=== PATIENT | male | born 1950 | race African-American/Black ===

== ENCOUNTER → 2016-11-22 | Outpatient (CLI) | payer BC, MEDICARE, OTHER ==
[2015-06-26 10:03] VITALS: BP 150/64
[~2016-11-22] MED LIST: AZIT500T PO; CEFP200T PO; GLYB5TAB3 PO; HYDR115S2 PO; METF10002 PO; OLME1TAB35 PO; SIMV20TA3 PO; [UNRECOGNIZED DRUG - OTHER]
--- NOTE | 2016-11-22 11:47 | RAD ---
Indication elevated PSA. Enlarged prostate.. Compromised renal function. Grayscale imaging targeted to the kidneys was performed. Examination is limited. The patient could not cooperate for the exam. Patient body habitus also limited the study. The urinary bladder appeared grossly normal. The right kidney measures 11.3 x 7 x 5.7 cm and appears normal showing no evidence of hydronephrosis or mass. The left kidney was not visualized. IMPRESSION: Limited study. No gross abnormality seen associated with the right kidney. Nonvisualization of the left kidney
--- NOTE | 2016-11-22 11:58 | RAD ---
Indication elevated PSA. Grayscale color Doppler and spectral imaging targeted to the scrotum was performed. The right testicle measures 3.8 x 3 x 2.2 cm and appears normal. No mass is seen. There is normal flow. The right epididymis is diffusely enlarged which may be a reflection of old disease. There is, additionally, a hypoechoic 5 mm mass in the right epididymis compatible with an epididymal cyst. A moderate right hydrocele is noted. The left testicle measures 4 x 3 x 2.3 cm. There is moderately large left hydrocele. There is no testicular mass and there is normal flow to the testicle. The epididymis is slightly enlarged similar to the contralateral side. Note was made during the examination of a right-sided varicocele. IMPRESSION: Normal testicles. Right epididymal cyst. Right-sided varicocele. Bilateral hydroceles left greater than right
== END | disposition home or self-care (01) ==
LOC: US 09:32
PROVIDERS: ATTEND Urology
DX: I86.1 Scrotal varices (principal); N50.3 Cyst of epididymis; N43.3 Hydrocele, unspecified; R97.20 Elevated prostate specific antigen [PSA]; N40.0 Benign prostatic hyperplasia without lower urinary tract symptoms
CPT/HCPCS: 76770; 76870

== ENCOUNTER 2016-12-06 14:16 | Emergency (ER) | payer OTHER ==
[2016-12-06] MEDS ORDERED: oxyCODONE/APAP 10/325 1 TAB TABLET PO ONE (15:00)
[2016-12-06 15:24] LABS: BASO # 0.1 x10^3/uL (0.0-0.2); BASO % 1 % (0-3); EOS # 0.2 x10^3/uL (0.0-0.7); EOS % 3 % (0-3); HEMATOCRIT 45.2 % (39.0-53.0); LYMPH # 1.9 x10^3/uL (1.0-4.8); LYMPH % 20 % (24-48); MEAN CORPUSCULAR HEMOGLOBIN 27 pg (25-35); MEAN CORPUSCULAR HGB CONC 33 g/dL (31-37); MEAN CORPUSCULAR VOLUME 81 fL (79-100); MONO # 1.1 x10^3/uL (0.0-1.1); MONO % 11 % (0-9); NEUT # 6.4 x10^3uL (1.8-7.7); NEUT % 66 % (31-73); PLATELET COUNT 150 x10^3/uL (140-400); RED BLOOD COUNT 5.58 x10^6/uL (4.30-5.70); RED CELL DISTRIBUTION WIDTH 16.9 % (11.5-14.5); WHITE BLOOD COUNT 9.8 x10^3/uL (4.0-11.0)
[2016-12-06 15:29] LABS: ALBUMIN 3.8 g/dL (3.4-5.0); ALBUMIN/GLOBULIN RATIO 0.8 (1.0-1.7); CALCIUM 9.4 mg/dL (8.5-10.1); CREATININE 1.3 mg/dL (0.7-1.3); POTASSIUM 4.1 mmol/L (3.5-5.1); TOTAL BILIRUBIN 0.4 mg/dL (0.2-1.0); TOTAL PROTEIN 8.3 g/dL (6.4-8.2)
--- NOTE | 2016-12-06 15:36 | RAD ---
Examination: CT of the abdomen pelvis without contrast History: History of right flank pain Comparison: 07/04/2014 Technique: Axial CT images of the abdomen pelvis were performed without contrast. Coronal and sagittal reformats were performed. PQRS Compliance Statement: One or more of the following individualized dose reduction techniques were utilized for this examination: 1. Automated exposure control 2. Adjustment of the mA and/or kV according to patient size 3. Use of iterative reconstruction technique collection Findings: The visualized bibasal lungs grossly appears unremarkable. No evidence of free air identified in the abdomen The evaluation of the solid is limited due to lack of IV contrast. The evaluation of the bowel is limited lack of oral contrast. There is a diffuse decreased attenuation noted throughout the liver likely hepatic steatosis. The visualized noncontrasted spleen, adrenals grossly appears unremarkable. Mild fatty atrophic changes of the pancreas. The stomach is mildly distended. Surgical clips are identified about the stomach likely prior surgical changes. Cholecystectomy clips are identified. The small bowel is nondilated. The appendix is normal. Feces and gas noted in the colon. The urinary bladder is mildly distended. Tiny punctate 1 mm intrarenal collecting system calculus identified in the right kidney. No hydronephrosis. Mild aortic atherosclerosis. Mild degenerative changes identified in the visualized thoracal lumbar spine. The caliber of the aorta grossly appears unremarkable. Moderate degenerative changes lumbar spine. Impression: 1. Tiny punctate 1 mm intrarenal system calculus identified in the right kidney. No evidence of hydronephrosis. 2. Hepatic steatosis.
--- NOTE | 2016-12-06 16:23 | ED.ADGEN ---
Past History Past Medical History: Diabetes, Hypertension Past Surgical History: Appendectomy, Cholecystectomy, Other Alcohol Use: None Drug Use: None Adult General Chief Complaint Chief Complaint Flank pain HPI HPI Patient is a 66-year-old Afro-L[place] male who presents with right flank pain. Pain began earlier today waxes and wanes and does not reproduce with position change or movement. Patient denies urinary frequency urgency, or anything pain. No fever chills, nausea vomiting or sweats. No other acute symptoms or complaints. Review of Systems Review of Systems ROS as per HPI. Current Medications Current Medications Current Medications Medications (Trade) Dose Ordered Sig/Jax Start Time Stop Time Status Last Admin Dose Admin Oxycodone/ Acetaminophen (Percocet 10/325) 1 tab 1X ONCE 12/06/16 15:00 12/06/16 15:01 DC 12/06/16 14:54 1 TAB Allergies Allergies Allergies Coded Allergies Type Severity Reaction Last Updated Verified No Known Drug Allergies 06/29/14 No Physical Exam Physical Exam Constitutional: Well developed, well nourished, no acute distress, non-toxic appearance. HENT: Normocephalic, atraumatic, bilateral external ears normal, oropharynx moist, no oral exudates, nose normal. Eyes: PERRLA, EOMI, conjunctiva normal. Neck: Normal range of motion, no tenderness, supple. Cardiovascular:Heart rate regular rhythm, no murmur. Lungs & Thorax: Bilateral breath sounds clear to auscultation. Abdomen: Bowel sounds normal, soft, no tenderness. Exam compromised by body habitus Skin: Warm, dry, no erythema. Back: Right CVA tenderness Extremities: No tenderness. Neurologic: Alert and oriented X 3, normal motor function, normal sensory function, no focal deficits noted. [] Psychologic: Affect normal, judgement normal, mood normal. [] Current Patient Data Vital Signs Vital Signs Date Time Temp Pulse Resp B/P (MAP) Pulse Ox O2 Delivery O2 Flow Rate FiO2 12/06/16 14:16 97.8 94 20 93 Room Air Lab Results Laboratory Tests Test 12/06/16 14:56 12/06/16 16:00 White Blood Count 9.8 x10^3/uL (4.0-11.0) Red Blood Count 5.58 x10^6/uL (4.30-5.70) Hemoglobin 15.0 g/dL (13.0-17.5) Hematocrit 45.2 % (39.0-53.0) Mean Corpuscular Volume 81 fL (79-100) Mean Corpuscular Hemoglobin 27 pg (25-35) Mean Corpuscular Hemoglobin Concent 33 g/dL (31-37) Red Cell Distribution Width 16.9 % (11.5-14.5) H Platelet Count 150 x10^3/uL (140-400) Neutrophils (%) (Auto) 66 % (31-73) Lymphocytes (%) (Auto) 20 % (24-48) L Monocytes (%) (Auto) 11 % (0-9) H Eosinophils (%) (Auto) 3 % (0-3) Basophils (%) (Auto) 1 % (0-3) Neutrophils # (Auto) 6.4 x10^3uL (1.8-7.7) Lymphocytes # (Auto) 1.9 x10^3/uL (1.0-4.8) Monocytes # (Auto) 1.1 x10^3/uL (0.0-1.1) Eosinophils # (Auto) 0.2 x10^3/uL (0.0-0.7) Basophils # (Auto) 0.1 x10^3/uL (0.0-0.2) Sodium Level 140 mmol/L (136-145) Potassium Level 4.1 mmol/L (3.5-5.1) Chloride Level 102 mmol/L (98-107) Carbon Dioxide Level 32 mmol/L (21-32) Anion Gap 6 (6-14) Blood Urea Nitrogen 26 mg/dL (8-26) Creatinine 1.3 mg/dL (0.7-1.3) Estimated GFR (Cockcroft-Gault) 67.0 BUN/Creatinine Ratio 20 (6-20) Glucose Level 134 mg/dL (70-99) H Calcium Level 9.4 mg/dL (8.5-10.1) Total Bilirubin 0.4 mg/dL (0.2-1.0) Aspartate Amino Transferase (AST) 17 U/L (15-37) Alanine Aminotransferase (ALT) 31 U/L (16-63) Alkaline Phosphatase 67 U/L (46-116) Total Protein 8.3 g/dL (6.4-8.2) H Albumin 3.8 g/dL (3.4-5.0) Albumin/Globulin Ratio 0.8 (1.0-1.7) L Urine Collection Type Unknown Urine Color Yellow Urine Clarity Clear Urine pH 6.0 Urine Specific [place] 1.010 Urine Protein Neg (NEG-TRACE) Urine Glucose (UA) >=1000 mg/dL (NEG) Urine Ketones (Stick) Neg mg/dL (NEG) Urine Blood Trace (NEG) Urine Nitrite Neg (NEG) Urine Bilirubin Neg (NEG) Urine Urobilinogen Dipstick 0.2 mg/dL (0.2 mg/dL) Urine Leukocyte Esterase Neg (NEG) Urine RBC 1-2 /HPF (0-2) Urine WBC 1-4 /HPF (0-4) Urine Squamous Epithelial Cells Few /LPF Urine Bacteria 0 /HPF (0-FEW) EKG EKG [] Radiology/Procedures Radiology/Procedures [CT abdomen pelvis: Intrarenal stone on right. Mild aortic disease. No other acute pathology per radiology report.] Course & Med Decision Making Course & Med Decision Making Pertinent Labs and Imaging studies reviewed. (See chart for details) [Episodic right flank pain, resolved with Percocet in the ED. No acute neurologic findings. CT abdomen pelvis shows intrarenal stone.] Final Impression Final Impression [1. Right flank pain] Problems: Dragon Disclaimer Dragon Disclaimer This electronic medical record was generated, in whole or in part, using a voice recognition dictation system. SHY BERRY DO December 06, 2016 16:23
[2016-12-06 16:29] LABS: BILIRUBIN,URINE NEG (NEG); CLARITY,URINE CLEAR; COLOR,URINE YELLOW; GLUCOSE,URINE >=1000 mg/dL (NEG); NITRITE,URINE NEG (NEG); UROBILINOGEN,URINE 0.2 mg/dL (0.2 mg/dL)
[2016-12-06 16:30] LABS: BACTERIA,URINE 0 /HPF (0-FEW); SQUAMOUS EPITHELIAL CELL,UR FEW /LPF
[2016-12-06 17:20] VITALS: BP 158/91
== END 2016-12-06 17:20 | disposition home or self-care (01) ==
LOC: ER 14:16
DX: R10.9 Unspecified abdominal pain (principal); E11.9 Type 2 diabetes mellitus without complications; I10 Essential (primary) hypertension
CPT/HCPCS: 36415; 74176; 80053; 81001; 85027; 99285-25

== ENCOUNTER → 2017-05-14 | Outpatient (CLI) | payer OTHER ==
--- NOTE | 2017-05-14 13:50 | RAD ---
Abdominal ultrasound, 05/14/2017: History: Fatty liver, screening for abdominal aortic aneurysm The gallbladder is surgically absent. The liver demonstrates increased echogenicity and diffuse pattern compatible with hepatic steatosis. It measures approximately 17 cm in craniocaudad extent at the level of the right lobe. No hepatic mass is seen. The common hepatic duct measures 5 mm. The pancreas and central retroperitoneum including the aorta and inferior vena cava were largely obscured due to the patient's size and overlying bowel. Note is made that the abdominal aorta was well visualized on the CT study of 12/06/2016 with no evidence of aneurysm. The spleen is of normal size. No renal abnormality is detected. No free fluid is evident in the abdomen. IMPRESSION: 1. Status post cholecystectomy. 2. Increased hepatic echogenicity suggesting hepatic steatosis. 3. Obscuration of the pancreas and central retroperitoneum due to overlying bowel.
== END | disposition home or self-care (01) ==
LOC: US 07:36
PROVIDERS: ATTEND Nurse Practitioner Family
DX: Z13.6 Encounter for screening for cardiovascular disorders (principal); Z87.891 Personal history of nicotine dependence; Z90.49 Acquired absence of other specified parts of digestive tract
CPT/HCPCS: 76700

== ENCOUNTER 2018-05-06 11:46 | Inpatient (IN) | payer OTHER ==
[~2018-05-06] VITALS: Ht 172.7 cm; Wt 163.0 kg
[~2018-05-06 11:46] MED LIST changes: -METF10002 PO; +METF10007 PO
[2018-05-06 12:21] LABS: BASO # 0.1 x10^3/uL (0.0-0.2); BASO % 1 % (0-3); EOS # 0.3 x10^3/uL (0.0-0.7); EOS % 4 % (0-3); HEMATOCRIT 35.9 % (39.0-53.0); HEMOGLOBIN 11.8 g/dL (13.0-17.5); LYMPH # 1.3 x10^3/uL (1.0-4.8); LYMPH % 15 % (24-48); MEAN CORPUSCULAR HEMOGLOBIN 27 pg (25-35); MEAN CORPUSCULAR HGB CONC 33 g/dL (31-37); MEAN CORPUSCULAR VOLUME 82 fL (79-100); MONO # 0.6 x10^3/uL (0.0-1.1); MONO % 7 % (0-9); NEUT # 6.5 x10^3uL (1.8-7.7); NEUT % 74 % (31-73); PLATELET COUNT 190 x10^3/uL (140-400); RED CELL DISTRIBUTION WIDTH 15.1 % (11.5-14.5); WHITE BLOOD COUNT 8.8 x10^3/uL (4.0-11.0)
--- NOTE | 2018-05-06 12:28 | RAD ---
Chest, PA and Lateral: Technique: PA and lateral views of the chest were obtained. History: Shortness of breath. Comparison: 09/24/2016. Findings: Mild cardiomegaly.. Mild prominent interstitial lung markings identified in the bilateral lungs appears similar to prior exam.. The pleural margins are clear. Impression: Mild prominent bilateral interstitial lung markings could be mild congestive changes or interstitial infiltrates.. Electronically signed by: Cornelius Rabago MD (05/06/2018 12:25 PM) [id number]
[2018-05-06] MEDS ORDERED: IPRATRPIUM/ALBUTEROL 0.5/2.5MG 3 ML NEBU. NEB ONE (12:30)
[2018-05-06 12:37] LABS: ALBUMIN 3.8 g/dL (3.4-5.0); ALBUMIN/GLOBULIN RATIO 0.9 (1.0-1.7); CALCIUM 8.7 mg/dL (8.5-10.1); CREATININE 2.1 mg/dL (0.7-1.3); GFR 38.4; MAGNESIUM 1.9 mg/dL (1.8-2.4); POTASSIUM 3.8 mmol/L (3.5-5.1); TOTAL BILIRUBIN 0.8 mg/dL (0.2-1.0); TOTAL PROTEIN 7.9 g/dL (6.4-8.2)
[2018-05-06] MEDS ORDERED: FUROSEMIDE 40 MG/4 ML VIAL IVP ONE (13:15)
--- NOTE | 2018-05-06 13:21 | PHYS DOC ---
Past History Past Medical History: Diabetes, Hypertension Past Surgical History: Appendectomy, Cholecystectomy, Other Alcohol Use: None Drug Use: None Adult General Chief Complaint Chief Complaint: SHORTNESS OF BREATH HPI HPI Patient is a 67 year old male who sent from his primary care physician office because of shortness of breath. Patient complaining of exertional shortness of breath since yesterday that is different and more than his usual without chest pain and cough. Patient complaining of generalized weakness without fever and chills, change of chronic lower extremity edema, vomiting and diarrhea. Patient taking diuretic and drinking more than eighth cups of liquid every day. Review of Systems Review of Systems Constitutional: Denies fever or chills [] Eyes: Denies change in visual acuity, redness, or eye pain [] HENT: Denies nasal congestion or sore throat [] Respiratory: Reports shortness of breath] Cardiovascular: No additional information not addressed in HPI [] GI: Denies abdominal pain, nausea, vomiting, bloody stools or diarrhea [] : Denies dysuria or hematuria [] Musculoskeletal: Denies back pain or joint pain [] Integument: Denies rash or skin lesions [] Neurologic: Denies headache, focal weakness or sensory changes [] Endocrine: Denies polyuria or polydipsia [] All other systems were reviewed and found to be within normal limits, except as documented in this note. Current Medications Current Medications Current Medications Medications (Trade) Dose Ordered Sig/Jax Start Time Stop Time Status Last Admin Dose Admin Albuterol/ Ipratropium (Duoneb) 3 ml 1X ONCE 05/06/18 12:30 05/06/18 12:31 DC 05/06/18 12:17 3 ML Furosemide (Lasix) 40 mg 1X ONCE 05/06/18 13:15 05/06/18 13:16 Allergies Allergies Allergies Coded Allergies Type Severity Reaction Last Updated Verified No Known Drug Allergies 06/29/14 No Physical Exam Physical Exam Constitutional: Well developed, well nourished, mild distress, non-toxic appearance, morbidly obese. [] HENT: Normocephalic, atraumatic, oropharynx moist, no oral exudates, nose normal. [] Eyes: PERRLA, EOMI, conjunctiva normal, no discharge. [] Neck: Normal range of motion, no tenderness, supple, no stridor. [] Cardiovascular:Heart rate regular rhythm, no murmur [] Lungs & Thorax: Bibasilar rates, decrease of air movement, no respiratory distress Abdomen: Bowel sounds normal, soft, no tenderness, no masses, no pulsatile masses. [] Skin: Warm, dry, no erythema, no rash. [] Back: No tenderness, no CVA tenderness. [] Extremities: No tenderness, no cyanosis, no clubbing, ROM intact, bilateral lower extremity elephantiasis Neurologic: Alert and oriented X 3, normal motor function, normal sensory function, no focal deficits noted. [] Psychologic: Affect normal, judgement normal, mood normal. [] Current Patient Data Vital Signs Vital Signs Date Time Temp Pulse Resp B/P (MAP) Pulse Ox O2 Delivery O2 Flow Rate FiO2 05/06/18 11:56 98.0 77 20 96 Room Air Lab Results Laboratory Tests Test 05/06/18 12:03 White Blood Count 8.8 x10^3/uL (4.0-11.0) Red Blood Count 4.40 x10^6/uL (4.30-5.70) Hemoglobin 11.8 g/dL (13.0-17.5) L Hematocrit 35.9 % (39.0-53.0) L Mean Corpuscular Volume 82 fL (79-100) Mean Corpuscular Hemoglobin 27 pg (25-35) Mean Corpuscular Hemoglobin Concent 33 g/dL (31-37) Red Cell Distribution Width 15.1 % (11.5-14.5) H Platelet Count 190 x10^3/uL (140-400) Neutrophils (%) (Auto) 74 % (31-73) H Lymphocytes (%) (Auto) 15 % (24-48) L Monocytes (%) (Auto) 7 % (0-9) Eosinophils (%) (Auto) 4 % (0-3) H Basophils (%) (Auto) 1 % (0-3) Neutrophils # (Auto) 6.5 x10^3uL (1.8-7.7) Lymphocytes # (Auto) 1.3 x10^3/uL (1.0-4.8) Monocytes # (Auto) 0.6 x10^3/uL (0.0-1.1) Eosinophils # (Auto) 0.3 x10^3/uL (0.0-0.7) Basophils # (Auto) 0.1 x10^3/uL (0.0-0.2) Sodium Level 144 mmol/L (136-145) Potassium Level 3.8 mmol/L (3.5-5.1) Chloride Level 105 mmol/L (98-107) Carbon Dioxide Level 31 mmol/L (21-32) Anion Gap 8 (6-14) Blood Urea Nitrogen 19 mg/dL (8-26) Creatinine 2.1 mg/dL (0.7-1.3) H Estimated GFR (Cockcroft-Gault) 38.4 BUN/Creatinine Ratio 9 (6-20) Glucose Level 136 mg/dL (70-99) H Lactic Acid Level 1.0 mmol/L (0.4-2.0) Calcium Level 8.7 mg/dL (8.5-10.1) Magnesium Level 1.9 mg/dL (1.8-2.4) Total Bilirubin 0.8 mg/dL (0.2-1.0) Aspartate Amino Transferase (AST) 14 U/L (15-37) L Alanine Aminotransferase (ALT) 19 U/L (16-63) Alkaline Phosphatase 81 U/L (46-116) Creatine Kinase 252 U/L (39-308) Troponin I Quantitative < 0.017 ng/mL (0-0.055) XE-Hyq-W-Type Natriuretic Peptide 685 pg/mL (0-124) H Total Protein 7.9 g/dL (6.4-8.2) Albumin 3.8 g/dL (3.4-5.0) Albumin/Globulin Ratio 0.9 (1.0-1.7) L EKG EKG EKG interpreted by me. EKG at 1250 showed normal sinus rhythm at rate of 82, prolonged ND interval at 258, left atrial abnormalities, left knott axis, poor R- wave progress in anteroseptal leads, no acute ST and T-wave abnormalities Radiology/Procedures Radiology/Procedures [address] [address] IMAGING REPORT Signed PATIENT: JULIO CESAR KRAUSE ACCOUNT: [id number] : 1950 LOCATION: ER AGE: 67 SEX: M EXAM STATUS: REG ER ORD. PHYSICIAN: KADEN VALENZUELA MD REASON: shortness of breath PROCEDURE: CHEST PA & LATERAL Chest, PA and Lateral: Technique: PA and lateral views of the chest were obtained. History: Shortness of breath. Comparison: 09/24/2016. Findings: Mild cardiomegaly.. Mild prominent interstitial lung markings identified in the bilateral lungs appears similar to prior exam.. The pleural margins are clear. Impression: Mild prominent bilateral interstitial lung markings could be mild congestive changes or interstitial infiltrates.. Electronically signed by: Cornelius Rabago MD (05/06/2018 12:25 PM) [id number] DICTATED AND SIGNED BY: CORNELIUS RABAGO MD DATE: 05/06/18 1221 CC: KADEN VALENZUELA MD; JOSE VAN DO ~ Course & Med Decision Making Course & Med Decision Making Pertinent Labs and Imaging studies reviewed. (See chart for details) Evaluation of patient in ER showed 67-year-old male patient with complaining of increasing shortness of breath since yesterday without chest pain, cough or fever and chills. Patient had bilateral lower lung rales without respiratory distress. Chest x-ray and labs showed CHF and mild elevation of d-dimer. Patient treated with Lasix. Documented except the admission at 1314. Dragon Disclaimer Dragon Disclaimer This electronic medical record was generated, in whole or in part, using a voice recognition dictation system. Departure Departure: Impression: Primary Impression: CHF exacerbation Additional Impressions: Dyspnea Morbid obesity Renal insufficiency Elephantiasis Anemia Elevated d-dimer Disposition: ADMITTED INPATIENT (at 1315) Admitting Physician: Nir Alvarado (accepted admission at 1314) Condition: IMPROVED Referrals: JOSE VAN DO (PCP) Problem Qualifiers KADEN VALENZUELA MD May 06, 2018 13:21
--- NOTE | 2018-05-06 13:37 | EKG ---
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
[2018-05-06 15:30] VITALS: BP 161/80
[2018-05-06] MEDS ORDERED: POTA10TA10 PO (16:47)
[2018-05-06] MEDS ORDERED: FURO-68 PO (16:47)
[2018-05-06] MEDS ORDERED: AMLO10TA6 PO (16:47)
[2018-05-06] MEDS ORDERED: SIMV80TA7 PO (16:47)
[2018-05-06] MEDS ORDERED: OMEP40CA5 PO (16:47)
[2018-05-06 19:35] VITALS: BP 152/83
[2018-05-06] MEDS ORDERED: ATORVASTATIN CALCIUM 20 MG TABLET PO SCH (21:00)
[2018-05-06] MEDS: POTASSIUM CHLORIDE 20 MEQ TABLET.ER. PO SCH (21:01)
[2018-05-06] MEDS: PANTOPRAZOLE 40 MG TABLET. PO SCH (21:01)
--- NOTE | 2018-05-06 21:10 | HP ---
ADMIT DATE: 05/06/2018 HISTORY OF PRESENT ILLNESS: The patient is a 67-year-old -[place] male patient who came to the Emergency Room, complaining of shortness of breath that started Saturday evening and continued until Saturday and he came this morning. He also complained of a cough with scanty white sputum. Also, marked swelling of both lower extremities that has been going on for almost 6 months now. He did gain some weight. He said that his weight in his office about 6 months ago was 375 and today, he weighed 385. He was extensively investigated in the Emergency Room and was found to have impaired kidney function with a creatinine of 2.1, slightly elevated beta-natriuretic peptide of 685. His D-dimer was high at 1.08, has also mild normochromic normocytic anemia. His chest x-ray showed mild cardiomegaly, mild prominent interstitial lung markings identified in the bilateral lung, appears similar to prior exam. The pleural margins are clear and it was attributed to mild congestive changes, interstitial infiltrate. His first set of cardiac enzymes showed troponin to be less than 0.017. The patient was admitted to do 2 more sets of cardiac enzymes, to consult Cardiology team as he probably has acute on chronic diastolic congestive heart failure. PAST MEDICAL HISTORY: Significant for type 2 diabetes, hyperlipidemia, hypertension and benign prostatic hypertrophy. PAST SURGICAL HISTORY: Significant for nasal surgery, carpal tunnel release, cholecystectomy, ventral hernia repair twice. He also underwent esophagogastroduodenoscopy and colonoscopy. ALLERGIES: He has no known drug allergies. MEDICATIONS: We are actually contacting his pharmacy to know exactly what medications he is on as he does not really know exactly what he is on now. FAMILY HISTORY: He has one brother, older and has diabetes. One sister is still alive and younger and has hypertension. His father is still alive at age 95 and has prostate cancer. Mother is alive at the age of 85 and has hypertension, hyperlipidemia. SOCIAL HISTORY: He is , has 2 sons, one of them lives with him and one lives next door. He quit smoking in 1979. He smoked for 13 years, about half a pack a day. He quit drinking alcohol when he was 53 years old. He quit marijuana also. 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. REVIEW OF SYSTEMS: The patient denied any blurring of vision, cataract, glaucoma or macular degeneration. Denied any earache, tinnitus or sensorineural deafness. Denied any nosebleeds, stuffy nose or postnasal drip. Denied any sore throat, sore tongue, toothache, hoarseness of voice or difficulty swallowing. He denied any nausea, vomiting, diarrhea or constipation. Denied any hematemesis, melena or hematochezia. Denied any dysuria, frequency or hematuria. Denied any chest pain, shortness of breath, orthopnea, paroxysmal nocturnal dyspnea. Denied any cough, phlegm or hemoptysis. Denied any chills, rigors or fever. Denied any dizziness, lightheadedness, or vertigo. He has an adjustable bed and he has orthopnea, but denied any paroxysmal nocturnal dyspnea. He has also marked exertional dyspnea. He said he can only walk a few feet with marked swelling of both lower extremities. PHYSICAL EXAMINATION: GENERAL: On examining him, he was sitting in the edge of the bed comfortably in no apparent respiratory distress. He was pale, but no jaundice, cyanosis, lymphadenopathy, no thyromegaly. No jugular venous distention with marked bilateral lower extremity edema. VITAL SIGNS: His heart rate was 88, blood pressure was 161/80, temperature was 98, respiratory rate 22 and oxygen saturation was 96%. HEENT: Showed normocephalic, atraumatic. NECK: Supple. HEART: Showed normal first and second heart sounds. No gallop, rub or murmur. CHEST: Clear to auscultation. No crepitation or rhonchi. ABDOMEN: Distended, soft, nontender. No guarding or rigidity. No organomegaly. Hernial orifice intact. Bowel sounds normal. NEUROLOGIC: He was awake, alert, responding appropriately. All cranial nerves intact. EXTREMITIES: He moves extremities without difficulty, ambulates without assistance or assistive devices. LABORATORY DATA: Showed a white cell count of 8800, hemoglobin 11.8, hematocrit 35.9, MCV 82 and platelet count of 190,000 with normal manual differential. His serum sodium was 144, potassium 3.8, chloride 105, bicarbonate 31, anion gap of 8, BUN 19, creatinine 2.1, estimated GFR was 38 mL per minute. His glucose is 136, calcium was 8.7, magnesium was 1.9. Total bilirubin, AST, ALT, alkaline phosphatase were normal. His CK was only 252. First set of cardiac enzymes show troponin to be less than 0.017 and beta-natriuretic peptide was 651. Total protein was 7.9, albumin was 3.8. His prothrombin time was 11, INR 1.1, aPTT was 27 and D-dimer was 1.08. RADIOLOGICAL DATA: His chest x-ray showed the patient has mild cardiomegaly with mild prominent bilateral interstitial lung markings. could be mild congestive changes or interstitial infiltrate. ASSESSMENT AND PLAN: The patient was treated with a dose of 40 mg of IV Lasix as well as albuterol and Atrovent. We will do 2 more sets of cardiac enzymes, check his fasting lipid profile tomorrow and consult the cardiology team. He seemed to have acute onset congestive heart failure, likely diastolic. LEONILA COLMENARES MD DR: TINY/gaurav JOB#: [id number] / [id number]
[2018-05-06 22:25] VITALS: BP 157/80
[2018-05-07 05:40] VITALS: BP 148/81
[2018-05-07 06:14] LABS: CALCIUM 8.2 mg/dL (8.5-10.1); GFR 40.7; POTASSIUM 3.6 mmol/L (3.5-5.1)
[2018-05-07] MEDS: amLODIPine BESYLATE 10 MG TABLET PO SCH (08:54)
[2018-05-07] MEDS: POTASSIUM CHLORIDE 20 MEQ TABLET.ER. PO SCH ×2 (08:54→21:36)
[2018-05-07] MEDS: PANTOPRAZOLE 40 MG TABLET. PO SCH ×2 (08:54→21:36)
--- NOTE | 2018-05-07 09:53 | PDOC2 ---
BLANE RCUZ DEPUTY SHERIFF 05/07/18 0953: CONSULT Date of Admission DATE: 05/07/18 TIME: 09:52 Reason for Consult: chf Problem List Problems Medical Problems: (1) Anemia Status: Acute (2) CHF exacerbation Status: Acute (3) Dyspnea Status: Acute (4) Elephantiasis Status: Acute (5) Elevated d-dimer Status: Acute (6) Morbid obesity Status: Acute (7) Renal insufficiency Status: Acute History of Present Illness Mr Don is a 67-year-old male with history of hypertension, hyperlipidemia , diabetes mellitus and asthma who presented to his PCP clinic yesterday with complaints of sudden onset dyspnea and dyspnea on exertion as well as non productive cough. He reports that he had been having a mild cough that progressed to dyspnea on exertion with walking 50 feet and with ADLs and light housework. He denies orthopnea or PND but does sleep for many years with elevated head of bed for comfort. He has chronic lymphedema and is unable to say if this is worse. His weight was 384 lbs which was up 6 pounds from his August appt. He was given IV lasix and breathing treatments and is unable to say which helped more but reports feeling much better today. He reports a history of asthma but doesn't use nebulizers or MDIs regularly. He had apparently been using nebulizers regular at home for the last 24 hours without relief. He denies any fever/chills/nausea/vomiting. He reports minimal sputum production with the cough and describes it as clear. He denies any other upper respiratory symptoms. He denies any chest discomfort/pain, palpitations, lightheadedness or syncope. He does however describes a feeling of chest congestion or fullness that has since resolved. Cardiovascular: HTN, hyperipidemia Pulmonary: Asthma CENTRAL NERVOUS SYSTEM: Periperal neuropathy (hand) Musculoskeletal: Swelling Renal/: Benign prostatic enlarg. Endocrine: Diabetes Past Surgical History hernia repair, cholecystectomy, septoplasty, carpal tunnel Family History prostate cancer, hyperlipidemia, hypertension and diabetes. No premature coronary disease Social History prior smoker, quit 1979, prior history of alcohol use, quit 13 yrs, and marijuana, quit 40 yrs. Current Medications Home meds reported 05/06/18 in PCP office: Simvastatin 80mg daily amlodipine 10mg daily Lasix 40mg daily DiovanHCT 320/25 daily Potassium 20meq daily Current Medications Albuterol/ Ipratropium (Duoneb) 3 ml 1X ONCE NEB Last administered on at 12:17; Start 05/06/18 at 12:30; Stop 05/06/18 at 12:31; Status DC Furosemide (Lasix) 40 mg 1X ONCE IVP Last administered on 05/06/18at 13:19; Start 05/06/18 at 13:15; Stop 05/06/18 at 13:16; Status DC Amlodipine Besylate (Norvasc) 10 mg DAILY PO Last administered on 05/07/18at 08 :54; Start 05/07/18 at 09:00 Pantoprazole Sodium (Protonix) 40 mg BID PO Last administered on 05/07/18at 08: 54; Start 05/06/18 at 21:00 Potassium Chloride (Klor-Con) 20 meq BID PO Last administered on 05/07/18at 08: 54; Start 05/06/18 at 21:00 Atorvastatin Calcium (Lipitor) 40 mg QHS PO Last administered on 05/06/18at 21: 01; Start 05/06/18 at 21:00 Active Scripts Active Reported Amlodipine Besylate 10 Mg Tablet 1 Tab PO DAILY Omeprazole 40 Mg Capsule.dr 40 Mg PO BID Lasix (Furosemide) 40 Mg Tablet 1 Tab PO DAILY Potassium Chloride 10 Meq Tablet.er 20 Meq PO BID Simvastatin 80 Mg Tablet 1 Tab PO QHS Allergies: Coded Allergies: No Known Drug Allergies (Unverified , 06/29/14) Review of System as per HPI or negative General: Alert, Oriented X3, Cooperative, No acute distress HEENT: Atraumatic, EOMI, Mucous membr. moist/pink, Other (no carotid bruits) Lungs: Clear to auscultation, Normal air movement Heart: Regular rate, Normal S1, Normal S2, Other (no gallops, clicks or rubs) Abdomen: Normal bowel sounds, Soft, No tenderness, Other (obese) Extremities: Other (bilateral lower extremity lymphedema, non pitting) Neuro: Normal speech, Strength at 5/5 X4 ext Psych/Mental Status: Mental status NL, Mood NL VITALS Vital Signs Date Time Temp Pulse Resp B/P (MAP) Pulse Ox O2 Delivery O2 Flow Rate FiO2 05/07/18 08:54 85 148/81 05/07/18 08:50 Room Air 05/07/18 05:40 98.4 20 94 Labs Laboratory Tests Test 05/06/18 12:03 05/06/18 12:52 05/06/18 16:50 05/06/18 20:20 White Blood Count 8.8 x10^3/uL (4.0-11.0) Red Blood Count 4.40 x10^6/uL (4.30-5.70) Hemoglobin 11.8 g/dL (13.0-17.5) Hematocrit 35.9 % (39.0-53.0) Mean Corpuscular Volume 82 fL (79-100) Mean Corpuscular Hemoglobin 27 pg (25-35) Mean Corpuscular Hemoglobin Concent 33 g/dL (31-37) Red Cell Distribution Width 15.1 % (11.5-14.5) Platelet Count 190 x10^3/uL (140-400) Neutrophils (%) (Auto) 74 % (31-73) Lymphocytes (%) (Auto) 15 % (24-48) Monocytes (%) (Auto) 7 % (0-9) Eosinophils (%) (Auto) 4 % (0-3) Basophils (%) (Auto) 1 % (0-3) Neutrophils # (Auto) 6.5 x10^3uL (1.8-7.7) Lymphocytes # (Auto) 1.3 x10^3/uL (1.0-4.8) Monocytes # (Auto) 0.6 x10^3/uL (0.0-1.1) Eosinophils # (Auto) 0.3 x10^3/uL (0.0-0.7) Basophils # (Auto) 0.1 x10^3/uL (0.0-0.2) Sodium Level 144 mmol/L (136-145) Potassium Level 3.8 mmol/L (3.5-5.1) Chloride Level 105 mmol/L (98-107) Carbon Dioxide Level 31 mmol/L (21-32) Anion Gap 8 (6-14) Blood Urea Nitrogen 19 mg/dL (8-26) Creatinine 2.1 mg/dL (0.7-1.3) Estimated GFR (Cockcroft-Gault) 38.4 BUN/Creatinine Ratio 9 (6-20) Glucose Level 136 mg/dL (70-99) Lactic Acid Level 1.0 mmol/L (0.4-2.0) Calcium Level 8.7 mg/dL (8.5-10.1) Magnesium Level 1.9 mg/dL (1.8-2.4) Total Bilirubin 0.8 mg/dL (0.2-1.0) Aspartate Amino Transf (AST/SGOT) 14 U/L (15-37) Alanine Aminotransferase (ALT/SGPT) 19 U/L (16-63) Alkaline Phosphatase 81 U/L (46-116) Creatine Kinase 252 U/L (39-308) Troponin I Quantitative < 0.017 ng/mL (0-0.055) < 0.017 ng/mL (0-0.055) < 0.017 ng/mL (0-0.055) JZ-Uah-G-Type Natriuretic Peptide 685 pg/mL (0-124) Total Protein 7.9 g/dL (6.4-8.2) Albumin 3.8 g/dL (3.4-5.0) Albumin/Globulin Ratio 0.9 (1.0-1.7) Prothrombin Time 11.0 SEC (9.4-11.4) Prothromb Time International Ratio 1.1 (0.9-1.1) Activated Partial Thromboplast Time 27 SEC (23-33) D-Dimer (Do) 1.08 mg/L (0.00-0.50) Test 05/06/18 20:59 05/07/18 05:45 05/07/18 07:34 Glucose (Fingerstick) 120 mg/dL (70-99) 95 mg/dL (70-99) Sodium Level 143 mmol/L (136-145) Potassium Level 3.6 mmol/L (3.5-5.1) Chloride Level 105 mmol/L (98-107) Carbon Dioxide Level 31 mmol/L (21-32) Anion Gap 7 (6-14) Blood Urea Nitrogen 18 mg/dL (8-26) Creatinine 2.0 mg/dL (0.7-1.3) Estimated GFR (Cockcroft-Gault) 40.7 Glucose Level 97 mg/dL (70-99) Calcium Level 8.2 mg/dL (8.5-10.1) Images CXR - Mild prominent bilateral interstitial lung markings could be mild congestive changes or interstitial infiltrates. Assessment/Plan 1. acute respiratory insufficiency - likely acute diastolic heart failure secondary to uncontrolled HTN. Possibly component of COPD exacerbation. Currently well compensated, diuresed ~1.5 liters. Await echo for LV function. 2. accelerated hypertension - resume home medications including Diovan, amlodipine, lasix 3. hyperlipidemia - check lipids and resume home statin. 4. CKD stage 3 - Cr currently 2.0. Cr in Aug 2.4, in Mar 2017 Cr was 1.4. Consider renal consult. ? 24 hr urine. 5. diabetes mellitus - per PCP, consider alternative to Actos 6. lymphedema - per PCP 7. elevated d dimer - venous duplex and if negative VQ Consider outpatient MPI due to multiple patient risk factors. MALVIN LUZ MD 05/07/18 1621: CONSULT Assessment/Plan Pt. seen and examined. 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 No angina. Dyspnea likely due to obesity echo with normal LV function. Supportive care with outpt MPI to be considered. BLANE CRUZ APRN May 07, 2018 09:53 MALVIN LUZ MD May 07, 2018 16:21
--- NOTE | 2018-05-07 10:05 | CARD ---
MR#: [id number] Date of Study: 05/07/2018 Ordering Physician: LEONILA COLMENARES, Referring Physician: LEONILA COLMENARES Tech: Louisa Gonsalez RDCS APPROVED REPORT EXAM: Two-dimensional and M-mode echocardiogram with Doppler and color Doppler. Other Information Quality : Fair INDICATION LV Function:Systolic Congestive Heart Failure RISK FACTORS Obesity 2D DIMENSIONS RVDd3.0 (2.9-3.5cm)Left Atrium(2D)4.8 (1.6-4.0cm) IVSd1.6 (0.7-1.1cm)Aortic Root(2D)2.9 (2.0-3.7cm) LVDd5.2 (3.9-5.9cm)LVOT Diameter2.3 (1.8-2.4cm) PWd1.6 (0.7-1.1cm)LVDs4.4 (2.5-4.0cm) FS (%) 30.0 %SV39.4 ml LVEF(%)60.0 (>50%) Aortic Valve AoV Peak Robe.136.6cm/sAoV VTI24.4cm AO Peak GR.7.5mmHgLVOT Peak Robe.94.1cm/s LVOT VTI 22.90cmAO Mean GR.4mmHg ZAID (VMAX)2.30ep2YDQ (VTI)3.75cm2 Mitral Valve MV E Afcrpwpr874.0cm/sMV DECEL [id number] MV A Xqkhjtbf120.2cm/sE/A Ratio0.9 Pulmonary Vein S1 Rmxmymqj18.9cm/sD2 Cmqrtbmq87.3cm/s LEFT VENTRICLE The left ventricle is normal size. There is mild to moderate concentric left ventricular hypertrophy. The left ventricular systolic function is normal. The Ejection Fraction is 55-60%. There is normal L V segmental wall motion. Transmitral Doppler flow pattern is Grade I-abnormal relaxation pattern. RIGHT VENTRICLE The right ventricle is normal size. The right ventricular systolic function is normal. ATRIA The left atrium is mildly dilated. The right atrium size is normal. The interatrial septum is intact with no evidence for an atrial septal defect or patent foramen ovale as noted on 2-D or Doppler imagi ng. AORTIC VALVE The aortic valve is calcified but opens well. Doppler and Color Flow revealed no significant aortic r egurgitation. There is no significant aortic valvular stenosis. MITRAL VALVE The mitral valve is normal in structure and function. There is no evidence of mitral valve prolapse. There is no mitral valve stenosis. Doppler and Color-flow revealed mild mitral regurgitation. TRICUSPID VALVE The tricuspid valve is normal in structure and function. Doppler and Color Flow revealed no tricuspid valve regurgitation noted. There is no tricuspid valve stenosis. PULMONIC VALVE The pulmonic valve is not well visualized. Doppler and Color Flow revealed no pulmonic valvular regur gitation. There is no pulmonic valvular stenosis. GREAT VESSELS The aortic root is normal in size. The ascending aorta is normal in size. The IVC was not visualized. PERICARDIAL EFFUSION There is no evidence of significant pericardial effusion. Critical Notification Critical Value: No <Conclusion> The left ventricular systolic function is normal. The Ejection Fraction is 55-60%. There is normal LV segmental wall motion. Doppler and Color-flow revealed mild mitral regurgitation. There is no evidence of significant pericardial effusion. Signed by : Del Edwards, Electronically Approved : 05/07/2018 10:05:04
[2018-05-07 10:32] VITALS: BP 159/73
[2018-05-07 14:33] VITALS: BP 122/73
[2018-05-07] MEDS: HEPARIN PF for SUB-Q USE 5,000 UNIT/0.5 ML VIAL. SQ SCH ×2 (14:34→21:44)
[2018-05-07 15:45] LABS: CALCIUM 8.8 mg/dL (8.5-10.1); GFR 40.7; POTASSIUM 3.9 mmol/L (3.5-5.1)
--- NOTE | 2018-05-07 17:09 | RAD ---
RENAL COMPLETE BILATERAL History: Impaired kidney function Comparison: None. Findings: Sonographic images of the abdomen are submitted. Exam is very limited due to patient's body habitus. Right kidney is faintly visualized estimated about 12.4 x 5 cm x 5.2 cm without hydronephrosis. Left kidney is not well-visualized. Bladder is not well visualized. Impression: 1. Right kidney is visualized without significant hydronephrosis, left kidney not seen. Electronically signed by: Tiago Arboleda MD (05/07/2018 5:06 PM) [id number]
--- NOTE | 2018-05-07 18:11 | RAD ---
Nuclear medicine ventilation/perfusion scan. History: Shortness of air. Symptoms for 2 days. Elevated d-dimer. Comparison: Chest radiograph . Technique: Ventilation portion was performed after inhalation of 18.5 mCi Xenon-133. Perfusion portion was performed after intravenous administration of 5.4 mCi Tc 99m MAA. Findings: Ventilation study is normal. Perfusion study demonstrates no large wedge-shaped perfusion defects. There is mildly heterogeneous perfusion. Examination is considered low probability. Impression: Low probability VQ scan. Electronically signed by: Jaiden Ramirez MD (05/07/2018 6:07 PM) [facility]
[2018-05-07 19:40] VITALS: BP 164/84
[2018-05-07] MEDS ORDERED: ATORVASTATIN CALCIUM 20 MG TABLET PO SCH (21:00)
[2018-05-07 22:52] VITALS: BP 133/74
[2018-05-07 23:12] LABS: HEMOGLOBIN A1C 6.8 % (4.8-5.6)
--- NOTE | 2018-05-08 03:54 | PN ---
DATE: 05/07/2018 SUBJECTIVE: The patient is resting, slightly propped up in bed, no apparent distress. He is awake, alert. On questioning him, he denied any complaint, in particular he has had no further episodes of shortness of breath. He has had 3 sets of cardiac enzymes that ruled out myocardial infarction. However, apparently, it transpired that his serum creatinine about a year ago was only 1.2 and his creatinine has risen since then. The patient denied any symptoms suggestive of enlarged prostate or urinary retention. His lab work also showed elevated D-dimer of 1.08. Clinically, the patient does not seem to be fluid overloaded and his echocardiogram done showed that his ejection fraction showed that his left ventricular systolic function is normal, ejection fraction 55-60%. He has normal left ventricular segmental wall motion, showed he has mild mitral regurgitation and no significant pericardial effusion. PLAN: To arrange for him to have a V/Q scan. He did have a Doppler ultrasound. The results of which is still pending at the time of this dictation. I will start him on heparin 5000 units subcutaneously 3 times a day for DVT prophylaxis and await the result of the imaging studies. LEONILA COLMENARES MD DR: TINY/gaurav JOB#: [id number] / [id number]
--- NOTE | 2018-05-08 04:45 | RAD ---
MR#: [id number] Date of Study: 05/07/2018 Ordering Physician: BLANE CRUZ, Referring Physician: LEONILA COLMENARES, Tech: Nathaly Miller RDMS, WICHOT, RTR APPROVED REPORT Bilateral Lower Extremity Venous Study for DVT Patient Location: IN-PATIENT Indications Lower Extremity Edema: Bilateral Grayscale images of the bilateral common femoral, saphenofemoral junctions, proximal, mid and distal superficial femoral veins and popliteal veins are limited but grossly there is no evidence of thrombu s with compressibility of these vessels noted. Spectral waveforms and color Doppler do not reveal any significant obstruction to flow. The below-knee veins are not well visualized but there is spontaneo us flow noted. Overall, technically difficult study but no gross evidence of proximal DVT Critical Notification Critical Value: No <Conclusion> 1. Technically very difficult study but within these limitations no gross evidence of proximal DVT bi laterally in the lower extremities Signed by : Charly Starkey, Electronically Approved : 05/08/2018 04:44:56
[2018-05-08 05:08] VITALS: BP 137/79
[2018-05-08] MEDS: HEPARIN PF for SUB-Q USE 5,000 UNIT/0.5 ML VIAL. SQ SCH ×2 (05:28→14:00)
[2018-05-08 06:07] LABS: CALCIUM 8.8 mg/dL (8.5-10.1); GFR 40.7; POTASSIUM 3.8 mmol/L (3.5-5.1)
[2018-05-08] MEDS: POTASSIUM CHLORIDE 20 MEQ TABLET.ER. PO SCH (08:37)
[2018-05-08] MEDS: amLODIPine BESYLATE 10 MG TABLET PO SCH (08:37)
[2018-05-08] MEDS: PANTOPRAZOLE 40 MG TABLET. PO SCH (08:37)
--- NOTE | 2018-05-08 09:46 | PDOC ---
PROGRESS NOTES Diagnosis Problem Problems Medical Problems: (1) Anemia Status: Acute (2) CHF exacerbation Status: Acute (3) Dyspnea Status: Acute (4) Elephantiasis Status: Acute (5) Elevated d-dimer Status: Acute (6) Morbid obesity Status: Acute (7) Renal insufficiency Status: Acute Assessment Problems Medical Problems: (1) Anemia Status: Acute (2) CHF exacerbation Status: Acute (3) Dyspnea Status: Acute (4) Elephantiasis Status: Acute (5) Elevated d-dimer Status: Acute (6) Morbid obesity Status: Acute (7) Renal insufficiency Status: Acute 1. acute on chronic diastolic heart failure - compensated. Normal LV function , normal wall motion, mild MR by echo. 2. hypertension - improved control. On amlodipine. add hydralazine as needed. No ACEI/ARB at this time due to renal insufficiency. 3. CKD stage 3, Cr 2.0 today. Cr was normal at 1.2 in Mar of last year. Suggest outpatient renal evaluation and needs 24 hour urine testing. 4. hyperlipidemia - well controlled. Home on lipitor, no zocor due to amlodipine. 5. DM - per PCP 6. elevated d dimer - neg venous duplex and VQ Will plan for outpatient MPI (scheduled) due to multiple risk factors and follow up (scheduled). Subjective feeling fine, no dyspnea, no chest pain, no palpitations Objective Vital Signs Date Time Temp Pulse Resp B/P (MAP) Pulse Ox O2 Delivery O2 Flow Rate FiO2 05/08/18 08:37 86 137/79 05/08/18 08:30 Room Air 05/08/18 05:08 97.5 20 94 Intake and Output 05/08/18 07:00 Intake Total 2395 ml Output Total 4100 ml Balance -1705 ml Intake Oral 2395 ml Output Urine Total 4100 ml # Voids 2 # Bowel Movements 2 Heart: Regular rate, Normal S1, Normal S2 Extremities: No cyanosis, Normal pulses, Other (chronic edema) General: Alert, Oriented X3, Cooperative, No acute distress Lungs: Clear to auscultation Neuro: Normal speech, Strength at 5/5 X4 ext Psych/Mental Status: Mental status NL, Mood NL Review of Relevant I have reviewed the following items debi (where applicable) has been applied. Labs Laboratory Tests Test 05/06/18 12:03 05/06/18 12:52 05/06/18 16:50 05/06/18 20:20 White Blood Count 8.8 x10^3/uL (4.0-11.0) Red Blood Count 4.40 x10^6/uL (4.30-5.70) Hemoglobin 11.8 g/dL (13.0-17.5) Hematocrit 35.9 % (39.0-53.0) Mean Corpuscular Volume 82 fL (79-100) Mean Corpuscular Hemoglobin 27 pg (25-35) Mean Corpuscular Hemoglobin Concent 33 g/dL (31-37) Red Cell Distribution Width 15.1 % (11.5-14.5) Platelet Count 190 x10^3/uL (140-400) Neutrophils (%) (Auto) 74 % (31-73) Lymphocytes (%) (Auto) 15 % (24-48) Monocytes (%) (Auto) 7 % (0-9) Eosinophils (%) (Auto) 4 % (0-3) Basophils (%) (Auto) 1 % (0-3) Neutrophils # (Auto) 6.5 x10^3uL (1.8-7.7) Lymphocytes # (Auto) 1.3 x10^3/uL (1.0-4.8) Monocytes # (Auto) 0.6 x10^3/uL (0.0-1.1) Eosinophils # (Auto) 0.3 x10^3/uL (0.0-0.7) Basophils # (Auto) 0.1 x10^3/uL (0.0-0.2) Sodium Level 144 mmol/L (136-145) Potassium Level 3.8 mmol/L (3.5-5.1) Chloride Level 105 mmol/L (98-107) Carbon Dioxide Level 31 mmol/L (21-32) Anion Gap 8 (6-14) Blood Urea Nitrogen 19 mg/dL (8-26) Creatinine 2.1 mg/dL (0.7-1.3) Estimated GFR (Cockcroft-Gault) 38.4 BUN/Creatinine Ratio 9 (6-20) Glucose Level 136 mg/dL (70-99) Lactic Acid Level 1.0 mmol/L (0.4-2.0) Calcium Level 8.7 mg/dL (8.5-10.1) Magnesium Level 1.9 mg/dL (1.8-2.4) Total Bilirubin 0.8 mg/dL (0.2-1.0) Aspartate Amino Transf (AST/SGOT) 14 U/L (15-37) Alanine Aminotransferase (ALT/SGPT) 19 U/L (16-63) Alkaline Phosphatase 81 U/L (46-116) Creatine Kinase 252 U/L (39-308) Troponin I Quantitative < 0.017 ng/mL (0-0.055) < 0.017 ng/mL (0-0.055) < 0.017 ng/mL (0-0.055) RK-Vty-D-Type Natriuretic Peptide 685 pg/mL (0-124) Total Protein 7.9 g/dL (6.4-8.2) Albumin 3.8 g/dL (3.4-5.0) Albumin/Globulin Ratio 0.9 (1.0-1.7) Prothrombin Time 11.0 SEC (9.4-11.4) Prothromb Time International Ratio 1.1 (0.9-1.1) Activated Partial Thromboplast Time 27 SEC (23-33) D-Dimer (Do) 1.08 mg/L (0.00-0.50) Test 05/06/18 20:59 05/07/18 05:45 05/07/18 07:34 05/07/18 11:25 Glucose (Fingerstick) 120 mg/dL (70-99) 95 mg/dL (70-99) 122 mg/dL (70-99) Sodium Level 143 mmol/L (136-145) Potassium Level 3.6 mmol/L (3.5-5.1) Chloride Level 105 mmol/L (98-107) Carbon Dioxide Level 31 mmol/L (21-32) Anion Gap 7 (6-14) Blood Urea Nitrogen 18 mg/dL (8-26) Creatinine 2.0 mg/dL (0.7-1.3) Estimated GFR (Cockcroft-Gault) 40.7 Glucose Level 97 mg/dL (70-99) Hemoglobin A1c 6.8 % (4.8-5.6) Calcium Level 8.2 mg/dL (8.5-10.1) Triglycerides Level 60 mg/dL (0-150) Cholesterol Level 122 mg/dL (0-200) LDL Cholesterol, Calculated 69 mg/dL (0-100) VLDL Cholesterol, Calculated 12 mg/dL (0-40) Non-HDL Cholesterol Calculated 81 mg/dL (0-129) HDL Cholesterol 41 mg/dL (40-60) Cholesterol/HDL Ratio 2.0 Test 05/07/18 15:24 05/07/18 17:05 05/07/18 20:27 05/08/18 05:35 Sodium Level 140 mmol/L (136-145) 142 mmol/L (136-145) Potassium Level 3.9 mmol/L (3.5-5.1) 3.8 mmol/L (3.5-5.1) Chloride Level 103 mmol/L (98-107) 104 mmol/L (98-107) Carbon Dioxide Level 31 mmol/L (21-32) 31 mmol/L (21-32) Anion Gap 6 (6-14) 7 (6-14) Blood Urea Nitrogen 19 mg/dL (8-26) 17 mg/dL (8-26) Creatinine 2.0 mg/dL (0.7-1.3) 2.0 mg/dL (0.7-1.3) Estimated GFR (Cockcroft-Gault) 40.7 40.7 Glucose Level 136 mg/dL (70-99) 110 mg/dL (70-99) Calcium Level 8.8 mg/dL (8.5-10.1) 8.8 mg/dL (8.5-10.1) Glucose (Fingerstick) 119 mg/dL (70-99) 130 mg/dL (70-99) Test 05/08/18 07:28 Glucose (Fingerstick) 108 mg/dL (70-99) Microbiology 05/06/18 Blood Culture - Preliminary, Resulted NO GROWTH AFTER 1 DAY... Medications Current Medications Albuterol/ Ipratropium (Duoneb) 3 ml 1X ONCE NEB Last administered on at 12:17; Start 05/06/18 at 12:30; Stop 05/06/18 at 12:31; Status DC Furosemide (Lasix) 40 mg 1X ONCE IVP Last administered on 05/06/18at 13:19; Start 05/06/18 at 13:15; Stop 05/06/18 at 13:16; Status DC Amlodipine Besylate (Norvasc) 10 mg DAILY PO Last administered on 05/08/18 08 :37; Start 05/07/18 at 09:00 Pantoprazole Sodium (Protonix) 40 mg BID PO Last administered on 05/08/18at 08: 37; Start 05/06/18 at 21:00 Potassium Chloride (Klor-Con) 20 meq BID PO Last administered on 05/08/18at 08: 37; Start 05/06/18 at 21:00 Atorvastatin Calcium (Lipitor) 40 mg QHS PO Last administered on 05/06/18at 21: 01; Start 05/06/18 at 21:00; Stop 05/07/18 at 12:20; Status DC Atorvastatin Calcium (Lipitor) 80 mg QHS PO Last administered on 05/07/18at 21: 36; Start 05/07/18 at 21:00 Heparin Sodium (Porcine) (Heparin Sq) 5,000 unit Q8HRS SQ Last administered on 05/08/18 05:28; Start 05/07/18 at 14:30 Active Scripts Active Reported Amlodipine Besylate 10 Mg Tablet 1 Tab PO DAILY Omeprazole 40 Mg Capsule.dr 40 Mg PO BID Lasix (Furosemide) 40 Mg Tablet 1 Tab PO DAILY Potassium Chloride 10 Meq Tablet.er 20 Meq PO BID Simvastatin 80 Mg Tablet 1 Tab PO QHS Vitals/I & O Vital Sign - Last 24 Hours 05/07/18 05/07/18 05/07/18 05/07/18 10:32 14:33 19:30 19:40 Temp 98.0 98.1 98.2 Pulse 84 89 82 Resp 20 20 20 B/P (MAP) 159/73 (101) 122/73 (89) 164/84 (110) Pulse Ox 96 94 97 O2 Delivery Room Air Room Air Room Air Room Air 05/07/18 05/08/18 05/08/18 05/08/18 22:52 05:08 08:30 08:37 Temp 98.1 97.5 Pulse 88 86 86 Resp 20 20 B/P (MAP) 133/74 (93) 137/79 (98) 137/79 Pulse Ox 95 94 O2 Delivery Room Air Room Air Room Air Intake and Output 05/07/18 05/07/18 05/08/18 15:00 23:00 07:00 Intake Total 880 ml 1215 ml 300 ml Output Total 850 ml 2000 ml 1250 ml Balance 30 ml -785 ml -950 ml BLANE CRUZ CANDLE CUTTER May 08, 2018 09:45
[2018-05-08 11:12] VITALS: BP 138/69
[2018-05-08 15:28] VITALS: BP 159/84
--- NOTE | 2018-05-09 03:31 | DS ---
DATE OF DISCHARGE: 05/08/2018 HOSPITAL COURSE: The patient is a 67-year-old -[place] male patient, who was admitted with increasing shortness of breath that started last Saturday evening and continued until Saturday and he came on Saturday morning. He complained of cough with scanty white sputum, marked swelling of both lower extremities that has been going on for almost 6 months. He did gain some weight. He said that his weight in his office about 6 months ago was 375 and today was 385. He was extensively investigated in the Emergency Room and was found to have impaired kidney function with a creatinine of 2.1, slightly elevated beta-natriuretic peptide, high D-dimer and mild normochromic normocytic anemia. His chest x-ray showed mild cardiomegaly, mild prominent interstitial lung markings identified in bilateral lungs. He was treated with IV Lasix. He had 3 sets of cardiac enzymes that ruled out myocardial infarction. He has had Doppler ultrasound of both lower extremities and the lung perfusion and ventilation scan was interpreted as normal and low probability. He has had an echocardiogram, which showed that his left ventricular systolic function is normal with ejection fraction of 55%-60% with normal left ventricular segmental wall motion. There is mild mitral regurgitation, no significant pericardial effusion. His kidney function has slightly worsened, but has been stable and the patient remained stable, had no further episodes of shortness of breath and a decision was made to discharge him home to follow up as an outpatient with the cardiology team for outpatient stress test and follow up with them as an outpatient. PHYSICAL EXAMINATION: GENERAL: When I saw him this afternoon, he was sitting comfortably in his chair, in no apparent respiratory distress. Slightly pale, but no jaundice, cyanosis, or thyromegaly. No jugular venous distension. No limb edema. VITAL SIGNS: His heart rate was 76, blood pressure was 159/84, temperature was 98.3, respiratory rate 20, and oxygen saturation was 96%. HEAD, EYES, EARS, NOSE AND THROAT: Normocephalic, atraumatic. NECK: Supple. HEART: Showed normal first and second heart sounds with no gallop, rub or murmur. CHEST: Clear to auscultation. No crepitation or rhonchi. ABDOMEN: Distended, soft, nontender. NEUROLOGIC: He is awake, alert, responding appropriately with cranial nerves intact. EXTREMITIES: He moves extremities without difficulty, ambulates without assistance or assistive devices. LABORATORY DATA: This morning showed a serum sodium of 142, potassium 3.8, chloride 104, bicarbonate 31, anion gap of 7, BUN 17, creatinine 2, estimated GFR was 40 mL per minute, his glucose was 110. Calcium was 8.8. White cell count was 8800, hemoglobin 11.8, hematocrit 36, MCV 82 and platelet count 290,000. His prothrombin time was 11, INR 1.1, aPTT was 27. DISCHARGE MEDICATIONS: He was discharged home to continue on his amlodipine 10 mg once a day, furosemide 40 mg once a day, omeprazole 40 mg p.o. b.i.d., potassium chloride 20 mEq twice a day and simvastatin 80 mg at bedtime. FINAL DISCHARGE DIAGNOSES: 1. Acute on chronic diastolic heart failure, well compensated. His left ventricular systolic function is normal with normal ejection fraction and normal wall motion. 2. Hypertension, much improved on amlodipine. 3. Chronic kidney disease, stage 3, stable. 4. Hyperlipidemia, well controlled on simvastatin. 5. Elevated D-dimer with negative venous Doppler ultrasound and V/Q scan. The patient will have a nuclear stress test done as an outpatient and should follow with the Cardiology team as an outpatient. LEONILA COLMENARES MD DR: TINY/gaurav JOB#: [id number] / [id number]
== END 2018-05-08 18:27 | disposition home or self-care (01) | DRG 291 ==
LOC: ER 11:46 → 1 SOUTH 13:15
PROVIDERS: ADMIT Internal Medicine; ATTEND Internal Medicine
DX: I13.0 Hypertensive heart and chronic kidney disease with heart failure and stage 1 through stage 4 chronic kidney disease, or unspecified chronic kidney disease (principal); I50.33 Acute on chronic diastolic (congestive) heart failure; Z68.43 Body mass index [BMI] 50.0-59.9, adult; E66.01 Morbid (severe) obesity due to excess calories; E11.42 Type 2 diabetes mellitus with diabetic polyneuropathy; E78.5 Hyperlipidemia, unspecified; E11.22 Type 2 diabetes mellitus with diabetic chronic kidney disease; R79.1 Abnormal coagulation profile; N18.3 Chronic kidney disease, stage 3 (moderate); J45.909 Unspecified asthma, uncomplicated; I89.0 Lymphedema, not elsewhere classified; N40.0 Benign prostatic hyperplasia without lower urinary tract symptoms; I34.0 Nonrheumatic mitral (valve) insufficiency; D64.9 Anemia, unspecified; Z82.49 Family history of ischemic heart disease and other diseases of the circulatory system; Z80.42 Family history of malignant neoplasm of prostate; Z83.3 Family history of diabetes mellitus; Z87.891 Personal history of nicotine dependence; Z90.49 Acquired absence of other specified parts of digestive tract; Z79.899 Other long term (current) drug therapy
CPT/HCPCS: 36415; 71046; 76770; 78582; 80048; 80053; 80061; 82550; 82947; 83036; 83605; 83735; 83880; 84484; 85025; 85379; 85610; 85730; 87040; 93005; 93306; 93970; 94640; 96374; A9540; A9558; J1940; J7620; 99285-25

== ENCOUNTER → 2018-05-14 | Outpatient (CLI) | payer OTHER ==
[2018-05-08 15:28] VITALS: BP 159/84
[~2018-05-14] MED LIST changes: +AMLO10TA6 PO; +FURO-68 PO; +OMEP40CA5 PO; +POTA10TA10 PO; +SIMV80TA7 PO
--- NOTE | 2018-05-14 12:53 | RAD ---
Scrotal ultrasound, 05/14/2018: HISTORY: Left testicular swelling The right testicle measures 4 x 2.2 x 2.5 cm while the left testicle measures 4.0 x 2.4 x 2.0 cm. No testicular mass is seen. There is a tiny nonspecific calcification in the right testicle. There is symmetric blood flow in both testicles. A 5 mm cyst is present in the right epididymis. The left epididymis is unremarkable. There are moderate size bilateral hydroceles, left greater than right. IMPRESSION: 1. No significant testicular abnormality is detected. 2. Moderate sized bilateral hydroceles, left greater than right. 3. Small right epididymal cyst. Electronically signed by: Bran Bowden MD (05/14/2018 12:50 PM) [facility]
== END | disposition home or self-care (01) ==
LOC: RAD 11:50
PROVIDERS: ATTEND Neuromusculoskeletal Medicine & OMM
DX: N43.2 Other hydrocele (principal); N50.3 Cyst of epididymis
CPT/HCPCS: 76870

== ENCOUNTER → 2018-06-03 | Outpatient (CLI) | payer OTHER ==
[2018-05-08 15:28] VITALS: BP 159/84
[2018-06-03 10:46] LABS: CALCIUM 8.8 mg/dL (8.5-10.1); CREATININE 2.8 mg/dL (0.7-1.3); GFR 27.6; POTASSIUM 4.7 mmol/L (3.5-5.1)
--- NOTE | 2018-06-03 13:10 | RAD ---
MR#: [id number] Date of Study: 06/03/2018 Ordering Physician: MALVIN LUZ, Referring Physician: MALVIN LUZ, Tech: Pamela Shepard RDMS, T APPROVED REPORT Right Lower Extremity Venous Study for REFLUX Patient Location: OUT-PATIENT Indications Lower Extremity Edema: Bilateral Technically very difficult study. The CFV, SFV and popliteal vein appear to be compressible. The below knee veins are not well visualiz ed. Risk Factors Obesity Vein Imaging (Right) CFV (R): Compressible SFJ (R): Compressible FEM (R): Compressible POP (R): Compressible Doppler Evaluation (Right) CFV (R): Spontaneous POP (R):Spontaneous Critical Notification Critical Value: No <Conclusion> Grossly, no clear evidence of DVT in the RLE Signed by : Malvin Luz, Electronically Approved : 06/03/2018 13:09:35
--- NOTE | 2018-06-03 13:14 | RAD ---
MR#: [id number] Date of Study: 06/03/2018 Ordering Physician: MALVIN LUZ, Referring Physician: MALVIN LUZ, Tech: Pamela Shepard RDMS, [place] APPROVED REPORT Patient Location : OUT-PATIENT Indications Lower Extremity Edema : Bilateral Varicose Veins Skin Changes SKIN THICKENING CHANGES FROM OBESITY -Cano scale images of the SFJ and the greater and lesser saphenous veins on the right side reveals si gnificant soft tissue edema. There is mild reflux noted of up to 1.5 seconds throughout the GSV and L SV. Risk Factors Obesity MORBID OBESITY Deep System Deep Venous Thrombosis present : No Greater Saphenous Veins (GSV) Significant venous relux noted in the RIGHT GSV at the following levels : Superficial Femoral Junctio n Accessory Veins Right Anterior Accessory Vein : Present : Yes Reflux : No Leftt Anterior Accessory Vein : Present : No Right Posterior Accessory Vein : Present : No Left Posterior Accessory Vein : Present : No Perforators Thigh Perforators Calf Perforators Right: cm up from medial heel 20cm back from the anterior border of tibia 15 diameter mm. Critical Notification Critical Value: No <Conclusion> Positive for reflux in the LSV and GSV Signed by : Malvin Luz, Electronically Approved : 06/03/2018 13:13:17
== END | disposition home or self-care (01) ==
LOC: US 09:44
PROVIDERS: ATTEND Internal Medicine Cardiovascular Disease
DX: R60.0 Localized edema (principal); I83.93 Asymptomatic varicose veins of bilateral lower extremities; E66.01 Morbid (severe) obesity due to excess calories; I89.0 Lymphedema, not elsewhere classified; E78.00 Pure hypercholesterolemia, unspecified
CPT/HCPCS: 36415; 80048; 83880; 93970; 93971

== ENCOUNTER → 2018-09-01 | Outpatient (CLI) | payer OTHER ==
[~2018-09-01] MED LIST changes: +ALBU2.5V14 NEB; -AMLO10TA6 PO; +AMLO10TA8 PO; +AMOX1TAB10 PO; +DOXY100C2 PO; +IPRA4AER INH; +PIOG30TA41 PO; +PRED50TA PO; +SIMV80TA17 PO; -SIMV80TA7 PO; +VANC2PLA IV
[2018-09-01 11:09] LABS: HEMOGLOBIN 11.7 g/dL (13.0-17.5)
[2018-09-01 11:17] LABS: ALBUMIN 3.6 g/dL (3.4-5.0); CALCIUM 8.3 mg/dL (8.5-10.1); GFR 40.7; PHOSPHORUS 3.4 mg/dL (2.6-4.7); POTASSIUM 4.3 mmol/L (3.5-5.1)
[2018-09-01 11:55] LABS: CLARITY,URINE HAZY; COLOR,URINE YELLOW
[2018-09-01 11:56] LABS: BILIRUBIN,URINE NEG (NEG); GLUCOSE,URINE NEG (NEG)
[2018-09-01 11:57] LABS: BACTERIA,URINE 0 /HPF (0-FEW); NITRITE,URINE NEG (NEG); RBC,URINE OCC /HPF (0-2); UROBILINOGEN,URINE 0.2 mg/dL (0.2 mg/dL); WBC,URINE RARE /HPF (0-4)
[2018-09-01 11:58] LABS: SQUAMOUS EPITHELIAL CELL,UR FEW /LPF
== END | disposition home or self-care (01) ==
LOC: LAB 10:02
PROVIDERS: ATTEND Internal Medicine Nephrology
DX: E11.22 Type 2 diabetes mellitus with diabetic chronic kidney disease (principal); I13.0 Hypertensive heart and chronic kidney disease with heart failure and stage 1 through stage 4 chronic kidney disease, or unspecified chronic kidney disease; N18.9 Chronic kidney disease, unspecified; I50.9 Heart failure, unspecified
CPT/HCPCS: 36415; 80069; 81001; 85014; 85018

== ENCOUNTER 2018-09-22 17:48 | Inpatient (IN) | payer OTHER ==
[~2018-09-22] VITALS: Ht 172.7 cm; Wt 181.5 kg
[~2018-09-22 17:48] MED LIST changes: -ALBU2.5V14 NEB; -AMOX1TAB10 PO; -DOXY100C2 PO; -IPRA4AER INH; -PIOG30TA41 PO; -PRED50TA PO; -VANC2PLA IV
[2018-09-22] MEDS ORDERED: ceFAZolin SODIUM 2 GM in IV DEXTROSE 5% 50 ML IV ONE (19:00)
[2018-09-22] MEDS ORDERED: ceFAZolin SODIUM 1 GM VIAL ONE (19:14)
[2018-09-22] MEDS ORDERED: ACETAMINOPHEN 500 MG TABLET PO ONE (19:15)
[2018-09-22] MEDS ORDERED: IV DEXTROSE 5% 50 ML ONE (19:15)
[2018-09-22 19:34] LABS: BASO % 0 % (0-3); EOS % 0 % (0-3); HEMATOCRIT 35.8 % (39.0-53.0); HEMOGLOBIN 11.6 g/dL (13.0-17.5); LYMPH # 0.6 x10^3/uL (1.0-4.8); LYMPH % 5 % (24-48); MEAN CORPUSCULAR HEMOGLOBIN 27 pg (25-35); MEAN CORPUSCULAR HGB CONC 33 g/dL (31-37); MEAN CORPUSCULAR VOLUME 83 fL (79-100); MONO # 0.6 x10^3/uL (0.0-1.1); MONO % 6 % (0-9); NEUT # 9.8 x10^3uL (1.8-7.7); NEUT % 89 % (31-73); PLATELET COUNT 146 x10^3/uL (140-400); RED BLOOD COUNT 4.33 x10^6/uL (4.30-5.70)
[2018-09-22 19:51] LABS: ALBUMIN 3.6 g/dL (3.4-5.0); ALBUMIN/GLOBULIN RATIO 0.8 (1.0-1.7); CALCIUM 8.8 mg/dL (8.5-10.1); CREATININE 2.1 mg/dL (0.7-1.3); GFR 38.4; TOTAL BILIRUBIN 0.8 mg/dL (0.2-1.0); TOTAL PROTEIN 7.9 g/dL (6.4-8.2)
--- NOTE | 2018-09-22 20:30 | ED.ADGEN ---
Past History Past Medical History: Diabetes, Hypertension, Renal Failure Past Surgical History: Appendectomy, Cholecystectomy, Other Alcohol Use: None Drug Use: None Adult General Chief Complaint Chief Complaint leg redness HPI HPI 67 years old male presented to the emergency department with left leg swollen tender warm to touch red noticed that for the past week and a spitting got worse redness although with his knee Review of Systems Review of Systems Constitutional: + fever or chills [] Eyes: Denies change in visual acuity, redness, or eye pain [] HENT: Denies nasal congestion or sore throat [] Respiratory: Denies cough or shortness of breath [] Cardiovascular: No additional information not addressed in HPI [] GI: Denies abdominal pain, nausea, vomiting, bloody stools or diarrhea [] : Denies dysuria or hematuria [] Musculoskeletal: Denies back pain or joint pain [] Integument: skin is red warm Neurologic: Denies headache, focal weakness or sensory changes [] Endocrine: Denies polyuria or polydipsia [] All other systems were reviewed and found to be within normal limits, except as documented in this note. Current Medications Current Medications Current Medications Medications (Trade) Dose Ordered Sig/Jax Start Time Stop Time Status Last Admin Dose Admin Acetaminophen (Tylenol) 1,000 mg 1X ONCE 09/22/18 19:15 09/22/18 19:17 DC 09/22/18 19:30 1,000 MG Cefazolin Sodium (Ancef) 1 gm STK-MED ONCE 09/22/18 19:14 09/22/18 19:15 DC Cefazolin Sodium 2 gm/Dextrose 50 ml @ 100 mls/hr 1X ONCE 09/22/18 19:00 09/22/18 19:29 DC 09/22/18 19:00 100 MLS/HR Dextrose 50 ml @ As Directed STK-MED ONCE 09/22/18 19:15 09/22/18 19:16 DC Allergies Allergies Allergies Coded Allergies Type Severity Reaction Last Updated Verified No Known Drug Allergies 06/29/14 No Physical Exam Physical Exam Constitutional: Well developed, well nourished, no acute distress, non-toxic appearance. [] HENT: Normocephalic, atraumatic, bilateral external ears normal, oropharynx moist, no oral exudates, nose normal. [] Eyes: PERRLA, EOMI, conjunctiva normal, no discharge. [] Neck: Normal range of motion, no tenderness, supple, no stridor. [] Cardiovascular:Heart rate regular rhythm, no murmur [] Lungs & Thorax: Bilateral breath sounds clear to auscultation [] Abdomen: Bowel sounds normal, soft, no tenderness, no masses, no pulsatile masses. [] Skin: Warm, dry, + erythema, Back: No tenderness, no CVA tenderness. [] Extremities: No tenderness, no cyanosis, no clubbing, ROM intact, no edema. [] Neurologic: Alert and oriented X 3, normal motor function, normal sensory function, no focal deficits noted. [] Psychologic: Affect normal, judgement normal, mood normal. [] Current Patient Data Vital Signs Vital Signs Date Time Temp Pulse Resp B/P (MAP) Pulse Ox O2 Delivery O2 Flow Rate FiO2 09/22/18 18:20 98.2 92 22 96 Room Air Lab Results Laboratory Tests Test 09/22/18 19:05 White Blood Count 11.0 x10^3/uL (4.0-11.0) Red Blood Count 4.33 x10^6/uL (4.30-5.70) Hemoglobin 11.6 g/dL (13.0-17.5) L Hematocrit 35.8 % (39.0-53.0) L Mean Corpuscular Volume 83 fL (79-100) Mean Corpuscular Hemoglobin 27 pg (25-35) Mean Corpuscular Hemoglobin Concent 33 g/dL (31-37) Red Cell Distribution Width 16.0 % (11.5-14.5) H Platelet Count 146 x10^3/uL (140-400) Neutrophils (%) (Auto) 89 % (31-73) H Lymphocytes (%) (Auto) 5 % (24-48) L Monocytes (%) (Auto) 6 % (0-9) Eosinophils (%) (Auto) 0 % (0-3) Basophils (%) (Auto) 0 % (0-3) Neutrophils # (Auto) 9.8 x10^3uL (1.8-7.7) H Lymphocytes # (Auto) 0.6 x10^3/uL (1.0-4.8) L Monocytes # (Auto) 0.6 x10^3/uL (0.0-1.1) Eosinophils # (Auto) 0.0 x10^3/uL (0.0-0.7) Basophils # (Auto) 0.0 x10^3/uL (0.0-0.2) Sodium Level 140 mmol/L (136-145) Potassium Level 4.0 mmol/L (3.5-5.1) Chloride Level 102 mmol/L (98-107) Carbon Dioxide Level 30 mmol/L (21-32) Anion Gap 8 (6-14) Blood Urea Nitrogen 30 mg/dL (8-26) H Creatinine 2.1 mg/dL (0.7-1.3) H Estimated GFR (Cockcroft-Gault) 38.4 BUN/Creatinine Ratio 14 (6-20) Glucose Level 120 mg/dL (70-99) H Calcium Level 8.8 mg/dL (8.5-10.1) Total Bilirubin 0.8 mg/dL (0.2-1.0) Aspartate Amino Transferase (AST) 19 U/L (15-37) Alanine Aminotransferase (ALT) 16 U/L (16-63) Alkaline Phosphatase 67 U/L (46-116) Total Protein 7.9 g/dL (6.4-8.2) Albumin 3.6 g/dL (3.4-5.0) Albumin/Globulin Ratio 0.8 (1.0-1.7) L EKG EKG [] Radiology/Procedures Radiology/Procedures [] Course & Med Decision Making Course & Med Decision Making Pertinent Labs and Imaging studies reviewed. (See chart for details) [] Final Impression Final Impression [] Problems: (1) Cellulitis Qualifiers: Qualified Codes: L03.116 - Cellulitis of left lower limb Dragon Disclaimer Dragon Disclaimer This electronic medical record was generated, in whole or in part, using a voice recognition dictation system. JOJO MEDINA MD Sep 22, 2018 20:30
[2018-09-22] MEDS ORDERED: ONDANSETRON PF 4 MG/2 ML VIAL. IV PRN (20:45)
[2018-09-22] MEDS ORDERED: MORPHINE SULFATE 4 MG/ML DISP.SYRIN. IV PRN (20:45)
[2018-09-22] MEDS ORDERED: VANCOMYCIN PER PHARMACY MC PRN (22:45)
[2018-09-22 22:46] VITALS: BP 154/75
[2018-09-22] MEDS ORDERED: POTA10TA10 PO (22:52)
[2018-09-22] MEDS ORDERED: PIOG30TA41 PO (22:52)
[2018-09-22] MEDS ORDERED: VANCOMYCIN 2 GM in IV NORMAL SALINE 500ML 500 ML IV ONE (23:00)
--- NOTE | 2018-09-22 23:11 | RAD ---
CHEST AP ONLY History: Fever Comparison: 05/06/2018 Findings: Single view of the chest is submitted. Pericardial cardiac silhouette is again enlarged. There is no pneumothorax or significant pleural fluid. Perihilar lung markings greater on the right are unchanged. There is no lobar consolidation. Impression: 1. No lobar consolidation is identified. There is enlargement of the pericardial cardiac silhouette. Electronically signed by: Tiago Arboleda MD (09/22/2018 11:08 PM) [facility]
[2018-09-23 04:15] LABS: BACTERIA,URINE 0 /HPF (0-FEW); BILIRUBIN,URINE NEG (NEG); CLARITY,URINE CLEAR; COLOR,URINE YELLOW; GLUCOSE,URINE NEG (NEG); NITRITE,URINE NEG (NEG); RBC,URINE OCC /HPF (0-2); SQUAMOUS EPITHELIAL CELL,UR OCC /LPF; UROBILINOGEN,URINE 0.2 mg/dL (0.2 mg/dL); WBC,URINE OCC /HPF (0-4)
[2018-09-23 05:36] VITALS: BP 162/73
[2018-09-23 06:57] LABS: CALCIUM 8.3 mg/dL (8.5-10.1); CREATININE 2.1 mg/dL (0.7-1.3); GFR 38.4; POTASSIUM 3.5 mmol/L (3.5-5.1)
[2018-09-23 07:00] LABS: BASO % 0 % (0-3); EOS # 0.1 x10^3/uL (0.0-0.7); EOS % 1 % (0-3); HEMATOCRIT 32.7 % (39.0-53.0); HEMOGLOBIN 10.7 g/dL (13.0-17.5); LYMPH # 0.6 x10^3/uL (1.0-4.8); LYMPH % 7 % (24-48); MEAN CORPUSCULAR HEMOGLOBIN 27 pg (25-35); MEAN CORPUSCULAR HGB CONC 33 g/dL (31-37); MEAN CORPUSCULAR VOLUME 83 fL (79-100); MONO # 0.7 x10^3/uL (0.0-1.1); MONO % 9 % (0-9); NEUT # 6.3 x10^3uL (1.8-7.7); NEUT % 82 % (31-73); PLATELET COUNT 119 x10^3/uL (140-400); RED BLOOD COUNT 3.95 x10^6/uL (4.30-5.70); RED CELL DISTRIBUTION WIDTH 15.9 % (11.5-14.5); WHITE BLOOD COUNT 7.7 x10^3/uL (4.0-11.0)
[2018-09-23] MEDS: PANTOPRAZOLE 40 MG TABLET. PO SCH ×2 (08:42→17:17)
[2018-09-23] MEDS: amLODIPine BESYLATE 10 MG TABLET PO SCH (08:43)
[2018-09-23] MEDS: PIOGLITAZONE 15 MG TABLET. PO SCH (08:43)
[2018-09-23] MEDS: POTASSIUM CHLORIDE 10 MEQ TABLET.ER. PO SCH ×2 (08:43→21:02)
[2018-09-23] MEDS: FUROSEMIDE 40 MG TABLET PO SCH (08:43)
[2018-09-23] MEDS: LACTOBACILLUS RHAMNOSUS GG 1 CAPSULE. PO SCH ×2 (08:46→21:02)
[2018-09-23 11:52] VITALS: BP 154/66
[2018-09-23 15:52] VITALS: BP 161/66
--- NOTE | 2018-09-23 16:45 | HP ---
ADMIT DATE: 09/22/2018 HISTORY OF PRESENT ILLNESS: The patient is a 67-year-old -[place] male patient, who presented to the Emergency Room from his primary care office with left leg swelling, tenderness and warmth to touch and it was noticed in the past week and was getting worse, was evaluated by his primary care physician who sent him to the Emergency Room for further evaluation and treatment. He was diagnosed with a left lower extremity cellulitis, was admitted for IV antibiotic. The patient did complain of pain, but denied any chills, rigors or fever. Denied any trauma or fall. PAST MEDICAL HISTORY: Significant for type 2 diabetes mellitus, hypertension, hyperlipidemia, chronic kidney disease. PAST SURGICAL HISTORY: Significant for nose surgery, cholecystectomy, appendectomy, bilateral inguinal hernia repair, and bilateral carpal tunnel release. ALLERGIES: He has no known drug allergies. MEDICATIONS: He is currently on following medications: He is on simvastatin 80 mg at bedtime, amlodipine besylate 10 mg daily. He is on furosemide 40 mg daily, potassium chloride 10 mEq twice a day, omeprazole 40 mg twice a day and pioglitazone 30 mg daily. FAMILY HISTORY: He has 1 older brother who is alive and has diabetes and one younger sister who is also healthy. His father is still alive at age of 96 and diabetes mellitus. Mother is alive at the age of 88. SOCIAL HISTORY: He is , has 2 sons, one of them lives with him. He quit smoking in 1979. Quit drinking alcohol about 14 years ago. He is retired from the [employer] in 2017. REVIEW OF SYSTEMS: The patient denied any blurring of vision, cataract, glaucoma or macular degeneration. Denied any earache, tinnitus or sensorineural deafness. Denied any nosebleeds, stuffy nose or postnasal drip. Denied any sore throat, sore tongue, toothache, hoarseness of voice or difficulty swallowing. Denied any nausea, vomiting, diarrhea or constipation. Denied any hematemesis, melena or hematochezia. Denied any dysuria, frequency or hematuria. Denied any chest pain, shortness of breath, orthopnea, or paroxysmal nocturnal dyspnea. Denied any cough, phlegm or hemoptysis. Denied any chills, rigors or fever. PHYSICAL EXAMINATION: GENERAL: On arrival to the Emergency Room, he looked well and was clearly in no apparent respiratory distress. No pallor, jaundice, cyanosis or thyromegaly. No jugular venous distention. No limb edema. VITAL SIGNS: His heart rate was 92, blood pressure 150/75, temperature was 98.2, respiratory rate was 22 and oxygen saturation was 96%. HEAD, EYES, EARS, NOSE, AND THROAT: Showed normocephalic, atraumatic. NECK: Supple. HEART: Showed normal first and second heart sounds with no gallop, rub or murmur. CHEST: Clear to auscultation. No crepitation or rhonchi. ABDOMEN: Distended, soft, nontender. No guarding or rigidity. No organomegaly. All hernial orifices intact. Bowel sounds normal. NEUROLOGIC: He was awake, alert, responding appropriately. All cranial nerves intact. EXTREMITIES: He moves extremities without difficulty. According to him, he ambulates without assistance or assistive devices. LABORATORY DATA: His lab work on admission showed a white cell count of 11,000, hemoglobin 11.6, hematocrit 35.8, MCV 83 and platelet count of 146,000. His chemistry showed a serum sodium 140, potassium 4, chloride 102, bicarbonate 30, anion gap of 6, BUN 30, creatinine 2.1, estimated GFR was 36 mL per minute. His glucose was 120, calcium was 8.8. Total bilirubin, AST, ALT, alkaline phosphatase were normal. Total protein was 7.9, albumin 3.6. Urinalysis was essentially unremarkable. He apparently has had a chest x-ray, which showed no lobar consolidation identified. There is enlargement of the pericardial cardiac silhouette. ASSESSMENT AND PLAN: In summary, this is a 67-year-old -[place] male patient, who came in with marked swelling, redness and tenderness of his left lower extremity, was diagnosed with left lower extremity cellulitis. He was started on IV vancomycin. He has multiple other medical problems including type 2 diabetes mellitus that seemed to be well controlled, hypertension, hyperlipidemia and chronic kidney disease. My plan is to continue with IV vancomycin. We need obviously to do deep venous thrombosis prophylaxis. Continue with all his medication and we will follow him closely and if he requires vancomycin as determined by the pharmacist only once a day, we might be able to discharge him home to continue treatment as an outpatient. LEONILA COLMENARES MD DR: TINY/gaurav JOB#: [id number] / [id number]
[2018-09-23 19:02] VITALS: BP 185/76
--- NOTE | 2018-09-23 20:22 | PN ---
DATE: 09/23/2018 SUBJECTIVE: The patient is resting, slightly propped up in bed, in no apparent respiratory distress. He is awake, alert. On questioning him, he denied any complaint, in particular denied any pain, chills, rigors or fever. PHYSICAL EXAMINATION: GENERAL: When I examined him this afternoon, he looked well and was clearly in no apparent respiratory distress. No pallor, jaundice, cyanosis, or thyromegaly. No jugular venous distension. No lower limb edema. VITAL SIGNS: His heart rate was 81, blood pressure 154/66, temperature was 98.6, respiratory rate was 20, and oxygen saturation was 94%. The rest of clinical examination is stable. EXTREMITIES: His left lower extremity is swollen and more hot to touch and tender compared to the right leg. His intake was 800, output was 400. LABORATORY DATA: His lab work this morning showed a white cell count is down to 7700, hemoglobin 10.7, hematocrit 33, MCV 83, and platelet count of 119,000. His chemistry showed a serum sodium 142, potassium 3.5, chloride 105, bicarbonate 30, anion gap of 7, BUN 31, creatinine 2.1, estimated GFR was 38 mL per minute, his glucose was 95, calcium was 8.3. ASSESSMENT: 1. This is a 67-year-old male patient with left lower extremity cellulitis, which he is currently on IV vancomycin. 2. Type 2 diabetes mellitus that seems to be reasonably controlled. 3. Hypertension, suboptimally controlled. 4. Hyperlipidemia for which he is on atorvastatin, morbid obesity, questionable obstructive sleep apnea. PLAN: My plan is to continue the IV antibiotic for the time being. We will arrange for him to have a midline placed and he can be discharged perhaps tomorrow or after tomorrow to come as an outpatient to finish treatment. LEONILA COLMENARES MD DR: TINY/gaurav JOB#: [id number] / [id number]
[2018-09-23] MEDS: ATORVASTATIN CALCIUM 20 MG TABLET PO SCH (21:02)
[2018-09-23 22:55] VITALS: BP 164/80
[2018-09-23] MEDS: VANCOMYCIN 2 GM in IV NORMAL SALINE 500ML 500 ML IV SCH (22:59)
[2018-09-24 05:11] VITALS: BP 158/77
[2018-09-24 06:59] LABS: HEMATOCRIT 32.9 % (39.0-53.0); HEMOGLOBIN 10.8 g/dL (13.0-17.5); RED BLOOD COUNT 4.01 x10^6/uL (4.30-5.70); RED CELL DISTRIBUTION WIDTH 15.8 % (11.5-14.5); WHITE BLOOD COUNT 7.3 x10^3/uL (4.0-11.0)
[2018-09-24 07:06] LABS: CALCIUM 8.1 mg/dL (8.5-10.1); CREATININE 2.1 mg/dL (0.7-1.3); GFR 38.4; POTASSIUM 3.3 mmol/L (3.5-5.1)
[2018-09-24] MEDS: PANTOPRAZOLE 40 MG TABLET. PO SCH ×2 (08:11→16:30)
[2018-09-24] MEDS: LACTOBACILLUS RHAMNOSUS GG 1 CAPSULE. PO SCH ×2 (08:11→20:05)
[2018-09-24] MEDS: amLODIPine BESYLATE 10 MG TABLET PO SCH (08:11)
[2018-09-24] MEDS: PIOGLITAZONE 15 MG TABLET. PO SCH (08:12)
[2018-09-24] MEDS: POTASSIUM CHLORIDE 10 MEQ TABLET.ER. PO SCH ×2 (08:12→20:06)
[2018-09-24] MEDS: FUROSEMIDE 40 MG TABLET PO SCH (08:12)
[2018-09-24 11:04] VITALS: BP 175/75
[2018-09-24 14:41] VITALS: BP 116/70
[2018-09-24 19:12] VITALS: BP 134/74
[2018-09-24] MEDS: ATORVASTATIN CALCIUM 20 MG TABLET PO SCH (20:06)
[2018-09-24 22:08] VITALS: BP 164/78
[2018-09-24 22:25] LABS: VANC TR 13.7 mcg/mL (10.0-20.0)
[2018-09-24] MEDS: VANCOMYCIN 2 GM in IV NORMAL SALINE 500ML 500 ML IV SCH (22:45)
--- NOTE | 2018-09-25 00:05 | PN ---
DATE: 09/24/2018 SUBJECTIVE: The patient is sitting comfortably in his chair, in no apparent distress. On questioning him, all the pain has mostly resolved in his left lower extremity as well as redness, although his legs continued to be swollen, has been up and about, was able to walk to the bathroom and back. Denied any fever, chills or rigors. PHYSICAL EXAMINATION: GENERAL: When I examined him, he looked well and was clearly in no apparent respiratory distress. VITAL SIGNS: His heart rate was 81, blood pressure is 116/70, temperature was 98, respiratory rate 20, and oxygen saturation was 96% on room air. HEAD, EYES, EARS, NOSE AND THROAT: Normocephalic, atraumatic. NECK: Supple. HEART: Showed normal first and second heart sounds. No gallop, rub or murmur. CHEST: Clear to auscultation. No crepitation or rhonchi. ABDOMEN: Distended, soft, nontender. No guarding or rigidity. No organomegaly. All hernial orifice intact. Bowel sounds normal. NEUROLOGIC: He is awake, alert, responding appropriately. Extraocular movements intact. He moves extremities without difficulty. He is able to ambulate without assistance or assistive devices. His intake was 3000, output was 2200. LABORATORY DATA: As of this morning, his serum sodium was 140, potassium 3.3, chloride 104, bicarbonate 29, anion gap of 7, BUN 28, creatinine 2.1, estimated GFR was 58 mL per minute. His glucose was 96, calcium was 8.1. His white cell count is 7300, hemoglobin 11, hematocrit 33, MCV 82, and platelet count of 123,000. ASSESSMENT: 1. Left lower extremity cellulitis, which he is on IV vancomycin, seems to be responding clinically. 2. Type 2 diabetes mellitus, seems to be reasonably controlled. 3. Hypertension. 4. Hyperlipidemia. 5. Morbid obesity with questionable obstructive sleep apnea. PLAN: My plan is to arrange for him to have a midline. The patient can be discharged and can be treated as an outpatient with IV vancomycin. LEONILA COLMENARES MD DR: TINY/gaurav JOB#: [id number] / [id number]
[2018-09-25 05:13] VITALS: BP 151/78
[2018-09-25] MEDS: FUROSEMIDE 40 MG TABLET PO SCH (08:30)
[2018-09-25] MEDS: amLODIPine BESYLATE 10 MG TABLET PO SCH (08:31)
[2018-09-25] MEDS: PANTOPRAZOLE 40 MG TABLET. PO SCH (08:31)
[2018-09-25] MEDS: LACTOBACILLUS RHAMNOSUS GG 1 CAPSULE. PO SCH (08:31)
[2018-09-25] MEDS: POTASSIUM CHLORIDE 10 MEQ TABLET.ER. PO SCH (08:31)
[2018-09-25] MEDS: PIOGLITAZONE 15 MG TABLET. PO SCH (08:32)
[2018-09-25 10:52] VITALS: BP 162/67
[2018-09-25] MEDS: VANCOMYCIN 2 GM in IV NORMAL SALINE 500ML 500 ML IV SCH (14:00)
--- NOTE | 2018-09-25 14:34 | DS ---
DATE OF DISCHARGE: HOSPITAL COURSE: The patient is a 67-year-old -[place] male patient who was admitted with pain, redness and swelling of his left lower extremity. He was diagnosed with a left lower extremity cellulitis, started on IV vancomycin and he did well. All the redness, pain and swelling has largely subsided and a decision was made to discharge him home to continue treatment as an outpatient. He has a PICC line placed in his right upper extremity and will be treated with vancomycin 2 grams IV daily as per pharmacy recommendation for a total of another 8 days starting tomorrow 09/26/2018. PHYSICAL EXAMINATION: GENERAL: When I examined him this afternoon, he looked well and was clearly in no apparent respiratory distress. No pallor, jaundice, cyanosis, or thyromegaly. No jugular venous distension. No lower limb edema. VITAL SIGNS: Her heart rate was 84, blood pressure 162/67, temperature was 98.1, respiratory rate 20, and oxygen saturation was 95%. HEAD, EYES, EARS, NOSE AND THROAT: Showed normocephalic, atraumatic. NECK: Supple. HEART: Showed normal first and second heart sounds. No gallop, rub or murmur. CHEST: Clear to auscultation. No crepitation or rhonchi. ABDOMEN: Distended, soft, nontender. NEUROLOGIC: He was awake, alert, responding appropriately. All cranial nerves are intact. He moves extremities without difficulty, ambulates without assistance or assistive devices. His intake over the last 24 hours was 2200, output was 1425. LABORATORY DATA: Showed a serum sodium 140, potassium 3.3, chloride 104, bicarbonate 29, anion gap of 7, BUN 28, creatinine 2.1, estimated GFR was 88 mL per minute. His glucose 96, calcium was 8.1. His trough level was 13.7. His white cell count was 7300, hemoglobin 11, hematocrit 33, MCV 82, and platelet count of 123,000. His blood cultures are so far negative. DISCHARGE MEDICATIONS: The patient will be discharged home to continue on his amlodipine 10 mg once a day, furosemide 40 mg once a day, omeprazole 40 mg twice a day, pioglitazone 30 mg daily, potassium chloride 10 mEq twice a day and simvastatin 80 mg at bedtime. He will be discharged also with vancomycin 2 g IV daily. DISCHARGE DIAGNOSES: Left lower extremity cellulitis. Other medical problems including type 2 diabetes, which seems to be well controlled, hypertension, hyperlipidemia, morbid obesity with questionable obstructive sleep apnea. LEONILA COLMENARES MD DR: TINY/gaurav JOB#: [id number] / [id number]
[2018-09-25 14:49] VITALS: BP 122/71
== END 2018-09-25 16:50 | disposition home or self-care (01) | DRG 603 ==
LOC: ER 17:48 → 1 SOUTH 21:10
PROVIDERS: ADMIT Internal Medicine; ATTEND Internal Medicine
PROC: 05HY33Z Insertion of Infusion Device into Upper Vein, Percutaneous Approach (ICD-10-PCS; principal; 2018-09-24)
DX: L03.116 Cellulitis of left lower limb (principal); R65.10 Systemic inflammatory response syndrome (SIRS) of non-infectious origin without acute organ dysfunction; Z68.44 Body mass index [BMI] 60.0-69.9, adult; E11.22 Type 2 diabetes mellitus with diabetic chronic kidney disease; E66.01 Morbid (severe) obesity due to excess calories; N18.9 Chronic kidney disease, unspecified; I12.9 Hypertensive chronic kidney disease with stage 1 through stage 4 chronic kidney disease, or unspecified chronic kidney disease; E78.5 Hyperlipidemia, unspecified; G47.33 Obstructive sleep apnea (adult) (pediatric); Z90.49 Acquired absence of other specified parts of digestive tract; Z83.3 Family history of diabetes mellitus; Z87.891 Personal history of nicotine dependence
CPT/HCPCS: 36415; 36569; 71045; 80048; 80053; 80202; 81001; 82947; 85025; 85027; 87040; 96365; J0690; J3370; J7040; 99285-25

== ENCOUNTER 2018-09-26 17:05 | Observation (INO) | payer OTHER ==
[~2018-09-26] VITALS: Ht 172.7 cm; Wt 181.6 kg
[~2018-09-26 17:05] MED LIST changes: +PIOG30TA41 PO
--- NOTE | 2018-09-26 17:50 | ED.ADGEN ---
Past History Past Medical History: Anemia, CAD, CHF, Diabetes, High Cholesterol, Heart Disease, Hypertension, Renal Failure, Other Past Surgical History: Appendectomy, Cholecystectomy, Other Alcohol Use: None Drug Use: None Adult General Chief Complaint Chief Complaint ".. I just got out of the hospital.. I getting treated for cellulitis... but my legs are more swollen and red... ".. "I am so weak I can't walk.. and my leg hurt so much I can't even stand on them..." HPI HPI Patient is a 67 year old male who presents with above hx and complaints of generalized weakness. Pt. states he is unable to walk across the room.. because of pain and weakness. Pt. reports increased pain, redness and edema in legs. Pt. recently admitted for cellulitis and is on IV Vanco. Pt. has hx recent admission for cellulitis. Has history of diabetes, hypertension, elevated lipids, coronary artery disease, morbid obesity and deconditioning. Patient normally follows with Dr. Mena. Review of Systems Review of Systems Constitutional: Subjective complaints of fever Eyes: Denies change in visual acuity, redness, or eye pain [] HENT: Denies nasal congestion or sore throat [] Respiratory: Denies cough or shortness of breath [] Cardiovascular: No additional information not addressed in HPI [] GI: Denies abdominal pain, nausea, vomiting, bloody stools or diarrhea [] : Denies dysuria or hematuria [] Musculoskeletal: Increased lower leg pain and weakness Integument: Complaints of cellulitis lower leg Neurologic: Denies headache, focal weakness or sensory changes [] Endocrine: Denies polyuria or polydipsia [] All other systems were reviewed and found to be within normal limits, except as documented in this note. Family History Family History DM, HTN Current Medications Current Medications Current Medications Medications (Trade) Dose Ordered Sig/Jax Start Time Stop Time Status Last Admin Dose Admin Albuterol/ Ipratropium (Duoneb) 3 ml RTQID 09/26/18 20:00 09/27/18 19:59 09/26/18 21:44 3 ML Furosemide (Lasix) 40 mg 1X ONCE 09/26/18 19:45 09/26/18 19:46 DC 09/26/18 19:49 40 MG Ketorolac Tromethamine (Toradol 15mg Vial) 15 mg QIDPRN PRN 09/26/18 20:00 10/01/18 19:59 Ondansetron HCl (Zofran) 4 mg PRN Q4HRS PRN 09/26/18 20:00 09/27/18 19:59 Vancomycin HCl (Vanco Per Pharmacy) 1 each PRN DAILY PRN 09/26/18 20:00 09/26/18 22:47 1 EACH Allergies Allergies Allergies Coded Allergies Type Severity Reaction Last Updated Verified No Known Drug Allergies 06/29/14 No Physical Exam Physical Exam Constitutional: Moderately acute distress, non-toxic appearance. HENT: Normocephalic, atraumatic, bilateral external ears normal, oropharynx moist, no oral exudates, nose normal. Eyes: PERRLA, EOMI, conjunctiva normal, no discharge. Neck: Normal range of motion, no tenderness, supple, no stridor. Cardiovascular:Tachycardia Heart rate regular rhythm, no murmur PMI to Lt. Lungs & Thorax: Bilateral breath sounds equal at apex, with basilar crackles on auscultation Abdomen: Bowel sounds normal, soft, no tenderness, no masses, no pulsatile masses. Morbid Obesity. Old surgery scars. Large pannus. Skin: Warm, dry, bilateral leg cellulitis and erythema. Back: No tenderness, no CVA tenderness. Extremities: Bilateral leg tenderness, no cyanosis, no clubbing, moves ext on request, marked calf edema. Neurologic: Alert and oriented X 3, moves ext. on request, , decreased plantar sensory . Psychologic: Affect anxious, judgement normal, mood normal. Current Patient Data Vital Signs Vital Signs Date Time Temp Pulse Resp B/P (MAP) Pulse Ox O2 Delivery O2 Flow Rate FiO2 09/26/18 19:42 85 152/89 (110) 97 09/26/18 17:42 20 Room Air 09/26/18 17:14 98.4 - Lab Results Laboratory Tests Test 09/26/18 17:52 09/26/18 18:00 09/26/18 18:43 White Blood Count 7.9 x10^3/uL (4.0-11.0) Red Blood Count 4.20 x10^6/uL (4.30-5.70) L Hemoglobin 11.1 g/dL (13.0-17.5) L Hematocrit 34.6 % (39.0-53.0) L Mean Corpuscular Volume 82 fL (79-100) Mean Corpuscular Hemoglobin 27 pg (25-35) Mean Corpuscular Hemoglobin Concent 32 g/dL (31-37) Red Cell Distribution Width 15.6 % (11.5-14.5) H Platelet Count 152 x10^3/uL (140-400) Neutrophils (%) (Auto) 70 % (31-73) Lymphocytes (%) (Auto) 15 % (24-48) L Monocytes (%) (Auto) 12 % (0-9) H Eosinophils (%) (Auto) 3 % (0-3) Basophils (%) (Auto) 1 % (0-3) Neutrophils # (Auto) 5.5 x10^3uL (1.8-7.7) Lymphocytes # (Auto) 1.2 x10^3/uL (1.0-4.8) Monocytes # (Auto) 0.9 x10^3/uL (0.0-1.1) Eosinophils # (Auto) 0.3 x10^3/uL (0.0-0.7) Basophils # (Auto) 0.0 x10^3/uL (0.0-0.2) Prothrombin Time 11.6 SEC (9.4-11.4) H Prothrombin Time INR 1.2 (0.9-1.1) H PTT 30 SEC (23-33) D-Dimer (Do) 1.38 mg/L (0.00-0.50) H Sodium Level 143 mmol/L (136-145) Potassium Level 3.6 mmol/L (3.5-5.1) Chloride Level 104 mmol/L (98-107) Carbon Dioxide Level 31 mmol/L (21-32) Anion Gap 8 (6-14) Blood Urea Nitrogen 25 mg/dL (8-26) Creatinine 2.0 mg/dL (0.7-1.3) H Estimated GFR (Cockcroft-Gault) 40.7 BUN/Creatinine Ratio 13 (6-20) Glucose Level 110 mg/dL (70-99) H Lactic Acid Level 0.7 mmol/L (0.4-2.0) Calcium Level 8.6 mg/dL (8.5-10.1) Total Bilirubin 0.5 mg/dL (0.2-1.0) Aspartate Amino Transferase (AST) 14 U/L (15-37) L Alanine Aminotransferase (ALT) 13 U/L (16-63) L Alkaline Phosphatase 70 U/L (46-116) Creatine Kinase 254 U/L (39-308) Troponin I Quantitative < 0.017 ng/mL (0-0.055) Total Protein 7.2 g/dL (6.4-8.2) Albumin 3.1 g/dL (3.4-5.0) L Albumin/Globulin Ratio 0.8 (1.0-1.7) L ZN-Wqc-[id number]-Type Natriuretic Peptide 660 pg/mL (0-124) H Urine Collection Type Unknown Urine Color Yellow Urine Clarity Clear Urine pH 7.0 Urine Specific [place] 1.015 Urine Protein 100 mg/dl (NEG-TRACE) Urine Glucose (UA) Neg mg/dL (NEG) Urine Ketones (Stick) Neg mg/dL (NEG) Urine Blood Mod (NEG) Urine Nitrite Neg (NEG) Urine Bilirubin Neg (NEG) Urine Urobilinogen Dipstick 0.2 mg/dL (0.2 mg/dL) Urine Leukocyte Esterase Neg (NEG) Urine RBC 3-5 /HPF (0-2) Urine WBC Occ /HPF (0-4) Urine Squamous Epithelial Cells None /LPF Urine Bacteria 0 /HPF (0-FEW) EKG EKG My interpretation EKG shows a sinus rhythm at 90 bpm. There is prolonged NH interval. But no findings acute STEMI with contralateral changes[] Radiology/Procedures Radiology/Procedures US shows no obvious DVT Lt. or Rt. legs. See formal report when available. [] Course & Med Decision Making Course & Med Decision Making Pertinent Labs and Imaging studies reviewed. (See chart for details) Pt. unable to walk due to leg pain and weakness. Will admit for possible placement in rehab.. Dr. Alvarado. Continue Vancomycin as directed. [] Final Impression Final Impression 1. Lower Leg Edema, Pain, Erythema 2. Hx. Cellulitis on IV antibiotics - Vanco[] 3. Weakness- unable to walk 4. Elevated Creat. 2.0 5. Hx. DM 6. Anemia 11.1 7. Elevated D-dimer 1.38 8. Morbid Obesity Dragon Disclaimer Dragon Disclaimer This electronic medical record was generated, in whole or in part, using a voice recognition dictation system. GOYO SALAZAR MD Sep 26, 2018 17:50
[2018-09-26 18:15] LABS: BASO % 1 % (0-3); EOS # 0.3 x10^3/uL (0.0-0.7); EOS % 3 % (0-3); HEMATOCRIT 34.6 % (39.0-53.0); HEMOGLOBIN 11.1 g/dL (13.0-17.5); LYMPH # 1.2 x10^3/uL (1.0-4.8); LYMPH % 15 % (24-48); MEAN CORPUSCULAR HEMOGLOBIN 27 pg (25-35); MEAN CORPUSCULAR HGB CONC 32 g/dL (31-37); MEAN CORPUSCULAR VOLUME 82 fL (79-100); MONO # 0.9 x10^3/uL (0.0-1.1); MONO % 12 % (0-9); NEUT # 5.5 x10^3uL (1.8-7.7); NEUT % 70 % (31-73); PLATELET COUNT 152 x10^3/uL (140-400); RED CELL DISTRIBUTION WIDTH 15.6 % (11.5-14.5); WHITE BLOOD COUNT 7.9 x10^3/uL (4.0-11.0)
[2018-09-26 18:32] LABS: ALBUMIN 3.1 g/dL (3.4-5.0); ALBUMIN/GLOBULIN RATIO 0.8 (1.0-1.7); CALCIUM 8.6 mg/dL (8.5-10.1); GFR 40.7; POTASSIUM 3.6 mmol/L (3.5-5.1); TOTAL BILIRUBIN 0.5 mg/dL (0.2-1.0); TOTAL PROTEIN 7.2 g/dL (6.4-8.2)
--- NOTE | 2018-09-26 18:38 | RAD ---
Left leg venous Doppler study: Clinical indications: Left leg swelling and pain. Findings: Duplex sonography (including dahl scale evaluation and color flow and waveform spectral analysis) of the proximal aspect of the greater saphenous vein and the proximal aspect of the profunda femoral vein and the entire length of the common femoral and superficial femoral and popliteal veins and the tibioperoneal trunk and the proximal aspect of the peroneal veins of the left leg was performed. Normal compressibility, augmentation of color Doppler flow after calf compression, and respiratory variation of Doppler flow is seen. Thus, there are no sonographic findings of deep venous thrombosis within these veins. The posterior tibial veins cannot be visualized in this patient due to large body habitus. Impression: There are no sonographic findings of deep venous thrombosis within the veins discussed above of the left lower extremity. Right leg venous Doppler study: Clinical indications: Right leg swelling and pain. Findings: Duplex sonography (including dahl scale evaluation and color flow and waveform spectral analysis) of the proximal aspect of the greater saphenous vein and proximal aspect of the profunda femoral vein and the entire length of the common femoral and superficial femoral and popliteal veins and the tibioperoneal trunk and the proximal aspect of the peroneal veins of the right leg was performed. Normal compressibility, augmentation of color Doppler flow after calf compression, and respiratory variation of Doppler flow is seen. Thus, there are no sonographic findings of deep venous thrombosis within these veins. The posterior tibial veins cannot be visualized in this patient due to large body habitus. Impression: There are no sonographic findings of deep venous thrombosis within the veins discussed above of the right lower extremity. Electronically signed by: Jesus Valdez MD (09/26/2018 6:35 PM) [facility]
--- NOTE | 2018-09-26 19:13 | EKG ---
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
[2018-09-26 19:22] LABS: BILIRUBIN,URINE NEG (NEG); CLARITY,URINE CLEAR; COLOR,URINE YELLOW; GLUCOSE,URINE NEG (NEG)
[2018-09-26 19:23] LABS: BACTERIA,URINE 0 /HPF (0-FEW); NITRITE,URINE NEG (NEG); UROBILINOGEN,URINE 0.2 mg/dL (0.2 mg/dL); WBC,URINE OCC /HPF (0-4)
[2018-09-26] MEDS ORDERED: FUROSEMIDE 40 MG/4 ML VIAL IVP ONE (19:45)
[2018-09-26] MEDS ORDERED: VANCOMYCIN PER PHARMACY MC PRN (20:00)
[2018-09-26] MEDS ORDERED: ONDANSETRON PF 4 MG/2 ML VIAL. IV PRN (20:00)
[2018-09-26] MEDS ORDERED: KETOROLAC 15 MG/ML VIAL. IV PRN (20:00)
[2018-09-26] MEDS ORDERED: VANCOMYCIN 2 GM in IV NORMAL SALINE 500ML 500 ML IV ONE (20:30)
[2018-09-26] MEDS: IPRATRPIUM/ALBUTEROL 0.5/2.5MG 3 ML NEBU. NEB SCH (21:44)
[2018-09-26 22:31] VITALS: BP 156/73
[2018-09-26] MEDS ORDERED: VANCOMYCIN 2 GM in IV NORMAL SALINE 500ML 500 ML IV SCH (22:45)
[2018-09-26] MEDS: ENOXAPARIN ** NOTE DOSE ** SYRINGE SQ SCH (22:55)
[2018-09-27 05:12] VITALS: BP 143/73
[2018-09-27] MEDS: IPRATRPIUM/ALBUTEROL 0.5/2.5MG 3 ML NEBU. NEB SCH ×3 (05:21→15:28)
[2018-09-27 06:25] LABS: BASO # 0.1 x10^3/uL (0.0-0.2); BASO % 1 % (0-3); EOS # 0.3 x10^3/uL (0.0-0.7); EOS % 3 % (0-3); HEMATOCRIT 32.3 % (39.0-53.0); HEMOGLOBIN 10.3 g/dL (13.0-17.5); LYMPH # 1.8 x10^3/uL (1.0-4.8); LYMPH % 22 % (24-48); MEAN CORPUSCULAR HEMOGLOBIN 26 pg (25-35); MEAN CORPUSCULAR HGB CONC 32 g/dL (31-37); MEAN CORPUSCULAR VOLUME 82 fL (79-100); MONO # 0.9 x10^3/uL (0.0-1.1); MONO % 11 % (0-9); NEUT # 5.1 x10^3uL (1.8-7.7); NEUT % 63 % (31-73); PLATELET COUNT 139 x10^3/uL (140-400); RED BLOOD COUNT 3.92 x10^6/uL (4.30-5.70); RED CELL DISTRIBUTION WIDTH 15.5 % (11.5-14.5); WHITE BLOOD COUNT 8.1 x10^3/uL (4.0-11.0)
[2018-09-27 06:40] LABS: CALCIUM 8.3 mg/dL (8.5-10.1); CREATININE 1.9 mg/dL (0.7-1.3); GFR 43.1; POTASSIUM 3.4 mmol/L (3.5-5.1)
[2018-09-27] MEDS: ENOXAPARIN ** NOTE DOSE ** SYRINGE SQ SCH (07:49)
[2018-09-27] MEDS: PANTOPRAZOLE 40 MG TABLET. PO SCH ×2 (07:49→17:30)
[2018-09-27] MEDS: FUROSEMIDE 40 MG TABLET PO SCH (07:49)
[2018-09-27] MEDS: PIOGLITAZONE 15 MG TABLET. PO SCH (07:49)
[2018-09-27] MEDS: ASPIRIN 81 MG TAB.CHEW PO SCH (07:49)
[2018-09-27] MEDS: LACTOBACILLUS RHAMNOSUS GG 1 CAPSULE. PO SCH ×2 (07:49→21:12)
[2018-09-27] MEDS: POTASSIUM CHLORIDE 10 MEQ TABLET.ER. PO SCH ×2 (07:50→17:29)
[2018-09-27] MEDS: amLODIPine BESYLATE 10 MG TABLET PO SCH (07:50)
[2018-09-27 11:12] VITALS: BP 114/52
--- NOTE | 2018-09-27 11:36 | HP ---
ADMIT DATE: 09/27/2018 HISTORY OF PRESENT ILLNESS: The patient is a 67-year-old -Sammar[place] male patient, who was discharged home on 09/25/2018 after he has a PICC line placed and he was supposed to come as an outpatient for treatment of his left lower extremity cellulitis. He apparently was developed severe pain in his right foot and was unable to walk. He was brought to the Emergency Room by his girlfriend. They apparently did lab work as well as Doppler ultrasound of both lower extremities; however, no x-rays done to his right foot, which is the site of pain and was admitted for further evaluation and treatment. On questioning him, his pain was mostly in the outer aspect of the right foot. He denied any fall or trauma. Unfortunately even an x-ray was done for him in the Emergency Room. PAST MEDICAL HISTORY: Significant for type 2 diabetes mellitus, hypertension, hyperlipidemia and chronic kidney disease. PAST SURGICAL HISTORY: Significant for nose surgery, cholecystectomy, appendectomy, bilateral inguinal hernia repair, and bilateral carpal tunnel release. ALLERGIES: He has no known drug. He was discharged to home on 09/26/2018 to continue on his amlodipine 10 mg once a day, furosemide 40 mg once a day, omeprazole 40 mg twice a day, pioglitazone 30 mg daily, potassium chloride 10 mEq twice a day, simvastatin 80 mg at bedtime and was discharged also on vancomycin 2 g IV daily to treat his left lower extremity cellulitis. FAMILY HISTORY: He has one older brother who is alive and has diabetes and one younger sister, who is healthy. His father is still alive at the age of 96 and has diabetes mellitus. Mother is alive at the age of 88. SOCIAL HISTORY: He is , has 2 sons, one of them lives with him. He quit smoking in 1979. Quit drinking alcohol about 14 years ago. He is retired from [employer] in 2017. REVIEW OF SYSTEMS: His main complaint was pain in his right foot with inability to walk or drive. PHYSICAL EXAMINATION: GENERAL: On arrival to the Emergency Room, he looked well and was clearly in no apparent respiratory distress. No pallor, jaundice, cyanosis, or thyromegaly. No jugular venous distension. No limb edema. VITAL SIGNS: His heart rate was 86, blood pressure 153/75, temperature was 98.4, respiratory rate was 18 and oxygen saturation was 97%. HEAD, EYES, EARS, NOSE, AND THROAT: Showed normocephalic, atraumatic. NECK: Supple. HEART: Showed normal first and second heart sounds. No gallop, rub or murmur. CHEST: Clear to auscultation. No crepitation or rhonchi. ABDOMEN: Distended, soft, nontender. No guarding or rigidity. No organomegaly. All hernial orifice intact. Bowel sounds normal. NEUROLOGIC: He was awake, alert, responding appropriately. All cranial nerves intact. EXTREMITIES: He moves extremities without difficulty. Examination of the right foot compared to the left he has marked tenderness on the outer aspect of the right foot mostly over the fifth and fourth metatarsal bone, although there is no obvious redness or deformity. LABORATORY DATA: On arrival showed a white cell count of 7000, hemoglobin 11, hematocrit 34, MCV 82 and platelet count of 153,000. His chemistry showed a serum sodium 143, potassium 3.6, chloride 104, bicarbonate 31, anion gap of 8, BUN 25, creatinine 2, estimated GFR was 40 mL per minute, his glucose 110, calcium was 8.7. Total AST, ALT, alkaline phosphatase were normal. Total protein was 7.2, albumin was 3.1. He did have Doppler ultrasound of both lower extremities, which showed no sonographic findings of deep vein thrombosis within the veins. Evaluated both left and right lower extremity. ASSESSMENT AND PLAN: The patient was admitted and was continued on all of his medication. Unfortunately without addressing the fact that he has the pain mostly in his right foot and his cellulitis was in the left foot. LEONILA COLMENARES MD DR: TINY/gaurav JOB#: [id number] / [id number]
[2018-09-27 15:01] VITALS: BP 148/78
--- NOTE | 2018-09-27 15:20 | RAD ---
EXAM: Right foot, 3 views. HISTORY: Pain. COMPARISON: None. FINDINGS: 3 views of the right foot are obtained. There is no fracture, dislocation or subluxation. There is mild mid foot osteophytosis. There is a small plantar spur. There is diffuse soft tissue swelling. There are vascular calcifications. IMPRESSION: 1. No acute osseous finding. 2. Midfoot osteoarthritis and small plantar spur. 3. Diffuse soft tissue swelling. Electronically signed by: Fay Aguirre MD (09/27/2018 3:17 PM) [facility]
--- NOTE | 2018-09-27 18:42 | PN ---
DATE: 09/27/2018 SUBJECTIVE: The patient is resting comfortably in his recliner, in no apparent distress. He continued to complain of pain mostly in his right foot. There is no obvious redness, swelling. There is marked tenderness mostly in the outer aspect of the right foot involving probably the right fifth and fourth metatarsal bones without any obvious deformity. PHYSICAL EXAMINATION: GENERAL: When I examined him, he looked well and was clearly in no apparent respiratory distress. No pallor, jaundice, cyanosis, or thyromegaly. No jugular venous distension. No lower limb edema. VITAL SIGNS: His heart rate was 81, blood pressure was 143/73, temperature was 98.9, respiratory rate 22, and oxygen saturation was 98% on room air. The rest of clinical examination is unremarkable. ASSESSMENT AND PLAN: The pain is mostly on his outer aspect of the right foot. My plan is obviously to continue with IV vancomycin. Continue with all his other medications. I will arrange for him to have an x-ray of his right foot. I will discontinue his therapeutic Lovenox as he has no evidence of deep venous thrombosis and any chest pain, shortness of breath, or hypoxia. LEONILA COLMENARES MD DR: TINY/gaurav JOB#: [id number] / [id number]
[2018-09-27 19:29] VITALS: BP 136/69
[2018-09-27] MEDS ORDERED: SIMVASTATIN 40 MG TABLET. PO SCH (21:00)
[2018-09-27] MEDS: VANCOMYCIN 2 GM in IV NORMAL SALINE 500ML 500 ML IV SCH (22:11)
[2018-09-27 23:15] VITALS: BP 137/77
[2018-09-27] MEDS ORDERED: ALBUTEROL SULFATE 2.5 MG/3 ML NEBU. NEB PRN (23:45)
[2018-09-28 05:12] VITALS: BP 136/73
[2018-09-28] MEDS: IPRATRPIUM/ALBUTEROL 0.5/2.5MG 3 ML NEBU. NEB SCH ×3 (05:26→16:14)
[2018-09-28 07:18] LABS: C REACTIVE PROTEIN 120.7 mg/L (0-3.3); CREATININE 2.2 mg/dL (0.7-1.3); GFR 36.4; POTASSIUM 3.1 mmol/L (3.5-5.1); URIC ACID 8.2 mg/dL (3.5-7.2)
[2018-09-28] MEDS ORDERED: POTASSIUM CHLORIDE 20 MEQ TABLET.ER. PO ONE (08:15)
[2018-09-28] MEDS: FUROSEMIDE 40 MG TABLET PO SCH (08:40)
[2018-09-28] MEDS: LACTOBACILLUS RHAMNOSUS GG 1 CAPSULE. PO SCH (08:40)
[2018-09-28] MEDS: PIOGLITAZONE 15 MG TABLET. PO SCH (08:40)
[2018-09-28] MEDS: PANTOPRAZOLE 40 MG TABLET. PO SCH ×2 (08:40→17:26)
[2018-09-28] MEDS: ASPIRIN 81 MG TAB.CHEW PO SCH (08:40)
[2018-09-28] MEDS: amLODIPine BESYLATE 10 MG TABLET PO SCH (08:40)
[2018-09-28] MEDS: POTASSIUM CHLORIDE 10 MEQ TABLET.ER. PO SCH ×2 (08:41→17:26)
[2018-09-28 11:09] VITALS: BP 121/58
[2018-09-28 13:46] LABS: PHOSPHORUS 3.2 mg/dL (2.6-4.7); POTASSIUM 3.9 mmol/L (3.5-5.1)
[2018-09-28] MEDS ORDERED: VANC2PLA IV (14:34)
[2018-09-28] MEDS: VANCOMYCIN 2 GM in IV NORMAL SALINE 500ML 500 ML IV SCH (14:55)
[2018-09-28 16:02] VITALS: BP 123/67
--- NOTE | 2018-09-28 16:52 | DS ---
DATE OF DISCHARGE: HOSPITAL COURSE: The patient is a 67-year-old -[place] male patient who came in complaining of pain in his right foot, made worse by walking. The pain was mostly in the outer aspect of the right foot involving his fourth and fifth metatarsal bone. There was no obvious swelling, deformity, but tender to touch. We did x-ray of the right foot, which showed no acute osseous finding, mid foot osteoarthritis and small plantar spur, diffuse soft tissue swelling. His uric acid was slightly elevated at 8.2. The upper limit of normal of 7.2. However, the patient has end-stage renal disease and his sed rate and C-reactive protein were elevated because of her left lower extremity cellulitis. When he was seen today by the physical therapist and apparently was able to walk for 40 feet without any problem and therefore, a decision was made to discharge him home to come as an outpatient to get his IV vancomycin on a daily basis. His left lower extremity cellulitis. PHYSICAL EXAMINATION: GENERAL: When I examined him this afternoon, he looked well and was clearly in no apparent respiratory distress. No pallor, jaundice, cyanosis, or thyromegaly. No jugular venous distension. No lower limb edema. VITAL SIGNS: His heart rate was 67, blood pressure 121/58, temperature was 98.5, respiratory rate 20, and oxygen saturation was 93%. The rest of clinical exam is stable, has not really changed. LABORATORY DATA: As of this morning showed a serum sodium 142, potassium 3.1, chloride 104, bicarbonate 27, anion gap of 11, BUN 28, creatinine 2.2, estimated GFR was 60 mL per minute, his glucose 114, uric acid was 8.2, calcium was 8, phosphorus 3.2. His C-reactive protein was 120 mg/dL. His white cell count was 8000, hemoglobin 10, hematocrit 32, MCV 82, and platelet count of 139,000. His sedimentation rate was 63 mmHg. DISCHARGE MEDICATIONS: He will be discharged home to continue on following medications: Vancomycin 2 g IV daily, amlodipine 10 mg once a day, furosemide 40 mg once a day, omeprazole 40 mg twice a day, pioglitazone for Actos 30 mg daily, potassium chloride 10 mEq twice a day, simvastatin 80 mg at bedtime. FINAL DISCHARGE DIAGNOSES: 1. Left lower extremity cellulitis. 2. Pain in the right foot without any obvious fracture. 3. Hypertension. 4. Hyperlipidemia. 5. Chronic kidney disease. 6. Morbid obesity, obstructive sleep apnea. LEONILA COLMENARES MD DR: TINY/gaurav JOB#: [id number] / [id number]
[2018-09-29 00:06] LABS: PTH INTACT 143 pg/mL (15-65)
[2018-09-29 04:06] LABS: MICRO CREAT RATIO 49.4 mg/g creat (0.0-30.0); MICROALB RD UR 76.2 ug/mL (Not Estab.); UR PROTEIN RD 29.6 mg/dL (Not Estab.)
[2018-09-29 13:38] LABS: UR CREATININE RD 154.1
== END 2018-09-28 19:00 | disposition home or self-care (01) ==
LOC: ER 17:05 → 1 SOUTH 20:00 → INTOOBSV 20:00
PROVIDERS: ADMIT Internal Medicine; ATTEND Internal Medicine
DX: L03.116 Cellulitis of left lower limb (principal); I13.2 Hypertensive heart and chronic kidney disease with heart failure and with stage 5 chronic kidney disease, or end stage renal disease; N18.6 End stage renal disease; G47.33 Obstructive sleep apnea (adult) (pediatric); I50.9 Heart failure, unspecified; E78.00 Pure hypercholesterolemia, unspecified; E66.01 Morbid (severe) obesity due to excess calories; E11.22 Type 2 diabetes mellitus with diabetic chronic kidney disease; E78.5 Hyperlipidemia, unspecified; I25.10 Atherosclerotic heart disease of native coronary artery without angina pectoris; D64.9 Anemia, unspecified; Z83.3 Family history of diabetes mellitus; Z82.49 Family history of ischemic heart disease and other diseases of the circulatory system; Z68.44 Body mass index [BMI] 60.0-69.9, adult; Z87.891 Personal history of nicotine dependence; Z90.49 Acquired absence of other specified parts of digestive tract
CPT/HCPCS: 36415; 73630; 80048; 80053; 81001; 82043; 82306; 82550; 82570; 82728; 82947; 83540; 83550; 83605; 83880; 83970; 84100; 84132; 84156; 84484; 84550; 85025; 85379; 85610; 85651; 85730; 86140; 87040; 93005; 93970; 94640; 96365; 96366; 96372; 96375; 97116; 97161; 99284; G0378; J1650; J1940; J3370; J7040; J7613; J7620; 96374; G0379; J1885; 99285-25

== ENCOUNTER → 2018-10-02 | Outpatient (CLI) | payer OTHER ==
[2018-10-01 15:23] VITALS: BP 133/71
[~2018-10-02] MED LIST changes: +ALBU2.5V14 NEB; +AMOX1TAB10 PO; +DOXY100C2 PO; +IPRA4AER INH; +PRED50TA PO; +VANC2PLA IV
--- NOTE | 2018-10-02 12:14 | RAD ---
EXAM: Renal sonogram. HISTORY: Renal insufficiency. TECHNIQUE: Sonographic imaging the kidneys and bladder was performed. COMPARISON: 05/07/2018. FINDINGS: The exam is extremely limited due to patient body habitus. The kidneys are not well seen. The bladder is partially nondistended. IMPRESSION: Extremely limited exam due to patient body habitus. The kidneys are not adequately seen. Electronically signed by: Fay Aguirre MD (10/02/2018 12:11 PM) [id number]
== END | disposition home or self-care (01) ==
LOC: US 09:28
PROVIDERS: ATTEND Nurse Practitioner Adult Health
DX: I13.0 Hypertensive heart and chronic kidney disease with heart failure and stage 1 through stage 4 chronic kidney disease, or unspecified chronic kidney disease (principal); E11.22 Type 2 diabetes mellitus with diabetic chronic kidney disease; I50.9 Heart failure, unspecified; N18.3 Chronic kidney disease, stage 3 (moderate)
CPT/HCPCS: 76770

== ENCOUNTER → 2018-10-08 | Outpatient (CLI) | payer OTHER ==
[2018-10-08 15:30] VITALS: BP 151/84
--- NOTE | 2018-10-08 15:30 | NUR ---
DC picc line with ease. PT tolerated well. NO bleeding noted, petroleum gauze applied to site. Tip intact with no vegitation noted. Jessica ESPINO
== END | disposition home or self-care (01) ==
LOC: OPINF 14:41
PROVIDERS: ATTEND Internal Medicine
DX: Z45.2 Encounter for adjustment and management of vascular access device (principal); I13.2 Hypertensive heart and chronic kidney disease with heart failure and with stage 5 chronic kidney disease, or end stage renal disease; N18.6 End stage renal disease; I50.33 Acute on chronic diastolic (congestive) heart failure; I25.10 Atherosclerotic heart disease of native coronary artery without angina pectoris; J44.9 Chronic obstructive pulmonary disease, unspecified; K21.9 Gastro-esophageal reflux disease without esophagitis; E78.5 Hyperlipidemia, unspecified; E66.01 Morbid (severe) obesity due to excess calories; G47.33 Obstructive sleep apnea (adult) (pediatric); E78.00 Pure hypercholesterolemia, unspecified; E11.22 Type 2 diabetes mellitus with diabetic chronic kidney disease; Z87.891 Personal history of nicotine dependence; Z90.49 Acquired absence of other specified parts of digestive tract
CPT/HCPCS: 99211

== ENCOUNTER → 2018-10-10 | Outpatient (CLI) | payer OTHER ==
[2018-10-08 15:30] VITALS: BP 151/84
[2018-10-10 12:06] LABS: HEMOGLOBIN 10.8 g/dL (13.0-17.5)
[2018-10-10 12:13] LABS: ALBUMIN 3.2 g/dL (3.4-5.0); CALCIUM 8.7 mg/dL (8.5-10.1); CREATININE 2.1 mg/dL (0.7-1.3); GFR 38.3; PHOSPHORUS 3.5 mg/dL (2.6-4.7); POTASSIUM 4.3 mmol/L (3.5-5.1)
--- NOTE | 2018-10-10 12:29 | RAD ---
PQRS Compliance statement: One or more of the following individualized dose reduction techniques were utilized for this examination: 1. Automated exposure control. 2. Adjustment of the mA and/or kV according to patient size. 3. Use of iterative reconstruction technique. Indication:HYPERTENSIVE CHRONIC KIDNEY DISEASE TECHNIQUE: CT abdomen and pelvis without IV contrast with multiplanar reformats. COMPARISON: 12/06/2016 FINDINGS: Limited evaluation of solid abdominal and pelvic organs due to lack of IV contrast. Heart is normal in size. No pericardial or pleural effusion. Clear lung bases. Noncontrast appearance of the liver, spleen, pancreas, adrenals and kidneys within normal limits. No nephrolithiasis or hydronephrosis. Moderate plaque is seen at the origin of the right renal artery. No enlarged retroperitoneal or pelvic adenopathy. No free pelvic fluid or ascites. Diffusely dilated transverse colon is seen without obstructing mass. Small bowel loops are not dilated. The prostate and seminal vesicles show no large mass. Urinary bladder demonstrates no radiopaque stones. No pneumoperitoneum. No suspicious bony lesion. IMPRESSION: Limited evaluation of solid abdominal and pelvic organs due to lack of IV contrast. 1. No nephrolithiasis or hydronephrosis. 2. Focally dilated transverse colon without evidence of obstructing mass in the ascending colon. Findings may suggest focal colonic ileus. Correlate with symptoms. Electronically signed by: Lito Ledesma DO (10/10/2018 12:26 PM) [facility]
[2018-10-10 13:21] LABS: BACTERIA,URINE 0 /HPF (0-FEW); BILIRUBIN,URINE NEG (NEG); CLARITY,URINE CLEAR; COLOR,URINE YELLOW; GLUCOSE,URINE NEG (NEG); NITRITE,URINE NEG (NEG); SQUAMOUS EPITHELIAL CELL,UR FEW /LPF; UROBILINOGEN,URINE 0.2 mg/dL (0.2 mg/dL); WBC,URINE RARE /HPF (0-4)
[2018-10-11 04:10] LABS: C3 COMPLEMENT 113 mg/dL (82-167); C4 COMPLEMENT 46 mg/dL (14-44); CALCIUM PTH 8.6 mg/dL (8.6-10.2); CREATININE PTH 2.04 mg/dL (0.76-1.27); PTH INTACT 151 pg/mL (15-65)
[2018-10-12 15:06] LABS: KAPPA FREE 61.3 mg/L (3.3-19.4); KAPPA LAMBDA RATIO 2.56 (0.26-1.65); LAMBDA FREE 23.9 mg/L (5.7-26.3)
[2018-10-13 19:12] LABS: ANA INTERP Negative (.)
[2018-10-14 15:07] LABS: C ANCA <1:20 titer (Neg:<1:20); P ANCA <1:20 titer (Neg:<1:20)
== END | disposition home or self-care (01) ==
LOC: CT 10:58
PROVIDERS: ATTEND Nurse Practitioner Adult Health
DX: I12.9 Hypertensive chronic kidney disease with stage 1 through stage 4 chronic kidney disease, or unspecified chronic kidney disease (principal); E11.22 Type 2 diabetes mellitus with diabetic chronic kidney disease; N18.3 Chronic kidney disease, stage 3 (moderate); N17.9 Acute kidney failure, unspecified; D64.9 Anemia, unspecified; K59.39 Other megacolon; Z68.44 Body mass index [BMI] 60.0-69.9, adult
CPT/HCPCS: 36415; 74176; 80069; 81001; 82728; 83520; 83540; 83550; 83970; 85014; 85018; 86021; 86038; 86160; 86162

== ENCOUNTER 2018-10-26 08:58 | Emergency (ER) | payer OTHER ==
[~2018-10-26] VITALS: Ht 172.7 cm; Wt 183.9 kg
[~2018-10-26 08:58] MED LIST changes: -ALBU2.5V14 NEB; -AMOX1TAB10 PO; -DOXY100C2 PO; -IPRA4AER INH; -PRED50TA PO
--- NOTE | 2018-10-26 09:30 | PHYS DOC ---
Past History Past Medical History: Anemia, Asthma, CAD, CHF, Diabetes, High Cholesterol, Heart Disease, Hypertension, Renal Failure, Other Past Surgical History: Appendectomy, Cholecystectomy, Other Smoking: Non-smoker Alcohol Use: Sober Drug Use: None Adult General Chief Complaint Chief Complaint: SHORTNESS OF BREATH HPI HPI Patient is a 68-year-old male who presents with shortness of breath since last evening. No significant improvement with his home albuterol. Mild cough, nonproductive. No fever. Nothing really seems to make the symptoms better or worse. They are mild to moderate in intensity. No chest pain. Patient does have a history of hypertension, diabetes, as well as asthma. No recent surgeries, no new leg swelling, patient sits/sleeps in a recliner at baseline and there has been no change in this recently.[] Review of Systems Review of Systems Constitutional: Denies fever or chills [] Eyes: Denies change in visual acuity, redness, or eye pain [] HENT: Denies nasal congestion or sore throat [] Respiratory: See history of present illness[] Cardiovascular: No chest pain, no palpitations[] GI: Denies abdominal pain, nausea, vomiting, bloody stools or diarrhea [] : Denies dysuria or hematuria [] Musculoskeletal: Denies back pain or joint pain [] Integument: Denies rash or skin lesions [] Neurologic: Denies headache, focal weakness or sensory changes [] Endocrine: Denies polyuria or polydipsia [] All other systems were reviewed and found to be within normal limits, except as documented in this note. Current Medications Current Medications Current Medications Medications (Trade) Dose Ordered Sig/Jax Start Time Stop Time Status Last Admin Dose Admin Albuterol/ Ipratropium (Duoneb) 3 ml 1X ONCE 10/26/18 09:15 10/26/18 09:16 UNV Allergies Allergies Allergies Coded Allergies Type Severity Reaction Last Updated Verified No Known Drug Allergies 06/29/14 No Physical Exam Physical Exam Constitutional: Well developed, well nourished, no acute distress, non-toxic appearance. [] HENT: Normocephalic, atraumatic, bilateral external ears normal, oropharynx moist, no oral exudates, nose normal. [] Eyes: PERRLA, EOMI, conjunctiva normal, no discharge. [] Neck: Normal range of motion, no tenderness, supple, no stridor. [] Cardiovascular:Heart rate regular rhythm, no murmur [] Lungs & Thorax: Bilateral breath sounds clear to auscultation [] Abdomen: Bowel sounds normal, soft, no tenderness, no masses, no pulsatile masses. [] Skin: Warm, dry, no erythema, no rash. [] Back: No tenderness, no CVA tenderness. [] Extremities: No tenderness, no cyanosis, no clubbing, ROM intact, 3+ pretibial edema bilaterally. [] Neurologic: Alert and oriented X 3, normal motor function, normal sensory function, no focal deficits noted. [] Psychologic: Affect normal, judgement normal, mood normal. [] EKG EKG EKG shows a sinus rhythm, 88 bpm, normal axis, QTC of 471 ms, prolonged AK interval at 266 ms, no ST elevations. Interpreted by me at 1001. This was compared with EKG of 05/06/2018 that showed no acute changes, the prolonged AK interval was noted at that time as well.[] Radiology/Procedures Radiology/Procedures Indication: short of breath with cough x 2 days hx of asthma Findings: Normal lung volume. No focal airspace disease. Normal pulmonary vasculature. No pleural effusion. No pneumothorax. Unchanged cardiomegaly. The great vessels are normal. No acute osseous abnormality. Mild multilevel degenerative changes of the visualized spine. Air-filled, dilated large bowel. Surgical clips in the left upper quadrant. Impression: 1. No focal consolidation. 2. Unchanged cardiomegaly. 3. Air-filled, dilated large bowel, although not significantly changed from prior exams.[] Course & Med Decision Making Course & Med Decision Making Pertinent Labs and Imaging studies reviewed. (See chart for details) ED course: Patient arrived, was placed in bed, and tolerated exam well. He felt much better and still had clear lung sounds after nebulizer treatment. He was [place] and [place] with any complications. After return of lab and imaging findings, these were discussed with the patient voiced understanding. All questions were answered. Patient was discharged in improved condition. Brynn decision making: Patient with what appears to be an asthma exacerbation. His BNP is noted to be elevated compared to his previous baseline and so we'll place him on a short course of diuretics. No evidence of congestive heart failure on x-ray, troponin is not elevated's do not see this as a result of new cardiac dysfunction/NSTEMI/ACS. No evidence of pneumonia or pneumothorax.[] Dragon Disclaimer Dragon Disclaimer This electronic medical record was generated, in whole or in part, using a voice recognition dictation system. Departure Departure: Impression: Primary Impression: Acute on chronic diastolic CHF (congestive heart failure) Additional Impressions: Chronic kidney disease Asthma Disposition: 01 HOME, SELF-CARE Condition: IMPROVED Referrals: MINOR SHIRLEY MD (PCP) Follow-up in 2 days Patient Instructions: Asthma Attacks, Prevention, Asthma, Adult, Heart Failure Additional Instructions: Follow-up with your regular doctor in 2 days. Take the medication as prescribed. Return to the ER if worsening difficulty breathing or any other concerns. Scripts Albuterol Sulfate (ALBUTEROL SULFATE CONC NEB SOLN) 2.5 Mg/0.5 Ml Vial.neb 1 VIAL NEB Q4HRS for asthma, shortness of breath, #60 VIAL 0 Refills Prov: NEETU SOLANO DO 10/26/18 Prednisone (PREDNISONE) 50 Mg Tablet 1 TAB PO DAILY for INFLAMMATION, #5 TAB Prov: NEETU SOLANO DO 10/26/18 Furosemide (LASIX) 40 Mg Tablet 1 TAB PO DAILY for CHF, #7 TAB 0 Refills Prov: NEETU SOLANO DO 10/26/18 Ipratropium/Albuterol Sulfate (COMBIVENT RESPIMAT INHAL) 4 Gm Aer.w.adap 1 PUFF INH Q6HRS for shortness of breath, #1 INHALER Prov: NEETU SOLANO DO 10/26/18 Problem Qualifiers Additional Impressions: Chronic kidney disease Chronic kidney disease stage: unspecified stage Qualified Codes: N18.9 - Chronic kidney disease, unspecified Asthma Asthma severity: mild Asthma persistence: intermittent Asthma complication type: with acute exacerbation Qualified Codes: J45.21 - Mild intermittent asthma with (acute) exacerbation NEETU SOLANO DO Oct 26, 2018 09:30
[2018-10-26 09:33] LABS: BASO % 1 % (0-3); EOS # 0.2 x10^3/uL (0.0-0.7); EOS % 4 % (0-3); HEMATOCRIT 34.7 % (39.0-53.0); HEMOGLOBIN 11.3 g/dL (13.0-17.5); LYMPH # 0.9 x10^3/uL (1.0-4.8); LYMPH % 16 % (24-48); MEAN CORPUSCULAR HEMOGLOBIN 27 pg (25-35); MEAN CORPUSCULAR HGB CONC 33 g/dL (31-37); MEAN CORPUSCULAR VOLUME 82 fL (79-100); MONO # 0.7 x10^3/uL (0.0-1.1); MONO % 12 % (0-9); NEUT # 3.8 x10^3uL (1.8-7.7); NEUT % 67 % (31-73); PLATELET COUNT 151 x10^3/uL (140-400); RED BLOOD COUNT 4.23 x10^6/uL (4.30-5.70); RED CELL DISTRIBUTION WIDTH 15.8 % (11.5-14.5); WHITE BLOOD COUNT 5.7 x10^3/uL (4.0-11.0)
--- NOTE | 2018-10-26 09:48 | RAD ---
PA and lateral views of the chest. Comparison: Chest radiograph dated 10/26/2018, CT abdomen and pelvis dated 10/10/2018. Indication: short of breath with cough x 2 days hx of asthma Findings: Normal lung volume. No focal airspace disease. Normal pulmonary vasculature. No pleural effusion. No pneumothorax. Unchanged cardiomegaly. The great vessels are normal. No acute osseous abnormality. Mild multilevel degenerative changes of the visualized spine. Air-filled, dilated large bowel. Surgical clips in the left upper quadrant. Impression: 1. No focal consolidation. 2. Unchanged cardiomegaly. 3. Air-filled, dilated large bowel, although not significantly changed from prior exams. Electronically signed by: Zafar Gustafson MD (10/26/2018 9:46 AM) [facility]
[2018-10-26 09:53] LABS: ALBUMIN 3.6 g/dL (3.4-5.0); ALBUMIN/GLOBULIN RATIO 0.8 (1.0-1.7); CALCIUM 8.7 mg/dL (8.5-10.1); CREATININE 2.1 mg/dL (0.7-1.3); GFR 38.3; MAGNESIUM 1.8 mg/dL (1.8-2.4); POTASSIUM 3.8 mmol/L (3.5-5.1); TOTAL BILIRUBIN 0.5 mg/dL (0.2-1.0); TOTAL PROTEIN 8.2 g/dL (6.4-8.2)
[2018-10-26] MEDS ORDERED: IPRATRPIUM/ALBUTEROL 0.5/2.5MG 3 ML NEBU. NEB ONE (10:00)
[2018-10-26 10:07] VITALS: BP 148/59
[2018-10-26] MEDS ORDERED: methylPREDNISolone SOD SUCC PF 125 MG/2 ML VIAL. IV ONE (10:15)
[2018-10-26] MEDS ORDERED: FURO-68 PO (10:16)
[2018-10-26] MEDS ORDERED: PRED50TA PO (10:16)
[2018-10-26] MEDS ORDERED: IPRA4AER INH (10:16)
[2018-10-26] MEDS ORDERED: ALBU2.5V14 NEB (10:28)
--- NOTE | 2018-10-26 18:15 | EKG ---
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
[2018-11-25] MEDS ORDERED: DOXY100C2 PO (13:16)
== END 2018-10-26 10:38 | disposition home or self-care (01) ==
LOC: ER 08:58
DX: I13.0 Hypertensive heart and chronic kidney disease with heart failure and stage 1 through stage 4 chronic kidney disease, or unspecified chronic kidney disease (principal); I50.33 Acute on chronic diastolic (congestive) heart failure; N18.9 Chronic kidney disease, unspecified; E11.22 Type 2 diabetes mellitus with diabetic chronic kidney disease; J45.21 Mild intermittent asthma with (acute) exacerbation; I25.10 Atherosclerotic heart disease of native coronary artery without angina pectoris; Z86.2 Personal history of diseases of the blood and blood-forming organs and certain disorders involving the immune mechanism
CPT/HCPCS: 36415; 71046; 80053; 83735; 83880; 84484; 85025; 85610; 93005; 94640; 96374; 99284; J2930; J7620

== ENCOUNTER → 2018-11-18 | Outpatient (CLI) | payer OTHER ==
[2018-10-26 10:07] VITALS: BP 148/59
[~2018-11-18] MED LIST changes: +ALBU2.5V14 NEB; +AMOX1TAB10 PO; +DOXY100C2 PO; +IPRA4AER INH; +PRED50TA PO
[2018-11-18 15:58] LABS: BASO % 1 % (0-3); EOS # 0.2 x10^3/uL (0.0-0.7); EOS % 4 % (0-3); HEMATOCRIT 35.9 % (39.0-53.0); HEMOGLOBIN 11.5 g/dL (13.0-17.5); LYMPH % 18 % (24-48); MEAN CORPUSCULAR HEMOGLOBIN 27 pg (25-35); MEAN CORPUSCULAR HGB CONC 32 g/dL (31-37); MEAN CORPUSCULAR VOLUME 84 fL (79-100); MONO # 0.4 x10^3/uL (0.0-1.1); MONO % 8 % (0-9); NEUT # 3.8 x10^3uL (1.8-7.7); NEUT % 70 % (31-73); PLATELET COUNT 134 x10^3/uL (140-400); RED BLOOD COUNT 4.29 x10^6/uL (4.30-5.70); RED CELL DISTRIBUTION WIDTH 16.4 % (11.5-14.5); WHITE BLOOD COUNT 5.5 x10^3/uL (4.0-11.0)
[2018-11-18 15:59] LABS: ALBUMIN 3.5 g/dL (3.4-5.0); ALBUMIN/GLOBULIN RATIO 0.8 (1.0-1.7); CALCIUM 8.6 mg/dL (8.5-10.1); CREATININE 2.1 mg/dL (0.7-1.3); GFR 38.3; POTASSIUM 4.2 mmol/L (3.5-5.1); TOTAL BILIRUBIN 0.5 mg/dL (0.2-1.0); TOTAL PROTEIN 7.7 g/dL (6.4-8.2)
[2018-11-19 05:14] LABS: HEMOGLOBIN A1C 6.7 % (4.8-5.6)
[2018-11-19 13:04] LABS: FREE T4 1.05 ng/dL (0.76-1.46); THYROID STIM HORMONE (TSH) 2.561 uIU/mL (0.358-3.740)
== END | disposition home or self-care (01) ==
LOC: LAB 14:49
PROVIDERS: ATTEND Physician Assistant Medical
DX: E11.9 Type 2 diabetes mellitus without complications (principal)
CPT/HCPCS: 36415; 80053; 83036; 84439; 84443; 85025

== ENCOUNTER → 2018-11-18 | Outpatient (CLI) | payer OTHER ==
[2018-10-26 10:07] VITALS: BP 148/59
[2018-11-18 15:59] LABS: ALBUMIN 3.5 g/dL (3.4-5.0); CALCIUM 8.6 mg/dL (8.5-10.1); CREATININE 2.1 mg/dL (0.7-1.3); GFR 38.3; PHOSPHORUS 3.4 mg/dL (2.6-4.7); POTASSIUM 4.2 mmol/L (3.5-5.1)
[2018-11-19 04:06] LABS: CALCIUM PTH 8.8 mg/dL (8.6-10.2); CREATININE PTH 1.81 mg/dL (0.76-1.27); PTH INTACT 162 pg/mL (15-65)
[2018-11-20 05:11] LABS: TOTAL SERUM CREATININE 1.78 mg/dL (0.76-1.27); TOTAL URINE CREATININE 77.4 mg/dL (Not Estab.)
== END | disposition home or self-care (01) ==
LOC: LAB 14:43
PROVIDERS: ATTEND Nurse Practitioner Adult Health
DX: I12.9 Hypertensive chronic kidney disease with stage 1 through stage 4 chronic kidney disease, or unspecified chronic kidney disease (principal); E11.22 Type 2 diabetes mellitus with diabetic chronic kidney disease; N17.9 Acute kidney failure, unspecified; N18.9 Chronic kidney disease, unspecified; E55.9 Vitamin D deficiency, unspecified; D64.9 Anemia, unspecified
CPT/HCPCS: 36415; 80069; 82575; 83970

== ENCOUNTER 2018-11-21 14:33 | Inpatient (IN) | payer OTHER ==
[~2018-11-21] VITALS: Ht 172.7 cm; Wt 191.0 kg
[2018-11-21] VITALS (8 sets, daily range): BP systolic 109–206; BP diastolic 59–99
[~2018-11-21 14:33] MED LIST changes: -AMOX1TAB10 PO; -DOXY100C2 PO
[2018-11-21] MEDS ORDERED: IV NORMAL SALINE 1,000ML 1,000 ML IV ONE ×3 (14:45→16:00)
[2018-11-21 14:59] LABS: BASO % 1 % (0-3); EOS # 0.2 x10^3/uL (0.0-0.7); EOS % 3 % (0-3); HEMATOCRIT 38.3 % (39.0-53.0); HEMOGLOBIN 12.2 g/dL (13.0-17.5); LYMPH # 1.9 x10^3/uL (1.0-4.8); LYMPH % 27 % (24-48); MEAN CORPUSCULAR HEMOGLOBIN 27 pg (25-35); MEAN CORPUSCULAR HGB CONC 32 g/dL (31-37); MEAN CORPUSCULAR VOLUME 85 fL (79-100); MONO # 0.6 x10^3/uL (0.0-1.1); MONO % 9 % (0-9); NEUT # 4.4 x10^3uL (1.8-7.7); NEUT % 61 % (31-73); PLATELET COUNT 155 x10^3/uL (140-400); RED BLOOD COUNT 4.53 x10^6/uL (4.30-5.70); RED CELL DISTRIBUTION WIDTH 16.7 % (11.5-14.5); WHITE BLOOD COUNT 7.2 x10^3/uL (4.0-11.0)
[2018-11-21] MEDS ORDERED: IPRATRPIUM/ALBUTEROL 0.5/2.5MG 3 ML NEBU. NEB ONE (15:00)
[2018-11-21] MEDS ORDERED: DEXAMETHASONE SOD PHOS 10 MG/ML VIAL IV ONE (15:00)
[2018-11-21 15:10] LABS: BGAS PH 7.21 (7.35-7.46)
[2018-11-21 15:19] LABS: ALBUMIN 3.6 g/dL (3.4-5.0); ALBUMIN/GLOBULIN RATIO 0.8 (1.0-1.7); CALCIUM 8.5 mg/dL (8.5-10.1); CREATININE 2.3 mg/dL (0.7-1.3); GFR 34.5; POTASSIUM 3.7 mmol/L (3.5-5.1); TOTAL BILIRUBIN 0.4 mg/dL (0.2-1.0); TOTAL PROTEIN 8.1 g/dL (6.4-8.2)
--- NOTE | 2018-11-21 15:34 | EKG ---
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
--- NOTE | 2018-11-21 15:37 | RAD ---
PORTABLE CHEST 1V History: Dyspnea Comparison: October 26, 2018 Findings: Single view of the chest is submitted. Exam is limited due to motion and also attenuation by soft tissues. It is difficult to exclude hazy airspace opacity of the mid to inferior hemithoraces bilaterally although findings may be artifactual. There is again enlargement of the pericardial cardiac silhouette. No obvious pneumothorax is identified. It would be difficult to exclude small left pleural effusion on this exam. Impression: 1. Exam is limited as stated. There is appearance of hazy opacity of the mid to inferior hemithoraces bilaterally findings could be artifactual although underlying infiltrate or edema are not included. There is again enlargement of the pericardial cardiac silhouette. Electronically signed by: Tiago Arboleda MD (11/21/2018 3:34 PM) [facility]
--- NOTE | 2018-11-21 15:56 | PHYS DOC ---
Past History Past Medical History: Anemia, Asthma, CAD, CHF, Diabetes, High Cholesterol, Heart Disease, Hypertension, Renal Failure, Other Past Surgical History: Appendectomy, Cholecystectomy, Other Smoking: Non-smoker Alcohol Use: Sober Drug Use: None Adult General Chief Complaint Chief Complaint: SHORTNESS OF BREATH HPI HPI Patient is a 68 year old male with a history of COPD, CHF, and CKD who presents with increased SOB over the last 24 hours. History obtained from EMS due to patient being in respiratory distress upon arrival. Pt's O2 saturation was 68% when EMS arrived initially. EMS reports patient was in tripod position and appeared pale on exam. Pt was administered O2 via non-breather mask and a DuoNeb breathing treatment en route to the ED. Upon arrival patient was put on BIPAP. Patient is not on O2 at home. No other complaints were identified at this time. HPI limited due to respiratory distress. Review of Systems Review of Systems Constitutional: Denies fever or chills [] Eyes: Denies change in visual acuity, redness, or eye pain [] HENT: Denies nasal congestion or sore throat [] Respiratory: Reports shortness of breath Cardiovascular: Denies chest pain or palpitations GI: Denies abdominal pain, nausea, or vomiting Neurologic: Denies headache, focal weakness or sensory changes [] ROS limited due to respiratory distress Current Medications Current Medications Current Medications Medications (Trade) Dose Ordered Sig/Jax Start Time Stop Time Status Last Admin Dose Admin Albuterol/ Ipratropium (Duoneb) 3 ml 1X ONCE 11/21/18 15:00 11/21/18 15:01 DC 11/21/18 14:51 3 ML Dexamethasone Sodium Phosphate (Decadron) 10 mg 1X ONCE 11/21/18 15:00 11/21/18 15:01 DC 11/21/18 14:51 10 MG Sodium Chloride 1,000 ml @ 1,000 mls/hr 1X ONCE 11/21/18 14:45 11/21/18 14:45 DC Allergies Allergies Allergies Coded Allergies Type Severity Reaction Last Updated Verified No Known Drug Allergies 06/29/14 No Physical Exam Physical Exam Constitutional: Obese 68 yo male in respiratory distress. [] HENT: Normocephalic, atraumatic, oropharynx moist, no oral exudates, nose normal. [] Eyes: EOMI, conjunctiva normal, no discharge. [] Cardiovascular: Heart rate regular rhythm Lungs & Thorax: Crackles auscultated b/l in lower lobes, moderate respiratory distress. Abdomen: Soft, no tenderness Skin: Warm, clammy. [] Extremities: LE 2+ pitting edema up to knee b/l. Neurologic: Alert and oriented X 3, normal motor function, normal sensory function, no focal deficits noted. [] Psychologic: Affect normal, judgement normal, mood normal. [] Current Patient Data Vital Signs Vital Signs Date Time Temp Pulse Resp B/P (MAP) Pulse Ox O2 Delivery O2 Flow Rate FiO2 11/21/18 15:00 95 23 169/100 (123) 100 BiPAP/CPAP 11/21/18 14:34 97.8 15.0 Lab Results Laboratory Tests Test 11/21/18 14:35 11/21/18 14:45 White Blood Count 7.2 x10^3/uL (4.0-11.0) Red Blood Count 4.53 x10^6/uL (4.30-5.70) Hemoglobin 12.2 g/dL (13.0-17.5) L Hematocrit 38.3 % (39.0-53.0) L Mean Corpuscular Volume 85 fL (79-100) Mean Corpuscular Hemoglobin 27 pg (25-35) Mean Corpuscular Hemoglobin Concent 32 g/dL (31-37) Red Cell Distribution Width 16.7 % (11.5-14.5) H Platelet Count 155 x10^3/uL (140-400) Neutrophils (%) (Auto) 61 % (31-73) Lymphocytes (%) (Auto) 27 % (24-48) Monocytes (%) (Auto) 9 % (0-9) Eosinophils (%) (Auto) 3 % (0-3) Basophils (%) (Auto) 1 % (0-3) Neutrophils # (Auto) 4.4 x10^3uL (1.8-7.7) Lymphocytes # (Auto) 1.9 x10^3/uL (1.0-4.8) Monocytes # (Auto) 0.6 x10^3/uL (0.0-1.1) Eosinophils # (Auto) 0.2 x10^3/uL (0.0-0.7) Basophils # (Auto) 0.0 x10^3/uL (0.0-0.2) Sodium Level 144 mmol/L (136-145) Potassium Level 3.7 mmol/L (3.5-5.1) Chloride Level 106 mmol/L (98-107) Carbon Dioxide Level 28 mmol/L (21-32) Anion Gap 10 (6-14) Blood Urea Nitrogen 27 mg/dL (8-26) H Creatinine 2.3 mg/dL (0.7-1.3) H Estimated GFR (Cockcroft-Gault) 34.5 BUN/Creatinine Ratio 12 (6-20) Glucose Level 188 mg/dL (70-99) H Lactic Acid Level 2.5 mmol/L (0.4-2.0) H Calcium Level 8.5 mg/dL (8.5-10.1) Total Bilirubin 0.4 mg/dL (0.2-1.0) Aspartate Amino Transferase (AST) 15 U/L (15-37) Alanine Aminotransferase (ALT) 21 U/L (16-63) Alkaline Phosphatase 79 U/L (46-116) Creatine Kinase 225 U/L (39-308) Creatine Kinase MB (Mass) 2.5 ng/mL (0.0-3.6) Creatine Kinase MB Relative Index 1.1 % (0-4) Troponin I Quantitative < 0.017 ng/mL (0-0.055) ET-[id number]-Type Natriuretic Peptide 861 pg/mL (0-124) H Total Protein 8.1 g/dL (6.4-8.2) Albumin 3.6 g/dL (3.4-5.0) Albumin/Globulin Ratio 0.8 (1.0-1.7) L Blood pH 7.21 (7.35-7.46) L Blood Gas PCO2 67 mmHg (35-46) *H Blood Gas PO2 147 mmHg (80-100) H Blood Gas HCO3 27 mmol/L (21-28) Arterial Bld O2 Saturation (Calc) 99 % (92-99) FiO2 100 % EKG EKG @14:37 on 11/21/2018 Showed Sinus Tachycardia at 108bpm. Multiple PVC's, Increased ND interval, left atrial abnormality. No ST elevations.[] Radiology/Procedures Radiology/Procedures PROCEDURE: PORTABLE CHEST 1V PORTABLE CHEST 1V History: Dyspnea Comparison: October 26, 2018 Findings: Single view of the chest is submitted. Exam is limited due to motion and also attenuation by soft tissues. It is difficult to exclude hazy airspace opacity of the mid to inferior hemithoraces bilaterally although findings may be artifactual. There is again enlargement of the pericardial cardiac silhouette. No obvious pneumothorax is identified. It would be difficult to exclude small left pleural effusion on this exam. Impression: 1. Exam is limited as stated. There is appearance of hazy opacity of the mid to inferior hemithoraces bilaterally findings could be artifactual although underlying infiltrate or edema are not included. There is again enlargement of the pericardial cardiac silhouette. Electronically signed by: Tiago Arboleda MD (11/21/2018 3:34 PM) [facility] [] Course & Med Decision Making Course & Med Decision Making Mr. Don is a 69 yo male with a PMH of COPD, CHF and CKD presented with increased SOB over 24 hours and respiratory distress. Patient was placed on BIPAP upon arrival in the ED. Due to being SIRS positive (tachycardia, tachypnea) with a Lactic Acid of 2.5, and CXR concerning for infection vs fluid overload. Concern for possible infectious process. Given positive SIRS and presumed source of infection with elevated lactic acid= Severe sepsis criteria met. Patient administered 2L of NS according to ideal body weight. Empiric antibiotic coverage given with Zosyn and Vancomycin. Discussed with Dr. Douglas (PCP) who is in agreement with admission. Discussed findings and plan with patient and family, who acknowledge understanding and agreement. Dragon Disclaimer Dragon Disclaimer This electronic medical record was generated, in whole or in part, using a voice recognition dictation system. Departure Departure: Impression: Primary Impression: Severe sepsis Additional Impressions: COPD exacerbation Hypoxia Disposition: ADMITTED INPATIENT (ICU) Admitting Physician: Dave Douglas Condition: GUARDED Referrals: MINOR SHIRLEY MD (PCP) Scripts Doxycycline Hyclate (DOXYCYCLINE HYCLATE) 100 Mg Capsule 1 CAP PO BID for cellulitis for 7 Days, #14 CAP Prov: LEONILA COLMENAERS MD 11/25/18 Date and Time of Reassessment Date: November 21, 2018 Time: 16:39 Fluid Challenge Is the fluid challenge complet: No Blood Culture TIme: 14:35 Time Antibiotics Given: 16:07 Vital Signs Vital Signs: Vital Signs Date Time Temp Pulse Resp B/P (MAP) Pulse Ox O2 Delivery O2 Flow Rate FiO2 11/21/18 15:30 88 20 159/93 (115) 98 BiPAP/CPAP 11/21/18 14:34 97.8 15.0 Temperature Source: Temporal Artery Scan Respirations Respiratory Effort: Shortness of breath Respiratory Pattern: Gasping Cardiovascular Pulse Rhythm: Regular Heart: Nml S1, S2, no murmurs Lung Sounds Breath Sounds: Crackles Capillary Refil Capillary Refill: Lt Hand > 3 seconds Peripheral Pulse Pulse Location: Radial Pulse Strength: Bounding (3+) Pulse Assessment Method: Monitor Integumentary Skin: Warm Skin Moisture: Clammy Skin Turgor: Normal Skin Color: warm, edema Fingernail Color: WNL Critical Care Time Critical care time was 30 minutes which includes time at bedside, spent in discussion of patient's care with specialists and/or family members, with interpretation of laboratory and/or radiological studies and is exclusive of procedures. Problem Qualifiers JOSE F FAULKNER DO November 21, 2018 15:56
[2018-11-21] MEDS ORDERED: VANCOMYCIN IV ONE (16:00)
[2018-11-21] MEDS ORDERED: PIPERACILLIN/TAZOBACTAM 4.5 GM in IV NORMAL SALINE 50ML 50 ML IV ONE (16:00)
[2018-11-21] MEDS ORDERED: NORMAL SALINE IV ONE (16:00)
[2018-11-21] MEDS ORDERED: PIPERACILLIN/TAZOBACTAM 4.5 GM VIAL IV ONE (16:04)
[2018-11-21] MEDS ORDERED: IV NORMAL SALINE 50ML 50 ML ONE (16:04)
[2018-11-21 16:13] LABS: INFLUENZA A PATIENT NEGATIVE (NEGATIVE); INFLUENZA B PATIENT NEGATIVE (NEGATIVE)
[2018-11-21] MEDS ORDERED: VANCOMYCIN 2 GM in IV NORMAL SALINE 500ML 500 ML IV ONE (16:15)
[2018-11-21] MEDS ORDERED: VANCOMYCIN 1 GM VIAL. ONE (16:19)
[2018-11-21] MEDS ORDERED: IV NORMAL SALINE 500ML 0 ML ONE (16:19)
[2018-11-21] MEDS ORDERED: DEXTROSE 50% 25 GM / 50ML DISP.SYRIN. IV PRN (16:30)
[2018-11-21] MEDS ORDERED: ONDANSETRON PF 4 MG/2 ML VIAL. IV PRN (16:30)
[2018-11-21] MEDS: INSULIN LISPRO 300 UNITS/3 ML INSULN.PEN. SQ SCH (17:00)
[2018-11-21] MEDS ORDERED: ASPIRIN 325 MG TABLET PO ONE (17:15)
[2018-11-21] MEDS ORDERED: FUROSEMIDE 40 MG/4 ML VIAL IVP ONE (17:30)
--- NOTE | 2018-11-21 17:30 | NUR ---
The patient, JULIO CESAR KRAUSE, 68 y/o, M admitted by CECILIA PEARCE MD, was given written information regarding hospital policies, unit procedures and contact persons. Valuables were checked and left in room. Patient arrived on BIPAP 60% to ICU 4. Appears in respiratory distress, audible wheezing. Lung sounds crackles x 4. Patient tachypnic and coughing. Dr. Pearce notified of concern of possible fluid overload, orders of Lasix IVP stat. Bladder scan ordered. After medication given and BIPAP placement, BP decreased and appears to be breathing better. Dr. Pearce aware of arrival to unit at this time. See vitals flow sheet.
--- NOTE | 2018-11-21 17:59 | NUR ---
Bladder scan completed, 110ml noted. Nurse unable to complete Cham[place] Cath insertion due to prostate area being edematous. Girlfriend stated that when she assessed site this morning, she was able to see area but not now. Dr. Douglas here at this time.
--- NOTE | 2018-11-21 18:00 | NUR ---
Allergies and reactions y INR BUN Cr Platelets y Blood culture done blood culture results y Order Verified y Consent signed y Previous PICC placement y Past Medical/Surgical history and current diagnosis reviewed Patient Medical /Surgical History Related to PICC line placement None Special considerations for PICC line placement None PICC placement indication Caustic medication class drug usage, terminal system operator antibiotic usage, Multiple/ Frequent blood draws Name of PICC Nurse Alexus dahl RN BSN CMSRN [facility]
[2018-11-21] MEDS ORDERED: PIP/TAZO PER PHARMACY MC PRN ×2 (18:15)
[2018-11-21] MEDS ORDERED: FUROSEMIDE INJ 100 MG in IV NORMAL SALINE 100ML 90 ML IV PRN (19:00)
[2018-11-21] MEDS ORDERED: ALBUTEROL SULFATE 2.5 MG/3 ML NEBU. NEB PRN (19:15)
[2018-11-21] MEDS ORDERED: IPRATRPIUM/ALBUTEROL 0.5/2.5MG 3 ML NEBU. NEB SCH (20:00)
[2018-11-21] MEDS ORDERED: NON FORMULARY ITEM (Albuterol Sulfate (Albuterol Sulfate Conc Neb Soln) 1 VIAL) NEB SCH (20:00)
--- NOTE | 2018-11-21 20:05 | NUR ---
Procedure: Following complete explanation of the PICC procedure including the indications, risks, and potential complications, informed consent was obtained. The possibility for infection was discussed along with signs, symptoms, and prevention. All the questions were answered. IV Device Protocol was used. Written and verbal patient education was provided. Hand hygiene performed. Standardized central line checklist was utilized. The patient was placed in the supine position, the arm was prepped with chlorhexidine and patient draped with maximum sterile barrier. 3 mL 1% lidocaine was infiltrated into the skin to provide local anesthesia. A thorough assessment of Left upper extremity completed. Using real-time ultrasound guidance and standardized micro puncture set,the bacilic vein was punctured and a peel away sheath was placed using the modified Seldinger technique. A tip location device was used to ensure adequate catheter placement. The catheter was secured using a securement device and an antimicrobial patch was applied directly on the insertion site followed by a transparent dressing. All ports withdraw blood and flush without resistance. Patient tolerated the procedure without apparent complication(s). Double Lumen Power PICC placement successful and uncomplicated. Placement verified by EKG tip confirmation system. Complications:NONE Alexus dahl MANAGER RECRUITING CMSRN [facility] 51cm long and 1 cm out.
[2018-11-21] MEDS: IPRATRPIUM/ALBUTEROL 0.5/2.5MG 3 ML NEBU. NEB SCH (20:22)
[2018-11-21] MEDS: VANCOMYCIN PER PHARMACY MC PRN (20:27)
--- NOTE | 2018-11-21 20:28 | NUR ---
Pharmacy Vancomycin Dosing Note S:Consulted to monitor and dose vancomycin started . O:JIMIJULIO CESAR is a 68 year old M with Sepsis, . Height: 5 feet, 8 inches Weight: 193.370115 kg [place] Body Weight: Adjusted Body Weight: Dosing Weight: Actual Other Antibiotics: ZOSYN 4.5GRAM Q6HRS LABS: Last BUN: 27 Last Creatinine: 2.3 Creatinine Clearance: Last WBC: 7.2 Last Procalcitonin: Tmax (past 24 hours): Microbiology: I/O: Drug Levels: Last level: on at Last dose given 11/21/18 at 1846 Vancomycin Dosing: Loading Dose: 2000 mg x1 Dosing Weight: Actual Target Trough: 15-20 A: Based on: P: 1. Begin Vancomycin 2000 mg IV q24h 2. Follow up Trough level on 11/23/18 at 1830 3. Pharmacy will continue to monitor, follow and adjust therapy as needed. OTIS DELATORRE RPH, 11/21/182027
[2018-11-21] MEDS: POTASSIUM CHLORIDE 10 MEQ TABLET.ER. PO SCH (20:46)
[2018-11-21] MEDS: SIMVASTATIN 20 MG TABLET PO SCH (20:47)
[2018-11-21 20:57] LABS: BGAS PH 7.26 (7.35-7.46)
[2018-11-22] VITALS (23 sets, daily range): BP systolic 109–158; BP diastolic 49–81
[2018-11-22] MEDS ORDERED: NON FORMULARY ITEM (Ipratropium/Albuterol Sulfate (Combivent Respimat Inhal) 1 PUFF) INH SCH
--- NOTE | 2018-11-22 00:04 | HP ---
ADMIT DATE: 11/21/2018 HISTORY OF PRESENT ILLNESS: The patient is a 68-year-old -[place] gentleman, who came in through the Emergency Room. Apparently in the last day prior to admission, he had increased shortness of breath and was in respiratory distress when he came in through the Emergency Room with oxygen saturation of only 68%. EMS brought him in. The patient appeared basically pale with marked respiratory distress. He was placed on a BiPAP to maintain sufficient oxygen saturation. The patient basically is hard to talk since he has his BiPAP on, but denies any chest pain and denies any other problems at the present time except for the trouble he is having, severe breathing problems. The patient was admitted for further evaluation of his acute respiratory distress, failure, possible acute on top of chronic diastolic heart failure. PAST MEDICAL SURGERY: Nose surgery, congestive heart failure, hypercholesterolemia, hypertension, asthma, abdominal hernia repair x 2, appendectomy, cholecystectomy, obesity, GERD, renal disease, orthopedic surgery to the carpal tunnel, anemia. VACCINATION: Apparently, he is up to date on pneumococcal. FAMILY HISTORY: Positive for prostate cancer in father and family members with diabetes. ALLERGIES: No known drug allergies. MEDICATIONS: Include DuoNeb treatments, albuterol p.r.n., simvastatin 80, Norvasc 10 mg daily, potassium chloride 10 mEq b.i.d., furosemide 40 mg daily, Prilosec 40 mg daily, prednisone 50 mg daily, Actos 30 mg daily. ALLERGIES: No known allergies. The patient is a full code. SOCIAL HISTORY: The patient is , has 2 sons, one of them lives with him. He quit smoking in 1979. Quit drinking alcohol about 14 years ago. He is retired from [employer]. REVIEW OF SYSTEMS: The patient basically aside from his breathing problem, denies chest pain. Denies abdominal pain. Denies any melena, hematochezia, or hematemesis. Neurologically, he denies any other problems. He does have some significant venous stasis with severe thickening of the lower extremities with possible infection to the inside of the left lower leg. PHYSICAL EXAMINATION: GENERAL: This is a very pleasant gentleman, morbidly obese. VITAL SIGNS: Blood pressure 169/100, respiratory rate 23, pulse 95 to 112, temperature afebrile. He is on 15 liters and 60% on BiPAP, CPAP to 92%, respiratory rate 26. The patient; otherwise, has CPAP machine on. HEENT: Otherwise, the head appears basically unremarkable. Atraumatic, normocephalic. EYES: PERRLA. LUNGS: Show coarse breath sounds, rales and rhonchi noted from the upper to lower lobes bilaterally. CARDIOVASCULAR: Tachycardic. ABDOMEN: Soft, markedly protuberant, fairly firm. There are some faint bowel sounds. EXTREMITIES: As noted has significant thickening from venous stasis to his legs with crustiness and nodular type of skin deformities as well as possible drainage to the back side of the left lower leg. LABORATORY DATA: The patient's labs demonstrate sodium and potassium 144 and 3.7, BUN and creatinine 27 and 2.3, glucose 188. Lactic acid 2.5. Troponin negative. BNP was only 861, although it seems worse now. White count 7.2, hemoglobin and hematocrit 12 and 38. IMAGING: The patient's chest x-ray shows limited because of the patient's habitus, opacity, mid to inferior hemothoraces, bilateral findings artifactual, underlying infiltrate or edema not excluded. There is enlargement of the pericardial silhouette. Apparently, the patient had previous echocardiograms in the past last year and they noted at that time that he had a 55-60% ejection fraction, although he did have grade 1 abnormal relaxation pattern. IMPRESSION: Therefore of sepsis, acute respiratory failure with hypoxia, cellulitis to the legs, severe venous stasis, chronic kidney disease stage 3, type 2 diabetes, extreme morbid obesity with a BMI greater than 40, acute on top of chronic congestive heart failure. The patient continued to be monitored carefully, make further evaluation on him. Continue on IV antibiotic therapy and Zosyn and vancomycin as well as some IV Lasix as he does appear to be fluid overloaded at the present time. The patient continued to be monitored carefully, make further evaluation on him as indicated here in the ICU. CECILIA PEARCE MD DR: TURNER/gaurav JOB#: [id number] / [id number]
[2018-11-22] MEDS: PIPERACILLIN/TAZOBACTAM 4.5 GM in IV NORMAL SALINE 50ML 50 ML IV SCH ×4 (01:14→18:06)
[2018-11-22] MEDS: IPRATRPIUM/ALBUTEROL 0.5/2.5MG 3 ML NEBU. NEB SCH ×4 (04:50→20:51)
[2018-11-22 05:59] LABS: BASO % 0 % (0-3); EOS % 0 % (0-3); HEMATOCRIT 33.7 % (39.0-53.0); HEMOGLOBIN 10.7 g/dL (13.0-17.5); LYMPH # 0.6 x10^3/uL (1.0-4.8); LYMPH % 7 % (24-48); MEAN CORPUSCULAR HEMOGLOBIN 27 pg (25-35); MEAN CORPUSCULAR HGB CONC 32 g/dL (31-37); MEAN CORPUSCULAR VOLUME 84 fL (79-100); MONO # 0.4 x10^3/uL (0.0-1.1); MONO % 5 % (0-9); NEUT # 7.4 x10^3uL (1.8-7.7); NEUT % 88 % (31-73); PLATELET COUNT 145 x10^3/uL (140-400); RED BLOOD COUNT 4.03 x10^6/uL (4.30-5.70); RED CELL DISTRIBUTION WIDTH 16.4 % (11.5-14.5); WHITE BLOOD COUNT 8.3 x10^3/uL (4.0-11.0)
[2018-11-22 06:03] LABS: C REACTIVE PROTEIN 19.8 mg/L (0-3.3); CALCIUM 8.2 mg/dL (8.5-10.1); CREATININE 2.2 mg/dL (0.7-1.3); GFR 36.3; POTASSIUM 4.6 mmol/L (3.5-5.1)
--- NOTE | 2018-11-22 08:13 | RAD ---
EXAM: Left lower extremity arterial Doppler sonogram. HISTORY: Arterial insufficiency. TECHNIQUE: Cano scale and color Doppler sonographic imaging of the lower extremity arteries with spectral waveform analysis was performed. COMPARISON: None. FINDINGS: The exam is limited due to body habitus. The left lower extremity arteries are only seen with color Doppler. There is an elevated peak systolic velocity within the proximal left superficial femoral artery, measuring 135 cm/s. The proximal posterior tibial artery and peroneal artery and anterior tibial artery are not seen. There is normal color flow and there are normal spectral waveforms within the remainder of the left lower extremity arteries. IMPRESSION: 1. Significantly limited exam due to patient body habitus. The proximal posterior tibial artery, peroneal artery and anterior tibial artery not seen. This may be due to study limitations, low flow or occlusion. 2. Elevated peak systolic velocity within the proximal left superficial femoral artery, suggesting hemodynamically significant stenosis. The remainder of the visualized lower extremity arteries demonstrate normal color flow and peak systolic velocities. Electronically signed by: Fay Aguirre MD (11/22/2018 8:11 AM) [facility]
[2018-11-22] MEDS: PANTOPRAZOLE 40 MG TABLET. PO SCH (08:19)
[2018-11-22] MEDS: predniSONE 20 MG TABLET PO SCH (08:19)
[2018-11-22] MEDS: INSULIN LISPRO 300 UNITS/3 ML INSULN.PEN. SQ SCH ×3 (08:20→17:03)
[2018-11-22] MEDS: PIOGLITAZONE 15 MG TABLET. PO SCH (08:58)
[2018-11-22] MEDS: POTASSIUM CHLORIDE 10 MEQ TABLET.ER. PO SCH ×2 (08:59→21:11)
[2018-11-22] MEDS: amLODIPine BESYLATE 10 MG TABLET PO SCH (08:59)
--- NOTE | 2018-11-22 13:39 | RAD ---
EXAM: Bilateral lower extremity venous Doppler sonogram. HISTORY: Elevated d-dimer. Pain and swelling. TECHNIQUE: Cano scale and color Doppler sonographic evaluation of the bilateral lower extremity veins with spectral waveform analysis was performed. FINDINGS: The exam is limited due to patient body habitus. The bilateral common femoral veins are patent and compressible. The bilateral proximal superficial femoral veins are not adequately seen for compression. However, there is normal color flow within these vessels. The bilateral mid and distal superficial femoral veins and peroneal veins are not seen. The popliteal veins and posterior tibial veins are only seen with color Doppler. IMPRESSION: Significantly limited exam due to patient body habitus. The mid and distal superficial femoral veins and peroneal veins are not adequately assessed. There is normal color flow within the remainder of the lower extremity veins. Electronically signed by: Fay Aguirre MD (11/22/2018 1:36 PM) [id number]
[2018-11-22 13:54] LABS: BILIRUBIN,URINE NEG (NEG); CLARITY,URINE CLOUDY; COLOR,URINE YELLOW; GLUCOSE,URINE NEG (NEG); NITRITE,URINE NEG (NEG); UROBILINOGEN,URINE 0.2 mg/dL (0.2 mg/dL); WBC,URINE OCC /HPF (0-4)
[2018-11-22 13:55] LABS: BACTERIA,URINE 0 /HPF (0-FEW); HYALINE CASTS, URINE OCC /HPF; SQUAMOUS EPITHELIAL CELL,UR OCC /LPF
[2018-11-22] MEDS: HEPARIN for SUB-Q USE 5,000 UNIT/ML VIAL. SQ SCH ×2 (13:58→21:13)
--- NOTE | 2018-11-22 16:11 | PDOC2 ---
CONSULT Date of Admission DATE: 11/22/18 TIME: 16:02 Reason for Consult: Heart failure Referring Physician: Dr. Douglas Chief Complaint Shortness of breath Source: Chart review, Patient Problem List Problems Medical Problems: (1) COPD exacerbation Status: Acute (2) Hypoxia Status: Acute (3) Severe sepsis Status: Acute History of Present Illness The patient is a 68-year-old male who was admitted through the emergency room room yesterday for one to 2 days of increasing shortness of breath. Chest x-ray showed haziness in the bases. EKG showed a sinus tachycardia with no acute ischemic changes. Patient has an extensive past medical history as noted below. He initially was treated with diuresis and BiPAP and is feeling much better today. On examination today he reports feeling well. Vital signs are normal. He is in a sinus rhythm. Other workups included lower extremity venous ultrasound that showed no evidence of DVT but is admittedly difficult study. Also lower extremity arterial angiogram was technically difficult study that showed up possible proximal significant lesion in the left SFA. Patient's creatinine is 2.2. Troponin has peaked at 0.068. He denies any chest pain. Cardiovascular: CAD, CHF, HTN, hyperipidemia Pulmonary: COPD Renal/: Chronic renal insuff Endocrine: Diabetes Past Surgical History: Appendectomy, Cholecystectomy Family History: Diabetes Smoke: Quit ALCOHOL: other (stopped greater than 10 years ago) Current Medications Current Medications Albuterol/ Ipratropium (Duoneb) 3 ml 1X ONCE NEB Last administered on 11/21/18at 14:51; Start 11/21/18 at 15:00; Stop 11/21/18 at 15:01; Status DC Dexamethasone Sodium Phosphate (Decadron) 10 mg 1X ONCE IV Last administered on 11/21/18at 14:51; Start 11/21/18 at 15:00; Stop 11/21/18 at 15:01; Status DC Sodium Chloride 1,000 ml @ 1,000 mls/hr 1X ONCE IV ; Start 11/21/18 at 14:45; Stop 11/21/18 at 14:45; Status DC Piperacillin Sod/ Tazobactam Sod 4.5 gm/Sodium Chloride 50 ml @ 100 mls/hr 1X ONCE IV Last administered on 11/21/18at 16:07; Start 11/21/18 at 16:00; Stop 11/21/18 at 16:29; Status DC Sodium Chloride 1,000 ml @ 1,000 mls/hr 1X ONCE IV Last administered on 11/21/18at 16:07; Start 11/21/18 at 16:00; Stop 11/21/18 at 16:59; Status DC Sodium Chloride 1,000 ml @ 1,000 mls/hr 1X ONCE IV Last administered on 11/21/18at 16:22; Start 11/21/18 at 16:00; Stop 11/21/18 at 16:59; Status DC Vancomycin HCl 2.75 gm/Sodium Chloride 500 ml @ 250 mls/hr 1X ONCE IV ; Start 11/21/18 at 16:00; Stop 11/21/18 at 16:05; Status DC Sodium Chloride 50 ml @ As Directed STK-MED ONCE .ROUTE ; Start 11/21/18 at 16:04; Stop 11/21/18 at 16:05; Status DC Piperacillin Sod/ Tazobactam Sod (Zosyn) 4.5 gm STK-MED ONCE IV ; Start 11/21/18 at 16:04; Stop 11/21/18 at 16:05; Status DC Vancomycin HCl 2 gm/Sodium Chloride 500 ml @ 250 mls/hr 1X ONCE IV Last administered on 11/21/18at 18:46; Start 11/21/18 at 16:15; Stop 11/21/18 at 18:14; Status DC Sodium Chloride 0 ml @ As Directed STK-MED ONCE .ROUTE ; Start 11/21/18 at 16:19; Stop 11/21/18 at 16:20; Status DC Vancomycin HCl (Vancomycin) 1 gm STK-MED ONCE .ROUTE ; Start 11/21/18 at 16:19; Stop 11/21/18 at 16:20; Status DC Ondansetron HCl (Zofran) 4 mg PRN Q4HRS PRN IV NAUSEA/VOMITING; Start 11/21/18 at 16:30; Stop 11/22/18 at 16:29 Albuterol/ Ipratropium (Duoneb) 3 ml RTQID NEB ; Start 11/21/18 at 20:00; Stop 11/21/18 at 20:00; Status DC Insulin Human Lispro (HumaLOG) 0-5 UNITS TIDWMEALS SQ Last administered on 11/22/18at 12:10; Start 11/21/18 at 17:00 Dextrose (Dextrose 50%-Water Syringe) 12.5 gm PRN Q15MIN PRN IV SEE COMMENTS; Start 11/21/18 at 16:30 Aspirin (Heather Aspirin) 325 mg 1X ONCE PO Last administered on 11/21/18at 16:51; Start 11/21/18 at 17:15; Stop 11/21/18 at 17:16; Status DC Furosemide (Lasix) 40 mg 1X ONCE IVP Last administered on 11/21/18at 17:25; Start 11/21/18 at 17:30; Stop 11/21/18 at 17:31; Status DC Albuterol/ Ipratropium (Duoneb) 3 ml RTQID NEB Last administered on 11/22/18 09:49; Start 11/21/18 at 20:00 Furosemide 100 mg/ Sodium Chloride 100 ml @ 5 mls/hr CONT PRN IV SEE I/O RECORD Last administered on 11/22/18at 15:05; Start 11/21/18 at 19:00 Non-Formulary Medication (Albuterol Sulfate (Albuterol Sulfate Conc Neb Soln)) 1 vial Q4HRS NEB ; Start 11/21/18 at 20:00; Stop 11/21/18 at 20:00; Status DC Amlodipine Besylate (Norvasc) 10 mg DAILY PO Last administered on 11/22/18 08:59; Start 11/22/18 at 09:00 Non-Formulary Medication (Ipratropium/ Albuterol Sulfate (Combivent Respimat Inhal)) 1 puff Q6HRS INH ; Start 11/22/18 at 00:00; Stop 11/22/18 at 00:00; Status DC Pantoprazole Sodium (Protonix) 40 mg DAILYAC PO Last administered on 11/22/18 08:19; Start 11/22/18 at 07:30 Pioglitazone HCl (Actos) 30 mg DAILY PO Last administered on 11/22/18 08:58; Start 11/22/18 at 09:00 Potassium Chloride (Klor-Con) 10 meq BID PO Last administered on 11/22/18 08:59; Start 11/21/18 at 21:00 Prednisone (Prednisone) 50 mg DAILYWBKFT PO Last administered on 5/4/19at 08:19; Start 11/22/18 at 08:00 Simvastatin (Zocor) 80 mg HS PO Last administered on 11/21/18at 20:47; Start 11/21/18 at 21:00 Vancomycin HCl (Vanco Per Pharmacy) 1 each PRN DAILY PRN MC SEE COMMENTS Last administered on 11/21/18at 20:27; Start 11/21/18 at 18:15 Piperacillin Sod/ Tazobactam Sod (Zosyn Per Pharmacy) 1 each PRN DAILY PRN MC SEE COMMENTS; Start 11/21/18 at 18:15 Piperacillin Sod/ Tazobactam Sod (Zosyn Per Pharmacy) 1 each PRN DAILY PRN MC SEE COMMENTS; Start 11/21/18 at 18:15; Stop 11/21/18 at 18:40; Status DC Piperacillin Sod/ Tazobactam Sod 4.5 gm/Sodium Chloride 50 ml @ 100 mls/hr Q6HRS IV Last administered on 11/22/18at 12:09; Start 11/22/18 at 00:00 Albuterol Sulfate (Ventolin) 2.5 mg PRN Q4HRS PRN NEB SHORTNESS OF BREATH; Start 11/21/18 at 19:15 Vancomycin HCl 2 gm/Sodium Chloride 500 ml @ 250 mls/hr Q24H IV ; Start 11/22/18 at 19:00 Vancomycin HCl (Vancomycin Trough Level) 1 each 1X ONCE MC ; Start 11/23/18 at 18:30; Stop 11/23/18 at 18:31 Heparin Sodium (Porcine) (Heparin Sodium) 5,000 unit Q8HRS SQ Last administered on 11/22/18at 13:58; Start 11/22/18 at 14:00 Lactobacillus Rhamnosus (Culturelle) 1 cap BID PO ; Start 11/22/18 at 21:00 Active Scripts Active Albuterol Sulfate Conc Neb Soln (Albuterol Sulfate) 2.5 Mg/0.5 Ml Vial.neb 1 Vial NEB Q4HRS Prednisone 50 Mg Tablet 1 Tab PO DAILY Combivent Respimat Inhal (Ipratropium/Albuterol Sulfate) 4 Gm Aer.w.adap 1 Puff INH Q6HRS Reported Actos (Pioglitazone Hcl) 30 Mg Tablet 30 Mg PO DAILY LAST DOSE GIVEN: DATE: TIME: NEXT DOSE DUE: DATE: TIME: Potassium Chloride 10 Meq Tablet.er 10 Meq PO BID LAST DOSE GIVEN: DATE: TIME: NEXT DOSE DUE: DATE: TIME: Amlodipine Besylate 10 Mg Tablet 10 Mg PO DAILY LAST DOSE GIVEN: DATE: TIME: NEXT DOSE DUE: DATE: TIME: Omeprazole 40 Mg Capsule.dr 40 Mg PO BID LAST DOSE GIVEN: DATE: TIME: NEXT DOSE DUE: DATE: TIME: Lasix (Furosemide) 40 Mg Tablet 40 Mg PO DAILY LAST DOSE GIVEN: DATE: TIME: NEXT DOSE DUE: DATE: TIME: Simvastatin 80 Mg Tablet 80 Mg PO QHS LAST DOSE GIVEN: DATE: TIME: NEXT DOSE DUE: DATE: TIME: Allergies: Coded Allergies: No Known Drug Allergies (Unverified , 06/29/14) Respiratory: YES: Shortness of breath, SOB with excertion General: Other (the patient is in minimal distress.) HEENT: Atraumatic Lungs: Other (mildly decreased breath sounds) Heart: Regular rate Abdomen: Normal bowel sounds Extremities: Other (severe bilateral lower extremity edema.) VITALS Vital Signs Date Time Temp Pulse Resp B/P (MAP) Pulse Ox O2 Delivery O2 Flow Rate FiO2 11/22/18 14:30 88 19 140/58 (85) 97 BiPAP/CPAP 11/22/18 13:36 99.3 11/22/18 09:51 3.0 Labs Laboratory Tests Test 11/21/18 14:35 11/21/18 14:45 11/21/18 15:26 11/21/18 19:50 White Blood Count 7.2 x10^3/uL (4.0-11.0) Red Blood Count 4.53 x10^6/uL (4.30-5.70) Hemoglobin 12.2 g/dL (13.0-17.5) Hematocrit 38.3 % (39.0-53.0) Mean Corpuscular Volume 85 fL (79-100) Mean Corpuscular Hemoglobin 27 pg (25-35) Mean Corpuscular Hemoglobin Concent 32 g/dL (31-37) Red Cell Distribution Width 16.7 % (11.5-14.5) Platelet Count 155 x10^3/uL (140-400) Neutrophils (%) (Auto) 61 % (31-73) Lymphocytes (%) (Auto) 27 % (24-48) Monocytes (%) (Auto) 9 % (0-9) Eosinophils (%) (Auto) 3 % (0-3) Basophils (%) (Auto) 1 % (0-3) Neutrophils # (Auto) 4.4 x10^3uL (1.8-7.7) Lymphocytes # (Auto) 1.9 x10^3/uL (1.0-4.8) Monocytes # (Auto) 0.6 x10^3/uL (0.0-1.1) Eosinophils # (Auto) 0.2 x10^3/uL (0.0-0.7) Basophils # (Auto) 0.0 x10^3/uL (0.0-0.2) Sodium Level 144 mmol/L (136-145) Potassium Level 3.7 mmol/L (3.5-5.1) Chloride Level 106 mmol/L (98-107) Carbon Dioxide Level 28 mmol/L (21-32) Anion Gap 10 (6-14) Blood Urea Nitrogen 27 mg/dL (8-26) Creatinine 2.3 mg/dL (0.7-1.3) Estimated GFR (Cockcroft-Gault) 34.5 BUN/Creatinine Ratio 12 (6-20) Glucose Level 188 mg/dL (70-99) Lactic Acid Level 2.5 mmol/L (0.4-2.0) 0.8 mmol/L (0.4-2.0) Calcium Level 8.5 mg/dL (8.5-10.1) Total Bilirubin 0.4 mg/dL (0.2-1.0) Aspartate Amino Transf (AST/SGOT) 15 U/L (15-37) Alanine Aminotransferase (ALT/SGPT) 21 U/L (16-63) Alkaline Phosphatase 79 U/L (46-116) Creatine Kinase 225 U/L (39-308) Creatine Kinase MB (Mass) 2.5 ng/mL (0.0-3.6) Creatine Kinase MB Relative Index 1.1 % (0-4) Troponin I Quantitative < 0.017 ng/mL (0-0.055) DW-Uvn-B-Type Natriuretic Peptide 861 pg/mL (0-124) Total Protein 8.1 g/dL (6.4-8.2) Albumin 3.6 g/dL (3.4-5.0) Albumin/Globulin Ratio 0.8 (1.0-1.7) Blood Gas pH 7.21 (7.35-7.46) Blood Gas PCO2 67 mmHg (35-46) Blood Gas PO2 147 mmHg (80-100) Blood Gas HCO3 27 mmol/L (21-28) Arterial Bld O2 Saturation (Calc) 99 % (92-99) FiO2 100 % Influenza Type A (Rapid) Negative (NEGATIVE) Influenza Type B (Rapid) Negative (NEGATIVE) Test 11/21/18 20:30 11/21/18 23:59 11/22/18 05:25 11/22/18 07:30 Blood Gas pH 7.26 (7.35-7.46) Blood Gas PCO2 58 mmHg (35-46) Blood Gas PO2 117 mmHg (80-100) Blood Gas HCO3 26 mmol/L (21-28) Arterial Bld O2 Saturation (Calc) 98 % (92-99) FiO2 60 % Troponin I Quantitative 0.079 ng/mL (0-0.055) 0.068 ng/mL (0-0.055) Procalcitonin 0.15 ng/mL (0.00-0.10) White Blood Count 8.3 x10^3/uL (4.0-11.0) Red Blood Count 4.03 x10^6/uL (4.30-5.70) Hemoglobin 10.7 g/dL (13.0-17.5) Hematocrit 33.7 % (39.0-53.0) Mean Corpuscular Volume 84 fL (79-100) Mean Corpuscular Hemoglobin 27 pg (25-35) Mean Corpuscular Hemoglobin Concent 32 g/dL (31-37) Red Cell Distribution Width 16.4 % (11.5-14.5) Platelet Count 145 x10^3/uL (140-400) Neutrophils (%) (Auto) 88 % (31-73) Lymphocytes (%) (Auto) 7 % (24-48) Monocytes (%) (Auto) 5 % (0-9) Eosinophils (%) (Auto) 0 % (0-3) Basophils (%) (Auto) 0 % (0-3) Neutrophils # (Auto) 7.4 x10^3uL (1.8-7.7) Lymphocytes # (Auto) 0.6 x10^3/uL (1.0-4.8) Monocytes # (Auto) 0.4 x10^3/uL (0.0-1.1) Eosinophils # (Auto) 0.0 x10^3/uL (0.0-0.7) Basophils # (Auto) 0.0 x10^3/uL (0.0-0.2) D-Dimer (Do) 1.45 mg/L (0.00-0.50) Sodium Level 142 mmol/L (136-145) Potassium Level 4.6 mmol/L (3.5-5.1) Chloride Level 106 mmol/L (98-107) Carbon Dioxide Level 28 mmol/L (21-32) Anion Gap 8 (6-14) Blood Urea Nitrogen 29 mg/dL (8-26) Creatinine 2.2 mg/dL (0.7-1.3) Estimated GFR (Cockcroft-Gault) 36.3 Glucose Level 168 mg/dL (70-99) Calcium Level 8.2 mg/dL (8.5-10.1) C-Reactive Protein 19.8 mg/L (0-3.3) Glucose (Fingerstick) 182 mg/dL (70-99) Test 11/22/18 11:32 11/22/18 12:25 Glucose (Fingerstick) 180 mg/dL (70-99) Urine Collection Type Unknown Urine Color Yellow Urine Clarity Cloudy Urine pH 5.0 Urine Specific [place] 1.015 Urine Protein Neg (NEG-TRACE) Urine Glucose (UA) Neg mg/dL (NEG) Urine Ketones (Stick) Neg mg/dL (NEG) Urine Blood Trace (NEG) Urine Nitrite Neg (NEG) Urine Bilirubin Neg (NEG) Urine Urobilinogen Dipstick 0.2 mg/dL (0.2 mg/dL) Urine Leukocyte Esterase Neg (NEG) Urine RBC 1-2 /HPF (0-2) Urine WBC Occ /HPF (0-4) Urine Squamous Epithelial Cells Occ /LPF Urine Bacteria 0 /HPF (0-FEW) Urine Hyaline Casts Occ /HPF Urine Mucus Slight /LPF Images Chest x-ray with bilateral haziness. Lower extremity venous ultrasound with no definitive DVT. Lower extremity arterial ultrasound with a proximal proximal lesion in the left SFA. Assessment/Plan 1. Acute respiratory insufficiency. Contributing factors of COPD, diastolic heart failure and superimposed morbid obesity. Patient is feeling much better today. Previous workups included an echocardiogram on 05/07/18 with an ejection fraction of 55% with mild mitral regurgitation. Will continue on present medical treatment. Monitoring renal function. 2. Acute on chronic diastolic heart failure. Mild diuresis with monitoring of lab as above. Minimally elevated troponin at 0.068 which is consistent with demand ischemia. No acute ischemic EKG changes. Cardiac MPI testing on 05/12/18 showed no reversible ischemia, a fixed inferior defect and ejection fraction is 50%. 3. Chronic kidney disease. Creatinine elevated at 2.2. Continuing to follow lab. 4. Hypertension. Patient's blood pressures under reasonable control. Continue present treatments. 5. Hyperlipidemia. Continue present medication. 6. Severe lower extremity chronic edema. This is been a long-term chronic problem for the patient. At this time will continue present treatments. 7. Diabetes mellitus. As per the primary service. 8. Extreme morbid obesity. Thank you for allowing us to participate in the care of your patient. MAULIK DASH MD November 22, 2018 16:11
[2018-11-22] MEDS: VANCOMYCIN 2 GM in IV NORMAL SALINE 500ML 500 ML IV SCH (19:20)
[2018-11-22] MEDS: SIMVASTATIN 20 MG TABLET PO SCH (21:10)
[2018-11-22] MEDS: LACTOBACILLUS RHAMNOSUS GG 1 CAPSULE. PO SCH (21:11)
[2018-11-22 21:18] LABS: BGAS PH 7.36 (7.35-7.46)
[2018-11-22] MEDS ORDERED: MAG HYDROX/AL HYDROX/SIMETH 30 ML ORAL.SUSP PO PRN (22:15)
[2018-11-23] VITALS (16 sets, daily range): BP systolic 120–168; BP diastolic 57–89
[2018-11-23] MEDS: PIPERACILLIN/TAZOBACTAM 4.5 GM in IV NORMAL SALINE 50ML 50 ML IV SCH ×5 (00:22→23:27)
--- NOTE | 2018-11-23 01:32 | PN ---
DATE: SUBJECTIVE: A 68-year-old male came in with acute respiratory failure. The patient was seen by Cardiology. The patient appears to be in congestive heart failure, but doing much better on a Lasix drip. The patient also apparently had sepsis, cellulitis of his leg, severe venous stasis and chronic kidney disease. The patient otherwise today is feeling much better. He is markedly improved. Blood pressure 140/60, respiratory rate 20, pulse 88. He has low grade temperature of 99.3 today. The patient's white count remained basically stable, is still showing chronic kidney disease stage 3. Blood sugars are under good control. Troponins have been slightly elevated. Cardiology has been consulted. Procalcitonin is elevated. In any case, the patient's D-dimer was elevated, but we were not able to do a V/Q scan and will make further evaluation once Cardiology has seen him. He is on subcutaneous heparin and making further evaluation along with his heparin drip. PHYSICAL EXAMINATION: VITAL SIGNS: Blood pressure 130/60, respiratory rate 20, pulse 87, afebrile. GENERAL: The patient is alert and oriented, in good spirits. LUNGS: Diminished throughout, but basically clear than there have been some crackles in the bases. CARDIOVASCULAR: Regular sinus rhythm. ABDOMEN: Markedly protuberant, soft, nontender. EXTREMITIES: No clubbing, cyanosis. The patient still has marked venous stasis to his legs with marked thickening to his legs. PLAN: We will continue to monitor the patient accordingly. Continue on IV vancomycin and Zosyn and make further evaluation on him as indicated per those results. IMPRESSION: Acute on top of chronic diastolic heart failure, inferior defect ____ ejection fraction 50%, chronic kidney disease stage 3, hypertension, hyperlipidemia, morbid obesity, severe venous insufficiency to his legs with chronic stasis dermatitis, type 2 diabetes, extreme morbid obesity, possible respiratory tract infection, positive calcitonin, continue on vancomycin and Zosyn. CECILIA PEARCE MD DR: TURNER/gaurav JOB#: [id number] / [id number]
[2018-11-23] MEDS: IPRATRPIUM/ALBUTEROL 0.5/2.5MG 3 ML NEBU. NEB SCH ×3 (05:18→20:40)
[2018-11-23] MEDS: HEPARIN for SUB-Q USE 5,000 UNIT/ML VIAL. SQ SCH ×3 (05:32→21:06)
[2018-11-23] MEDS: PANTOPRAZOLE 40 MG TABLET. PO SCH (07:58)
[2018-11-23] MEDS: predniSONE 20 MG TABLET PO SCH (07:58)
[2018-11-23] MEDS: INSULIN LISPRO 300 UNITS/3 ML INSULN.PEN. SQ SCH ×3 (07:58→17:18)
[2018-11-23] MEDS: amLODIPine BESYLATE 10 MG TABLET PO SCH (09:04)
[2018-11-23] MEDS: LACTOBACILLUS RHAMNOSUS GG 1 CAPSULE. PO SCH ×2 (09:04→21:04)
[2018-11-23] MEDS: PIOGLITAZONE 15 MG TABLET. PO SCH (09:04)
[2018-11-23] MEDS: POTASSIUM CHLORIDE 10 MEQ TABLET.ER. PO SCH ×2 (09:04→21:05)
[2018-11-23] MEDS: CLOBETASOL EMOLLIENT 0.05% TOPICAL CREAM 15GM TUBE. TP SCH ×2 (09:13→21:05)
[2018-11-23] MEDS ORDERED: BISACODYL TAB 5 MG TABLET.DR. PO ONE (19:30)
[2018-11-23] MEDS: VANCOMYCIN 2 GM in IV NORMAL SALINE 500ML 500 ML IV SCH (21:04)
[2018-11-23] MEDS: SIMVASTATIN 20 MG TABLET PO SCH (21:05)
[2018-11-24] VITALS (9 sets, daily range): BP systolic 119–160; BP diastolic 66–84
--- NOTE | 2018-11-24 03:27 | PN ---
DATE: 11/21/2018 SUBJECTIVE: A 68-year-old male in with acute respiratory failure. The patient has congestive heart failure, has been on a Lasix drip. He also had sepsis and cellulitis of his leg, severe venous stasis. The patient has been making good progress. He feels much better today. He has diuresed approximately 2000 mL more than he has put in, probably still needs to be continued to be monitored on low-sodium diet and fluid restriction. Otherwise, the patient as stated is feeling much better. OBJECTIVE: VITAL SIGNS: Blood pressure is still elevated at 164/75, respiratory rate 22, pulse 92, afebrile. The patient is on 3 liters at 98%. GENERAL: The patient is a gregarious pleasant gentleman in no apparent distress at the present time. LUNGS: Diminished throughout, poor movement of air, but markedly improved from where it was. CARDIOVASCULAR: Regular sinus rhythm, S1, S2. ABDOMEN: Soft, protuberant. Given a laxative today. EXTREMITIES: Show some wrinkling to his legs with marked hypertrophy and thickening of the skin and making good progress there. LABORATORY DATA: Blood sugars are in the 100s to lower 200s. Troponins have been elevated. Cardiology has been notified of those. Procalcitonin slightly elevated, respiratory problem there. C-reactive protein elevated at almost 20. PLAN: We will continue to monitor the patient accordingly. Continue on Lasix drip until Cardiology evaluates him and make further evaluation on him as indicated per those results. IMPRESSION: Sepsis; acute respiratory failure with hypoxia; cellulitis of the leg; severe venous stasis; chronic kidney disease, stage 3; type 2 diabetes; extreme morbid obesity, BMI greater than 40; acute on top of chronic diastolic congestive heart failure. Continue on antibiotics, Lasix drip, and continue to monitor his electrolytes. CECILIA PEARCE MD DR: TURNER/gaurav JOB#: [id number] / [id number]
[2018-11-24] MEDS: IPRATRPIUM/ALBUTEROL 0.5/2.5MG 3 ML NEBU. NEB SCH ×5 (05:01→20:40)
[2018-11-24] MEDS: PIPERACILLIN/TAZOBACTAM 4.5 GM in IV NORMAL SALINE 50ML 50 ML IV SCH ×3 (06:26→17:11)
[2018-11-24] MEDS: HEPARIN for SUB-Q USE 5,000 UNIT/ML VIAL. SQ SCH ×3 (06:28→20:23)
[2018-11-24 06:38] LABS: BASO % 0 % (0-3); EOS % 0 % (0-3); HEMATOCRIT 32.6 % (39.0-53.0); HEMOGLOBIN 10.7 g/dL (13.0-17.5); LYMPH # 1.3 x10^3/uL (1.0-4.8); LYMPH % 15 % (24-48); MEAN CORPUSCULAR HEMOGLOBIN 27 pg (25-35); MEAN CORPUSCULAR HGB CONC 33 g/dL (31-37); MEAN CORPUSCULAR VOLUME 83 fL (79-100); MONO # 0.9 x10^3/uL (0.0-1.1); MONO % 11 % (0-9); NEUT # 6.3 x10^3uL (1.8-7.7); NEUT % 73 % (31-73); PLATELET COUNT 153 x10^3/uL (140-400); RED BLOOD COUNT 3.94 x10^6/uL (4.30-5.70); RED CELL DISTRIBUTION WIDTH 16.4 % (11.5-14.5); WHITE BLOOD COUNT 8.7 x10^3/uL (4.0-11.0)
--- NOTE | 2018-11-24 06:41 | EKG ---
[address] [address] Test Date: 2018-11-22 Test Time: 09:14:02 Pat Name: JULIO CESAR KRAUSE Department: Room: [facility]04 1 Gender: M Quantitative Analyst Developer: : [id number] Requested By: CECILIA PEARCE Order Number: [id number] Reading MD: Charly Starkey MD Measurements Intervals [place] Rate: 83 P: 31 VT: 270 QRS: 38 QRSD: 106 T: 41 QT: 394 QTc: 469 Interpretive Statements SINUS RHYTHM PROLONGED VT INTERVAL Electronically Signed On 11-25-2018 14:08:57 CDT by Charly Starkey MD
[2018-11-24 06:44] LABS: CALCIUM 8.5 mg/dL (8.5-10.1); CREATININE 2.6 mg/dL (0.7-1.3); GFR 29.9; POTASSIUM 3.7 mmol/L (3.5-5.1)
[2018-11-24] MEDS: VANCOMYCIN PER PHARMACY MC PRN (07:37)
--- NOTE | 2018-11-24 07:37 | NUR ---
Pharmacy Vancomycin Dosing Note S:Consulted to monitor and dose vancomycin started 11/21/18. O:JULIO CESAR KRAUSE is a 68 year old M with Sepsis Height: 5 feet, 8 inches Weight: 188.169591 kg [place] Body Weight: 68.40 Adjusted Body Weight: 116.64 Dosing Weight: Actual Other Antibiotics: ZOSYN 4.5GRAM Q6HRS LABS: Last BUN: 40 Last Creatinine: 2.6 Creatinine Clearance: 45.5 Last WBC: 8.7 Drug Levels: Last Trough level: 15.0 on 11/23/18 at 1830 Last dose given 11/21/18 at 1846 Vancomycin Dosing: Loading Dose: 2000 mg x1 Dosing Weight: Actual Target Trough: 15-20 A: Based on the trough, continue same dose and frequency. P: 1. Continue Vancomycin 2000 mg IV q24h 2. Follow up Trough level on 11/26/18 at 1830 3. Pharmacy will continue to monitor, follow and adjust therapy as needed. LESTER ROWE [facility] 11/24/18 0737
[2018-11-24] MEDS: INSULIN LISPRO 300 UNITS/3 ML INSULN.PEN. SQ SCH ×3 (07:45→17:12)
[2018-11-24] MEDS: LACTOBACILLUS RHAMNOSUS GG 1 CAPSULE. PO SCH ×2 (08:04→20:36)
[2018-11-24] MEDS: predniSONE 20 MG TABLET PO SCH (08:04)
[2018-11-24] MEDS: PIOGLITAZONE 15 MG TABLET. PO SCH (08:04)
[2018-11-24] MEDS: PANTOPRAZOLE 40 MG TABLET. PO SCH (08:04)
[2018-11-24] MEDS: amLODIPine BESYLATE 10 MG TABLET PO SCH (08:05)
[2018-11-24] MEDS: POTASSIUM CHLORIDE 10 MEQ TABLET.ER. PO SCH ×2 (08:05→20:37)
[2018-11-24] MEDS: CLOBETASOL EMOLLIENT 0.05% TOPICAL CREAM 15GM TUBE. TP SCH ×2 (08:05→20:45)
--- NOTE | 2018-11-24 08:56 | PDOC ---
BLANE CRUZ MATERIALS SPECIALIST 11/24/18 0856: PROGRESS NOTES Diagnosis Problem Problems Medical Problems: (1) COPD exacerbation Status: Acute (2) Hypoxia Status: Acute (3) Severe sepsis Status: Acute Assessment Problems Medical Problems: (1) COPD exacerbation Status: Acute (2) Hypoxia Status: Acute (3) Severe sepsis Status: Acute 1. Acute respiratory insufficiency. Contributing factors of COPD, diastolic heart failure and superimposed morbid obesity. Improved. repeat CXR and BNP prior to discontinuing lasix drip. 2. Acute on chronic diastolic heart failure. diuresed well. clinically improved. 3. minimally elevated troponin at 0.068 which is consistent with demand ischemia. No acute ischemic EKG changes. Cardiac MPI testing on 05/12/18 showed no reversible ischemia, a fixed inferior defect and ejection fraction is 50%. Continue RF reduction 4. Chronic kidney disease. Creatinine increased to 2.6. plan to decrease /discontinue lasix pending CXR 5. Hypertension. controlled. continue current medications. 6. Hyperlipidemia. continue current medications. 7. bilateral lymphedema - on outpatient treatments by patient report 8. Diabetes mellitus. As per the primary service. 9. Extreme morbid obesity. 9. suspect BRANDON, would recommend outpatient sleep study though patient is resistant. Subjective feeling much better, no dyspnea, no chest pain, edema unchanged but reportedly at baseline Objective Vital Signs Date Time Temp Pulse Resp B/P (MAP) Pulse Ox O2 Delivery O2 Flow Rate FiO2 11/24/18 08:05 77 146/66 11/24/18 07:57 15 95 Nasal Cannula 1.0 11/23/18 19:45 97.7 Intake and Output 11/24/18 07:00 Intake Total 2400 ml Output Total 4200 ml Balance -1800 ml Intake Oral 2400 ml Output Urine Total 4200 ml # Bowel Movements 1 Abdomen: Normal bowel sounds, Soft Heart: Normal S1, Normal S2, Other (no gallops, clicks or rubs) Extremities: Other (chronic non pitting edema bilateraly lower extremities) General: Alert, Oriented X3, Cooperative, No acute distress HEENT: Atraumatic, Mucous membr. moist/pink Lungs: Clear to auscultation Neuro: Normal speech Psych/Mental Status: Mental status NL, Mood NL Review of Relevant I have reviewed the following items debi (where applicable) has been applied. Labs Laboratory Tests Test 11/22/18 11:32 11/22/18 12:25 11/22/18 16:53 11/22/18 21:04 Glucose (Fingerstick) 180 mg/dL (70-99) 208 mg/dL (70-99) Urine Collection Type Unknown Urine Color Yellow Urine Clarity Cloudy Urine pH 5.0 Urine Specific [place] 1.015 Urine Protein Neg (NEG-TRACE) Urine Glucose (UA) Neg mg/dL (NEG) Urine Ketones (Stick) Neg mg/dL (NEG) Urine Blood Trace (NEG) Urine Nitrite Neg (NEG) Urine Bilirubin Neg (NEG) Urine Urobilinogen Dipstick 0.2 mg/dL (0.2 mg/dL) Urine Leukocyte Esterase Neg (NEG) Urine RBC 1-2 /HPF (0-2) Urine WBC Occ /HPF (0-4) Urine Squamous Epithelial Cells Occ /LPF Urine Bacteria 0 /HPF (0-FEW) Urine Hyaline Casts Occ /HPF Urine Mucus Slight /LPF Blood Gas pH 7.36 (7.35-7.46) Blood Gas PCO2 46 mmHg (35-46) Blood Gas PO2 74 mmHg (80-100) Blood Gas HCO3 26 mmol/L (21-28) Arterial Bld O2 Saturation (Calc) 94 % (92-99) FiO2 32 % Test 11/22/18 21:23 11/23/18 07:39 11/23/18 11:44 11/23/18 17:05 Glucose (Fingerstick) 212 mg/dL (70-99) 143 mg/dL (70-99) 194 mg/dL (70-99) 243 mg/dL (70-99) Test 11/23/18 18:30 11/24/18 06:00 Vancomycin Level Trough 15.0 mcg/mL (10.0-20.0) Vancomycin Last Dose Date 11/22/2018 Vancomycin Last Dose Time 1900 White Blood Count 8.7 x10^3/uL (4.0-11.0) Red Blood Count 3.94 x10^6/uL (4.30-5.70) Hemoglobin 10.7 g/dL (13.0-17.5) Hematocrit 32.6 % (39.0-53.0) Mean Corpuscular Volume 83 fL (79-100) Mean Corpuscular Hemoglobin 27 pg (25-35) Mean Corpuscular Hemoglobin Concent 33 g/dL (31-37) Red Cell Distribution Width 16.4 % (11.5-14.5) Platelet Count 153 x10^3/uL (140-400) Neutrophils (%) (Auto) 73 % (31-73) Lymphocytes (%) (Auto) 15 % (24-48) Monocytes (%) (Auto) 11 % (0-9) Eosinophils (%) (Auto) 0 % (0-3) Basophils (%) (Auto) 0 % (0-3) Neutrophils # (Auto) 6.3 x10^3uL (1.8-7.7) Lymphocytes # (Auto) 1.3 x10^3/uL (1.0-4.8) Monocytes # (Auto) 0.9 x10^3/uL (0.0-1.1) Eosinophils # (Auto) 0.0 x10^3/uL (0.0-0.7) Basophils # (Auto) 0.0 x10^3/uL (0.0-0.2) Sodium Level 144 mmol/L (136-145) Potassium Level 3.7 mmol/L (3.5-5.1) Chloride Level 105 mmol/L (98-107) Carbon Dioxide Level 30 mmol/L (21-32) Anion Gap 9 (6-14) Blood Urea Nitrogen 40 mg/dL (8-26) Creatinine 2.6 mg/dL (0.7-1.3) Estimated GFR (Cockcroft-Gault) 29.9 Glucose Level 149 mg/dL (70-99) Calcium Level 8.5 mg/dL (8.5-10.1) Microbiology 11/21/18 Blood Culture - Preliminary, Resulted NO GROWTH AFTER 2 DAYS... Medications Current Medications Albuterol/ Ipratropium (Duoneb) 3 ml 1X ONCE NEB Last administered on 11/21/18at 14:51; Start 11/21/18 at 15:00; Stop 11/21/18 at 15:01; Status DC Dexamethasone Sodium Phosphate (Decadron) 10 mg 1X ONCE IV Last administered on 11/21/18at 14:51; Start 11/21/18 at 15:00; Stop 11/21/18 at 15:01; Status DC Sodium Chloride 1,000 ml @ 1,000 mls/hr 1X ONCE IV ; Start 11/21/18 at 14:45; Stop 11/21/18 at 14:45; Status DC Piperacillin Sod/ Tazobactam Sod 4.5 gm/Sodium Chloride 50 ml @ 100 mls/hr 1X ONCE IV Last administered on 11/21/18at 16:07; Start 11/21/18 at 16:00; Stop 11/21/18 at 16:29; Status DC Sodium Chloride 1,000 ml @ 1,000 mls/hr 1X ONCE IV Last administered on 11/21at 16:07; Start 11/21/18 at 16:00; Stop 11/21/18 at 16:59; Status DC Sodium Chloride 1,000 ml @ 1,000 mls/hr 1X ONCE IV Last administered on 11/21/18at 16:22; Start 11/21/18 at 16:00; Stop 11/21/18 at 16:59; Status DC Vancomycin HCl 2.75 gm/Sodium Chloride 500 ml @ 250 mls/hr 1X ONCE IV ; Start 11/21/18 at 16:00; Stop 11/21/18 at 16:05; Status DC Sodium Chloride 50 ml @ As Directed STK-MED ONCE .ROUTE ; Start 11/21/18 at 16:04; Stop 11/21/18 at 16:05; Status DC Piperacillin Sod/ Tazobactam Sod (Zosyn) 4.5 gm STK-MED ONCE IV ; Start 11/21/18 at 16:04; Stop 11/21/18 at 16:05; Status DC Vancomycin HCl 2 gm/Sodium Chloride 500 ml @ 250 mls/hr 1X ONCE IV Last administered on 11/21/18at 18:46; Start 11/21/18 at 16:15; Stop 11/21/18 at 18:14; Status DC Sodium Chloride 0 ml @ As Directed STK-MED ONCE .ROUTE ; Start 11/21/18 at 16:19; Stop 11/21/18 at 16:20; Status DC Vancomycin HCl (Vancomycin) 1 gm STK-MED ONCE .ROUTE ; Start 11/21/18 at 16:19; Stop 11/21/18 at 16:20; Status DC Ondansetron HCl (Zofran) 4 mg PRN Q4HRS PRN IV NAUSEA/VOMITING; Start 11/21/18 at 16:30; Stop 11/22/18 at 16:29; Status DC Albuterol/ Ipratropium (Duoneb) 3 ml RTQID NEB ; Start 11/21/18 at 20:00; Stop 11/21/18 at 20:00; Status DC Insulin Human Lispro (HumaLOG) 0-5 UNITS TIDWMEALS SQ Last administered on 11/23/18at 17:18; Start 11/21/18 at 17:00 Dextrose (Dextrose 50%-Water Syringe) 12.5 gm PRN Q15MIN PRN IV SEE COMMENTS; Start 11/21/18 at 16:30 Aspirin (Heather Aspirin) 325 mg 1X ONCE PO Last administered on 11/21/18at 16:51; Start 11/21/18 at 17:15; Stop 11/21/18 at 17:16; Status DC Furosemide (Lasix) 40 mg 1X ONCE IVP Last administered on 11/21/18at 17:25; Start 11/21/18 at 17:30; Stop 11/21/18 at 17:31; Status DC Albuterol/ Ipratropium (Duoneb) 3 ml RTQID NEB Last administered on 11/24/18at 05:01; Start 11/21/18 at 20:00 Furosemide 100 mg/ Sodium Chloride 100 ml @ 5 mls/hr CONT PRN IV SEE I/O RECORD Last administered on 11/22/18at 15:05; Start 11/21/18 at 19:00 Non-Formulary Medication (Albuterol Sulfate (Albuterol Sulfate Conc Neb Soln)) 1 vial Q4HRS NEB ; Start 11/21/18 at 20:00; Stop 11/21/18 at 20:00; Status DC Amlodipine Besylate (Norvasc) 10 mg DAILY PO Last administered on 11/24/18at 08:05; Start 11/22/18 at 09:00 Non-Formulary Medication (Ipratropium/ Albuterol Sulfate (Combivent Respimat Inhal)) 1 puff Q6HRS INH ; Start 11/22/18 at 00:00; Stop 11/22/18 at 00:00; Status DC Pantoprazole Sodium (Protonix) 40 mg DAILYAC PO Last administered on 11/24/18at 08:04; Start 11/22/18 at 07:30 Pioglitazone HCl (Actos) 30 mg DAILY PO Last administered on 11/24/18 08:04; Start 11/22/18 at 09:00 Potassium Chloride (Klor-Con) 10 meq BID PO Last administered on 11/24/18 08:05; Start 11/21/18 at 21:00 Prednisone (Prednisone) 50 mg DAILYWBKFT PO Last administered on 11/24/18 08:04; Start 11/22/18 at 08:00 Simvastatin (Zocor) 80 mg HS PO Last administered on 11/23/18 21:05; Start 11/21/18 at 21:00 Vancomycin HCl (Vanco Per Pharmacy) 1 each PRN DAILY PRN MC SEE COMMENTS Last administered on 11/24/18 07:37; Start 11/21/18 at 18:15 Piperacillin Sod/ Tazobactam Sod (Zosyn Per Pharmacy) 1 each PRN DAILY PRN MC SEE COMMENTS; Start 11/21/18 at 18:15 Piperacillin Sod/ Tazobactam Sod (Zosyn Per Pharmacy) 1 each PRN DAILY PRN MC SEE COMMENTS; Start 11/21/18 at 18:15; Stop 11/21/18 at 18:40; Status DC Piperacillin Sod/ Tazobactam Sod 4.5 gm/Sodium Chloride 50 ml @ 100 mls/hr Q6HRS IV Last administered on 11/24/18 06:26; Start 11/22/18 at 00:00 Albuterol Sulfate (Ventolin) 2.5 mg PRN Q4HRS PRN NEB SHORTNESS OF BREATH; Start 11/21/18 at 19:15 Vancomycin HCl 2 gm/Sodium Chloride 500 ml @ 250 mls/hr Q24H IV Last administered on 11/23/18 21:04; Start 11/22/18 at 19:00 Vancomycin HCl (Vancomycin Trough Level) 1 each 1X ONCE MC Last administered on 11/23/18 18:30; Start 11/23/18 at 18:30; Stop 11/23/18 at 18:32; Status DC Heparin Sodium (Porcine) (Heparin Sodium) 5,000 unit Q8HRS SQ Last administered on 11/24/18 06:28; Start 11/22/18 at 14:00 Lactobacillus Rhamnosus (Culturelle) 1 cap BID PO Last administered on 5/6/19at 08:04; Start 11/22/18 at 21:00 Al Hydroxide/Mg Hydroxide (Mylanta Plus Xs) 30 ml PRN Q2HR PRN PO DYSPEPSIA Last administered on 11/22/18at 22:54; Start 11/22/18 at 22:15 Clobetasol Propionate 1 jonathan BID TP Last administered on 11/24/18at 08:05; Start 11/23/18 at 09:00 Bisacodyl (Dulcolax Tab) 10 mg 1X ONCE PO ; Start 11/23/18 at 19:30; Stop 11/23/18 at 19:32; Status DC Vancomycin HCl (Vancomycin Trough Level) 1 each 1X ONCE MC ; Start 11/26/18 at 18:30; Stop 11/26/18 at 18:31 Active Scripts Active Albuterol Sulfate Conc Neb Soln (Albuterol Sulfate) 2.5 Mg/0.5 Ml Vial.neb 1 Vial NEB Q4HRS Prednisone 50 Mg Tablet 1 Tab PO DAILY Combivent Respimat Inhal (Ipratropium/Albuterol Sulfate) 4 Gm Aer.w.adap 1 Puff INH Q6HRS Reported Actos (Pioglitazone Hcl) 30 Mg Tablet 30 Mg PO DAILY LAST DOSE GIVEN: DATE: TIME: NEXT DOSE DUE: DATE: TIME: Potassium Chloride 10 Meq Tablet.er 10 Meq PO BID LAST DOSE GIVEN: DATE: TIME: NEXT DOSE DUE: DATE: TIME: Amlodipine Besylate 10 Mg Tablet 10 Mg PO DAILY LAST DOSE GIVEN: DATE: TIME: NEXT DOSE DUE: DATE: TIME: Omeprazole 40 Mg Capsule.dr 40 Mg PO BID LAST DOSE GIVEN: DATE: TIME: NEXT DOSE DUE: DATE: TIME: Lasix (Furosemide) 40 Mg Tablet 40 Mg PO DAILY LAST DOSE GIVEN: DATE: TIME: NEXT DOSE DUE: DATE: TIME: Simvastatin 80 Mg Tablet 80 Mg PO QHS LAST DOSE GIVEN: DATE: TIME: NEXT DOSE DUE: DATE: TIME: Vitals/I & O Vital Sign - Last 24 Hours 11/23/18 11/23/18 11/23/18 11/23/18 09:04 09:29 10:38 11:17 Pulse 86 75 76 90 Resp 18 18 18 B/P (MAP) 140/67 120/64 (82) 129/59 (82) 168/89 (115) Pulse Ox 96 96 95 O2 Delivery Nasal Cannula Nasal Cannula Nasal Cannula O2 Flow Rate 2.0 2.0 2.0 11/23/18 11/23/18 11/23/18 11/23/18 12:00 12:12 15:08 19:45 Temp 97.5 98.3 97.7 Pulse 92 90 Resp 22 20 B/P (MAP) 164/75 (104) 151/84 (106) Pulse Ox 98 93 98 O2 Delivery Nasal Cannula Room Air Nasal Cannula O2 Flow Rate 3.0 2.0 11/23/18 11/23/18 11/23/18 11/23/18 20:00 20:43 20:45 22:45 Pulse 92 94 Resp 24 24 B/P (MAP) 153/69 (97) 160/69 (99) Pulse Ox 98 97 95 O2 Delivery Nasal Cannula Nasal Cannula Nasal Cannula Nasal Cannula O2 Flow Rate 2.0 2.0 2.0 2.0 11/24/18 11/24/18 11/24/18 11/24/18 00:00 01:00 02:45 03:45 Pulse 88 90 82 82 Resp 20 20 18 20 B/P (MAP) 145/79 (101) 155/84 (107) 142/76 (98) 151/75 (100) Pulse Ox 96 95 96 94 O2 Delivery Nasal Cannula Nasal Cannula Nasal Cannula Nasal Cannula O2 Flow Rate 2.0 2.0 2.0 2.0 11/24/18 11/24/18 11/24/18 11/24/18 04:50 05:02 07:57 08:05 Pulse 82 77 77 Resp 16 15 B/P (MAP) 119/84 (96) 146/66 (92) 146/66 Pulse Ox 98 92 95 O2 Delivery Nasal Cannula Nasal Cannula Nasal Cannula O2 Flow Rate 2.0 1.0 1.0 Intake and Output 11/23/18 11/23/18 11/24/18 15:00 23:00 07:00 Intake Total 1380 ml 1020 ml Output Total 1400 ml 1650 ml 1150 ml Balance -20 ml -630 ml -1150 ml MALVIN LUZ MD 11/24/182: PROGRESS NOTES Review of Relevant Pt. seen and examined. Agree with above Film Producer note. Hold diuresis. Aggressive lymphedema care. He needs to lose weight otherwise he risks early cardiac mortality. I spent several minutes today talking to him about dietary changes etc Consider stopping his high dose prednisone. BLANE CRUZ APRN November 24, 2018 08:56 MALVIN LUZ MD November 24, 2018 22:12
--- NOTE | 2018-11-24 09:32 | PN ---
DATE: 11/23/2018 ADDENDUM The patient did also have a positive D-dimer; however, because of his weight, size, we were not able to obtain a V/Q scan on him and determination needs to be made as to finding a facility that can handle his weight. Otherwise, he is on subcutaneous heparin and as noted oxygenation seems to be improving, still requires further evaluation. He also has type 2 diabetes and monitoring that as well, as far as his control of his blood sugars as well. CECILIA PEARCE MD DR: TURNER/gaurav JOB#: [id number] / [id number]
[2018-11-24] MEDS: hydrALAZINE 25 MG TABLET PO SCH ×2 (09:44→20:38)
--- NOTE | 2018-11-24 10:31 | RAD ---
CHEST AP ONLY Clinical indications: CHF. COMPARISON: November 21, 2018. Findings: There has been resolution of the bilateral perihilar lung infiltrates or pulmonary edema seen previously. No pleural effusion or pneumothorax is seen. Heart size is enlarged but stable. The mediastinum and pulmonary vasculature are unchanged. A left upper extremity PICC line is in place and the tip is seen within the lower SVC at the junction with the right atrium. Gaseous distention of the bowel is seen. IMPRESSION: Resolution of bilateral perihilar lung infiltrates or pulmonary edema. Distention of bowel. Electronically signed by: Jesus Valdez MD (11/24/2018 10:27 AM) [facility]
--- NOTE | 2018-11-24 16:48 | CARD ---
MR#: [id number] Date of Study: 11/24/2018 Ordering Physician: MALVIN LUZ, Referring Physician: LEONILA COLMENARES, Tech: Rosy Barahona [facility] APPROVED REPORT EXAM: LIMITED Two-dimensional and M-mode echocardiogram with Doppler and color Doppler. Other Information Quality : AverageHR: 103bpm Rhythm : Tachycardia INDICATION Congestive Heart Failure 2D DIMENSIONS RVDd4.0 (2.9-3.5cm)Left Atrium(2D)5.5 (1.6-4.0cm) IVSd1.3 (0.7-1.1cm)Aortic Root(2D)3.3 (2.0-3.7cm) LVDd5.2 (3.9-5.9cm)PWd1.2 (0.7-1.1cm) LVDs3.3 (2.5-4.0cm)FS (%) 35.9 % SV84.3 mlLVEF(%)65.1 (>50%) Tricuspid Valve TR P. [id number] TR Peak [id number] LEFT VENTRICLE The left ventricle is normal size. There is mild concentric left ventricular hypertrophy. The left ve ntricular systolic function is normal and the ejection fraction is within normal range. The Ejection Fraction is 60-65%. There is normal LV segmental wall motion. RIGHT VENTRICLE The right ventricle is normal size. There is normal right ventricular wall thickness. The right ventr icular systolic function is normal. ATRIA The left atrium is moderately dilated. The right atrium is not well visualized. MITRAL VALVE The mitral valve is normal in structure and function. There is no evidence of mitral valve prolapse. There is no mitral valve stenosis. Doppler and Color-flow revealed mild mitral regurgitation. TRICUSPID VALVE The tricuspid valve is normal in structure and function. Doppler and Color Flow revealed trace tricus pid regurgitation. The PA pressure was estimated at 31 mmHg. There is no tricuspid valve prolapse or vegetation. There is no tricuspid valve stenosis. GREAT VESSELS The aortic root is normal in size. The IVC was not visualized. PERICARDIAL EFFUSION There is no evidence of significant pericardial effusion. Critical Notification Critical Value: No <Conclusion> There is mild concentric left ventricular hypertrophy. The left ventricular systolic function is normal and the ejection fraction is within normal range. Th e Ejection Fraction is 60-65%. There is normal LV segmental wall motion. Limited echo. Signed by : Malvin Luz, Electronically Approved : 11/24/2018 16:47:48
[2018-11-24] MEDS: VANCOMYCIN 2 GM in IV NORMAL SALINE 500ML 500 ML IV SCH (18:17)
[2018-11-24] MEDS: SIMVASTATIN 20 MG TABLET PO SCH (20:37)
[2018-11-25 00:06] LABS: HEMOGLOBIN A1C 6.7 % (4.8-5.6)
[2018-11-25] MEDS: PIPERACILLIN/TAZOBACTAM 4.5 GM in IV NORMAL SALINE 50ML 50 ML IV SCH ×3 (00:15→12:00)
[2018-11-25 00:28] VITALS: BP 156/68
--- NOTE | 2018-11-25 03:05 | NUR ---
PATIENT O2 SATS DROPPING TO 80s WHILE ASLEEP ON RA. RN PLACED 3L OF O2 PER NC ON PATIENT WHILE SLEEPING. CONTINUOUS O2 MONITORING CURRENTLY IN PLACE. PATIENT O2 SAT = 99% ON 3L OF O2 AT THIS TIME WHILE SLEEPING. RN WILL CONTINUE TO MONITOR.
[2018-11-25] MEDS: IPRATRPIUM/ALBUTEROL 0.5/2.5MG 3 ML NEBU. NEB SCH ×2 (05:12→09:25)
[2018-11-25] MEDS: HEPARIN for SUB-Q USE 5,000 UNIT/ML VIAL. SQ SCH ×2 (05:45→14:00)
[2018-11-25 05:51] VITALS: BP 138/68
--- NOTE | 2018-11-25 06:12 | PN ---
DATE: 11/24/2018 SUBJECTIVE: The patient is sitting comfortably in his recliner, in no apparent distress. On questioning him, he stated that he is feeling much better and has had no more shortness of breath. He is maintaining his oxygen saturation at 91% on room air. He is afebrile and his white cell count is normal at 8.7. PHYSICAL EXAMINATION: GENERAL: When I examined him, he looked well and was clearly in no apparent respiratory distress. No pallor, jaundice, cyanosis, or thyromegaly. No jugular venous distention, but marked bilateral lymphedema. VITAL SIGNS: His heart rate was 88, blood pressure 145/79, temperature was 97.7, respiratory rate was 15 and oxygen saturation was 95% on 1 liter of oxygen. He is 91% on room air. HEAD, EYES, EARS, NOSE AND THROAT: Showed normocephalic, atraumatic. NECK: Supple. HEART: Showed normal first and second heart sounds. No gallop, rub or murmur. CHEST: Shows central trachea, equal bilateral expansion, air entry, vesicular sounds. No crepitation or rhonchi. ABDOMEN: Markedly distended, soft, nontender. NEUROLOGIC: He is awake, alert, responding appropriately. All cranial nerves are intact. He moves extremities without difficulty. He has marked bilateral lower extremity lymphedema with wounds in the left leg covered with dressing. His intake over the last 24 hours was 1200, output was 2900. LABORATORY DATA: As of this morning, his white cell count was 8700, hemoglobin 11, hematocrit 33, MCV 83 and platelet count of 153,000. His chemistry showed serum sodium was 144, potassium 3.7, chloride 105, bicarbonate 30, anion gap of 9, BUN 40, creatinine 2.6. Estimated GFR was 30 mL per minute. His glucose was 149, calcium was 8.5. His serum iron, TIBC and iron saturation were all low. His D-dimer was high at 1.45. Urinalysis was unremarkable and toxic screen showed his vancomycin trough level is 15, which is within therapeutic range. His nasal screen MRSA PCR was negative and his influenza A and B were negative. ASSESSMENT: 1. 1. Acute respiratory insufficiency, multifactorial including chronic obstructive pulmonary disease exacerbation, diastolic congestive heart failure, together with morbid obesity and probably obstructive sleep apnea. 2. 2. Acute on chronic diastolic heart failure. 3. 3. Elevated troponin with no acute ischemic EKG changes, likely due to demand ischemia. 4. 4. The patient has chronic kidney disease with acute component. His creatinine has risen up to 2.6. 5. 5. Hypertension, well controlled. 6. 6. Hyperlipidemia. 7. 7. Bilateral lymphedema. 8. 8. Type 2 diabetes mellitus, seems to be reasonably controlled. 9. 9. Extreme morbid obesity with suspected obstructive sleep apnea. PLAN: Obviously his Lasix drip was discontinued. Continue the IV antibiotics for his sepsis in the form of vancomycin and Zosyn. Continue with DVT prophylaxis. Continue to monitor his blood sugar and adjust insulin as needed. LEONILA COLMENARES MD DR: TINY/gaurav JOB#: [id number] / [id number]
[2018-11-25 06:34] LABS: CALCIUM 8.2 mg/dL (8.5-10.1); CREATININE 2.6 mg/dL (0.7-1.3); GFR 29.9; POTASSIUM 3.6 mmol/L (3.5-5.1)
[2018-11-25] MEDS: INSULIN LISPRO 300 UNITS/3 ML INSULN.PEN. SQ SCH ×2 (06:57→12:50)
[2018-11-25] MEDS: POTASSIUM CHLORIDE 10 MEQ TABLET.ER. PO SCH (08:26)
[2018-11-25] MEDS: PIOGLITAZONE 15 MG TABLET. PO SCH (08:26)
[2018-11-25] MEDS: hydrALAZINE 25 MG TABLET PO SCH (08:27)
[2018-11-25] MEDS: PANTOPRAZOLE 40 MG TABLET. PO SCH (08:27)
[2018-11-25] MEDS: amLODIPine BESYLATE 10 MG TABLET PO SCH (08:27)
[2018-11-25] MEDS: LACTOBACILLUS RHAMNOSUS GG 1 CAPSULE. PO SCH (08:27)
[2018-11-25] MEDS: CLOBETASOL EMOLLIENT 0.05% TOPICAL CREAM 15GM TUBE. TP SCH (08:36)
[2018-11-25 08:39] VITALS: BP 149/67
[2018-11-25] MEDS ORDERED: FUROSEMIDE 40 MG TABLET PO SCH (09:00)
--- NOTE | 2018-11-25 09:21 | PDOC ---
PROGRESS NOTES Diagnosis Problem Problems Medical Problems: (1) COPD exacerbation Status: Acute (2) Hypoxia Status: Acute (3) Severe sepsis Status: Acute Assessment Problems Medical Problems: (1) COPD exacerbation Status: Acute (2) Hypoxia Status: Acute (3) Severe sepsis Status: Acute 1. Acute respiratory insufficiency. Contributing factors of COPD, diastolic heart failure and superimposed morbid obesity. Improved. 2. Acute on chronic diastolic heart failure. diuresed well. clinically improved. hold diuretics 2 days. 2 week follow up,. 3. minimally elevated troponin at 0.068 which is consistent with demand ischemia. No acute ischemic EKG changes. Cardiac MPI testing on 05/12/18 showed no reversible ischemia, a fixed inferior defect and ejection fraction is 50%. Continue RF reduction 4. Chronic kidney disease. Creatinine increased to 2.6. baseline appears to be 2.1. will hold oral diuretics for next 2 days and resume saturday, suggest CMP on saturday. 5. Hypertension. controlled. continue current medications. 6. Hyperlipidemia. continue current medications. 7. bilateral lymphedema - on outpatient treatments by patient report, referred to lymphedema clinic. 8. Diabetes mellitus. As per the primary service. 9. Extreme morbid obesity. 9. suspect BRANDON, would recommend outpatient sleep study though patient is resistant. Subjective feeling much better, no dyspnea, no chest pain, no palpitations Objective Vital Signs Date Time Temp Pulse Resp B/P (MAP) Pulse Ox O2 Delivery O2 Flow Rate FiO2 11/25/18 08:40 Room Air 11/25/18 08:39 88 18 149/67 (94) 98 11/25/18 05:51 98.1 1.0 Intake and Output 11/25/18 07:00 Intake Total 1720 ml Output Total 2950 ml Balance -1230 ml Intake Oral 1520 ml IV Total 200 ml Output Urine Total 2950 ml Abdomen: Normal bowel sounds, Soft, No tenderness Heart: Normal S1, Normal S2, Other (no gallops, clicks or rubs) Extremities: Other (chronic non pitting edema) General: Alert, Oriented X3, Cooperative, No acute distress HEENT: Atraumatic, Mucous membr. moist/pink Lungs: Clear to auscultation Neuro: Normal speech, Strength at 5/5 X4 ext Psych/Mental Status: Mental status NL, Mood NL Review of Relevant I have reviewed the following items debi (where applicable) has been applied. Labs Laboratory Tests Test 11/23/18 11:44 11/23/18 17:05 11/23/18 18:30 11/24/18 06:00 Glucose (Fingerstick) 194 mg/dL (70-99) 243 mg/dL (70-99) Vancomycin Level Trough 15.0 mcg/mL (10.0-20.0) Vancomycin Last Dose Date 11/22/2018 Vancomycin Last Dose Time 1900 White Blood Count 8.7 x10^3/uL (4.0-11.0) Red Blood Count 3.94 x10^6/uL (4.30-5.70) Hemoglobin 10.7 g/dL (13.0-17.5) Hematocrit 32.6 % (39.0-53.0) Mean Corpuscular Volume 83 fL (79-100) Mean Corpuscular Hemoglobin 27 pg (25-35) Mean Corpuscular Hemoglobin Concent 33 g/dL (31-37) Red Cell Distribution Width 16.4 % (11.5-14.5) Platelet Count 153 x10^3/uL (140-400) Neutrophils (%) (Auto) 73 % (31-73) Lymphocytes (%) (Auto) 15 % (24-48) Monocytes (%) (Auto) 11 % (0-9) Eosinophils (%) (Auto) 0 % (0-3) Basophils (%) (Auto) 0 % (0-3) Neutrophils # (Auto) 6.3 x10^3uL (1.8-7.7) Lymphocytes # (Auto) 1.3 x10^3/uL (1.0-4.8) Monocytes # (Auto) 0.9 x10^3/uL (0.0-1.1) Eosinophils # (Auto) 0.0 x10^3/uL (0.0-0.7) Basophils # (Auto) 0.0 x10^3/uL (0.0-0.2) Sodium Level 144 mmol/L (136-145) Potassium Level 3.7 mmol/L (3.5-5.1) Chloride Level 105 mmol/L (98-107) Carbon Dioxide Level 30 mmol/L (21-32) Anion Gap 9 (6-14) Blood Urea Nitrogen 40 mg/dL (8-26) Creatinine 2.6 mg/dL (0.7-1.3) Estimated GFR (Cockcroft-Gault) 29.9 Glucose Level 149 mg/dL (70-99) Hemoglobin A1c 6.7 % (4.8-5.6) Calcium Level 8.5 mg/dL (8.5-10.1) Iron Level 46 ug/dL (65-175) Total Iron Binding Capacity 237 ug/dL (250-450) Iron Saturation 19 % (15-34) QM-Xly-Y-Type Natriuretic Peptide 1106 pg/mL (0-124) Test 11/24/18 11:38 11/24/18 17:02 11/24/18 20:26 11/25/18 05:55 Glucose (Fingerstick) 175 mg/dL (70-99) 275 mg/dL (70-99) 253 mg/dL (70-99) Prothrombin Time 12.0 SEC (9.4-11.4) Prothromb Time International Ratio 1.2 (0.9-1.1) Sodium Level 143 mmol/L (136-145) Potassium Level 3.6 mmol/L (3.5-5.1) Chloride Level 106 mmol/L (98-107) Carbon Dioxide Level 30 mmol/L (21-32) Anion Gap 7 (6-14) Blood Urea Nitrogen 40 mg/dL (8-26) Creatinine 2.6 mg/dL (0.7-1.3) Estimated GFR (Cockcroft-Gault) 29.9 Glucose Level 146 mg/dL (70-99) Calcium Level 8.2 mg/dL (8.5-10.1) Microbiology 11/21/18 Blood Culture - Preliminary, Resulted NO GROWTH AFTER 3 DAYS... Medications Current Medications Albuterol/ Ipratropium (Duoneb) 3 ml 1X ONCE NEB Last administered on 11/21/18at 14:51; Start 11/21/18 at 15:00; Stop 11/21/18 at 15:01; Status DC Dexamethasone Sodium Phosphate (Decadron) 10 mg 1X ONCE IV Last administered on 11/21/18at 14:51; Start 11/21/18 at 15:00; Stop 11/21/18 at 15:01; Status DC Sodium Chloride 1,000 ml @ 1,000 mls/hr 1X ONCE IV ; Start 11/21/18 at 14:45; Stop 11/21/18 at 14:45; Status DC Piperacillin Sod/ Tazobactam Sod 4.5 gm/Sodium Chloride 50 ml @ 100 mls/hr 1X ONCE IV Last administered on 11/21/18at 16:07; Start 11/21/18 at 16:00; Stop 11/21/18 at 16:29; Status DC Sodium Chloride 1,000 ml @ 1,000 mls/hr 1X ONCE IV Last administered on 11/21/18at 16:07; Start 11/21/18 at 16:00; Stop 11/21/18 at 16:59; Status DC Sodium Chloride 1,000 ml @ 1,000 mls/hr 1X ONCE IV Last administered on 11/21/18at 16:22; Start 11/21/18 at 16:00; Stop 11/21/18 at 16:59; Status DC Vancomycin HCl 2.75 gm/Sodium Chloride 500 ml @ 250 mls/hr 1X ONCE IV ; Start 11/21/18 at 16:00; Stop 11/21/18 at 16:05; Status DC Sodium Chloride 50 ml @ As Directed STK-MED ONCE .ROUTE ; Start 11/21/18 at 16:04; Stop 11/21/18 at 16:05; Status DC Piperacillin Sod/ Tazobactam Sod (Zosyn) 4.5 gm STK-MED ONCE IV ; Start 11/21/18 at 16:04; Stop 11/21/18 at 16:05; Status DC Vancomycin HCl 2 gm/Sodium Chloride 500 ml @ 250 mls/hr 1X ONCE IV Last administered on 11/21/18at 18:46; Start 11/21/18 at 16:15; Stop 11/21/18 at 18:14; Status DC Sodium Chloride 0 ml @ As Directed STK-MED ONCE .ROUTE ; Start 11/21/18 at 16:19; Stop 11/21/18 at 16:20; Status DC Vancomycin HCl (Vancomycin) 1 gm STK-MED ONCE .ROUTE ; Start 11/21/18 at 16:19; Stop 11/21/18 at 16:20; Status DC Ondansetron HCl (Zofran) 4 mg PRN Q4HRS PRN IV NAUSEA/VOMITING; Start 11/21/18 at 16:30; Stop 11/22/18 at 16:29; Status DC Albuterol/ Ipratropium (Duoneb) 3 ml RTQID NEB ; Start 11/21/18 at 20:00; Stop 11/21/18 at 20:00; Status DC Insulin Human Lispro (HumaLOG) 0-5 UNITS TIDWMEALS SQ Last administered on 11/24/18at 17:12; Start 11/21/18 at 17:00 Dextrose (Dextrose 50%-Water Syringe) 12.5 gm PRN Q15MIN PRN IV SEE COMMENTS; Start 11/21/18 at 16:30 Aspirin (Heather Aspirin) 325 mg 1X ONCE PO Last administered on 11/21/18at 16:51; Start 11/21/18 at 17:15; Stop 11/21/18 at 17:16; Status DC Furosemide (Lasix) 40 mg 1X ONCE IVP Last administered on 11/21/18at 17:25; Start 11/21/18 at 17:30; Stop 11/21/18 at 17:31; Status DC Albuterol/ Ipratropium (Duoneb) 3 ml RTQID NEB Last administered on 11/25/18at 05:12; Start 11/21/18 at 20:00 Furosemide 100 mg/ Sodium Chloride 100 ml @ 5 mls/hr CONT PRN IV SEE I/O RECORD Last administered on 11/22/18at 15:05; Start 11/21/18 at 19:00; Stop 11/24/18 at 16:41; Status DC Non-Formulary Medication (Albuterol Sulfate (Albuterol Sulfate Conc Neb Soln)) 1 vial Q4HRS NEB ; Start 11/21/18 at 20:00; Stop 11/21/18 at 20:00; Status DC Amlodipine Besylate (Norvasc) 10 mg DAILY PO Last administered on 11/25/18at 08:27; Start 11/22/18 at 09:00 Non-Formulary Medication (Ipratropium/ Albuterol Sulfate (Combivent Respimat Inhal)) 1 puff Q6HRS INH ; Start 11/22/18 at 00:00; Stop 11/22/18 at 00:00; Status DC Pantoprazole Sodium (Protonix) 40 mg DAILYAC PO Last administered on 11/25/18at 08:27; Start 11/22/18 at 07:30 Pioglitazone HCl (Actos) 30 mg DAILY PO Last administered on 11/25/18 08:26; Start 11/22/18 at 09:00 Potassium Chloride (Klor-Con) 10 meq BID PO Last administered on 11/25/18 08:26; Start 11/21/18 at 21:00 Prednisone (Prednisone) 50 mg DAILYWBKFT PO Last administered on 11/24/18 08:04; Start 11/22/18 at 08:00; Stop 11/24/18 at 15:19; Status DC Simvastatin (Zocor) 80 mg HS PO Last administered on 11/24/18at 20:37; Start 11/21/18 at 21:00 Vancomycin HCl (Vanco Per Pharmacy) 1 each PRN DAILY PRN MC SEE COMMENTS Last administered on 11/24/18at 07:37; Start 11/21/18 at 18:15 Piperacillin Sod/ Tazobactam Sod (Zosyn Per Pharmacy) 1 each PRN DAILY PRN MC SEE COMMENTS; Start 11/21/18 at 18:15 Piperacillin Sod/ Tazobactam Sod (Zosyn Per Pharmacy) 1 each PRN DAILY PRN MC SEE COMMENTS; Start 11/21/18 at 18:15; Stop 11/21/18 at 18:40; Status DC Piperacillin Sod/ Tazobactam Sod 4.5 gm/Sodium Chloride 50 ml @ 100 mls/hr Q6HRS IV Last administered on 11/25/18 05:45; Start 11/22/18 at 00:00 Albuterol Sulfate (Ventolin) 2.5 mg PRN Q4HRS PRN NEB SHORTNESS OF BREATH Last administered on 11/25/18 09:19; Start 11/21/18 at 19:15 Vancomycin HCl 2 gm/Sodium Chloride 500 ml @ 250 mls/hr Q24H IV Last administered on 11/24/18 18:17; Start 11/22/18 at 19:00 Vancomycin HCl (Vancomycin Trough Level) 1 each 1X ONCE MC Last administered on 11/23/18at 18:30; Start 11/23/18 at 18:30; Stop 11/23/18 at 18:32; Status DC Heparin Sodium (Porcine) (Heparin Sodium) 5,000 unit Q8HRS SQ Last administered on 5/7/19at 05:45; Start 11/22/18 at 14:00 Lactobacillus Rhamnosus (Culturelle) 1 cap BID PO Last administered on 11/25/18 08:27; Start 11/22/18 at 21:00 Al Hydroxide/Mg Hydroxide (Mylanta Plus Xs) 30 ml PRN Q2HR PRN PO DYSPEPSIA Last administered on 11/22/18at 22:54; Start 11/22/18 at 22:15 Clobetasol Propionate 1 jonathan BID TP Last administered on 11/25/18at 08:36; Start 11/23/18 at 09:00 Bisacodyl (Dulcolax Tab) 10 mg 1X ONCE PO ; Start 11/23/18 at 19:30; Stop 11/23/18 at 19:32; Status DC Vancomycin HCl (Vancomycin Trough Level) 1 each 1X ONCE MC ; Start 11/26/18 at 18:30; Stop 11/26/18 at 18:31 Hydralazine HCl (Apresoline) 25 mg BID PO Last administered on 11/25/18at 08:27; Start 11/24/18 at 09:00 Furosemide (Lasix) 40 mg DAILY PO Last administered on 11/25/18at 08:39; Start 11/25/18 at 09:00 Active Scripts Active Albuterol Sulfate Conc Neb Soln (Albuterol Sulfate) 2.5 Mg/0.5 Ml Vial.neb 1 Vial NEB Q4HRS Combivent Respimat Inhal (Ipratropium/Albuterol Sulfate) 4 Gm Aer.w.adap 1 Puff INH Q6HRS Reported Actos (Pioglitazone Hcl) 30 Mg Tablet 30 Mg PO DAILY LAST DOSE GIVEN: DATE: TIME: NEXT DOSE DUE: DATE: TIME: Potassium Chloride 10 Meq Tablet.er 10 Meq PO BID LAST DOSE GIVEN: DATE: TIME: NEXT DOSE DUE: DATE: TIME: Amlodipine Besylate 10 Mg Tablet 10 Mg PO DAILY LAST DOSE GIVEN: DATE: TIME: NEXT DOSE DUE: DATE: TIME: Lasix (Furosemide) 40 Mg Tablet 40 Mg PO DAILY LAST DOSE GIVEN: DATE: TIME: NEXT DOSE DUE: DATE: TIME: Simvastatin 80 Mg Tablet 80 Mg PO QHS LAST DOSE GIVEN: DATE: TIME: NEXT DOSE DUE: DATE: TIME: Vitals/I & O Vital Sign - Last 24 Hours 5/6/11/24/18 11/24/18 11/24/18 09:44 09:45 11:20 11:45 Pulse 77 78 94 Resp 15 15 B/P (MAP) 146/66 146/68 (94) 140/70 (93) Pulse Ox 90 92 92 O2 Delivery Room Air Room Air Room Air O2 Flow Rate 0.0 11/24/18 11/24/18 11/24/18 11/24/18 15:00 16:36 20:00 20:38 Pulse 100 100 Resp 18 B/P (MAP) 160/75 (103) 160/75 Pulse Ox 92 97 O2 Delivery Room Air Room Air Room Air O2 Flow Rate 0.0 11/24/18 11/25/18 11/25/18 11/25/18 20:42 00:28 04:10 05:13 Temp 98.7 Pulse 92 76 Resp 20 18 B/P (MAP) 156/68 (97) Pulse Ox 95 94 99 99 O2 Delivery Room Air Room Air NASAL CANNULA WHILE SLEEPING Nasal Cannula O2 Flow Rate 3.0 3.0 11/25/18 11/25/18 11/25/18 11/25/18 05:51 08:27 08:27 08:39 Temp 98.1 Pulse 79 79 79 88 Resp 20 18 B/P (MAP) 138/68 (91) 138/68 138/68 149/67 (94) Pulse Ox 97 98 O2 Delivery Nasal Cannula Room Air O2 Flow Rate 1.0 11/25/18 08:40 O2 Delivery Room Air Intake and Output 11/24/18 11/24/18 11/25/18 15:00 23:00 07:00 Intake Total 830 ml 590 ml 300 ml Output Total 1200 ml 925 ml 825 ml Balance -370 ml -335 ml -525 ml BLANE CRUZ APRN November 25, 2018 09:21
--- NOTE | 2018-11-25 12:00 | NUR ---
Dr. Alvarado here at this time, plan is to discharge home with home health services. Follow up appts made at this time. Will hold lasix x2 days per cardiology.
[2018-11-25 12:57] VITALS: BP 154/57
[2018-11-25] MEDS ORDERED: DOXY100C2 PO (13:16)
--- NOTE | 2018-11-25 13:42 | NUR ---
Wound Care Wound care consult for LLE wound. Pt has lymphedema to BLE that has a weeping area to Left lower posterior calf, applied Clobetasol as ordered with ABD and Kerlix. Applied size G medigrips to BLE as bill wraps were causing areas of pressure where they bunched into skin folds. Pt is to follow up with lymphedema therapy after discharge. No other wounds noted at this time. WC will sign off at this time. Please reconsult if new wounds develop.
[2018-11-25] MEDS ORDERED: AMOX1TAB10 PO (14:01)
--- NOTE | 2018-11-25 16:42 | NUR ---
Patient ambulated off unit via wheelchair at this time with son. DC instructions given to patient and family along with prescriptions. Pt understands discharge instructions and will have home health services following up with patient. Follow up appt made for [facility] Cardio, Pulmonary and Lymphedema clinic.
--- NOTE | 2018-11-25 17:04 | DS ---
DATE OF DISCHARGE: 11/25/2018 HOSPITAL COURSE: The patient is a 68-year-old -[place] male patient, who was originally admitted on 11/22/2018 through the Emergency Department with increased shortness of breath and was extremely hypoxic with oxygen saturation was only 68%. He was pale with marked respiratory distress. He was placed on a BiPAP machine to maintain sufficient oxygen saturation. He was admitted with acute respiratory distress failure, possible jikmj-yc-[id number] diastolic congestive heart failure, who was actually started on Lasix drip, was evaluated by the Cardiology team. His troponin was slightly elevated at 0.8 consistent with demand ischemia with no acute ischemic EKG changes. Apparently, he has a nuclear stress test done on 05/12/2018 showed no reversible ischemia; however, he did have a fixed inferior defect, and ejection fraction of 50%. Given his Lasix drip, his creatinine has risen from 2.1 to 2.6 and as he remained hemodynamically stable and afebrile and his oxygen saturation has normalized on room air. In fact, his oxygen today is 98% on room air. Decision was made to discharge him home with home health to hold his diuretics for next 2 days, mainly Saturday and and to resume it on Saturday. He was also discharged to continue oral antibiotic in the form of Augmentin at 500/125 one tablet twice a day for 7 days and doxycycline 100 mg twice a day for 7 days to continue treatment of left lower extremity cellulitis. PHYSICAL EXAMINATION: GENERAL: When I saw him this afternoon, he looked well and was clearly in no apparent respiratory distress. No pallor, jaundice, cyanosis, or thyromegaly. No jugular venous distension. No limb edema. VITAL SIGNS: His heart rate was 88, blood pressure 154/57, temperature was 98.1, respiratory rate was 18 and oxygen saturation was 96%. HEAD, EYES, EARS, NOSE AND THROAT: Showed normocephalic, atraumatic. NECK: Supple. HEART: Showed normal first and second heart sounds. No gallop, rub or murmur. CHEST: Clear to auscultation. No crepitation or rhonchi. ABDOMEN: Distended, soft, nontender. NEUROLOGIC: He was awake, alert, responding appropriately. All his cranial nerves are intact. He moves extremities with a walker. He has bilateral lower extremity lymphedema, for which he has an appointment to be seen at [facility] for lymphedema wrap and will have a followup with the Cardiology team in 2 weeks' time. His intake over the last 24 hours was 3050, output was 4200. LABORATORY DATA: His lab work as of this morning showed a serum sodium 143, potassium 3.6, chloride 106, bicarbonate 30, anion gap of 7, BUN 40, creatinine 2.6. Estimated GFR was 30 mL per minute. His glucose 146, calcium was 8.2. His white cell count was 8700, hemoglobin 10.7, hematocrit 33, MCV 83, and platelet count of 153,000. His influenza A and B were negative. His nasal screen for MRSA/PCR was negative. Urinalysis was essentially unremarkable and toxic screen showed his vancomycin trough level was 15. DISCHARGE MEDICATIONS: He was discharged home to continue on amoxicillin/potassium clavulanic acid 500/125 one tablet twice a day for 7 days and doxycycline hyclate 100 mg twice a day for 7 days. Should continue on albuterol sulfate by nebulizer every 4 hours as needed, amlodipine besylate 10 mg once a day, furosemide 40 mg daily, ipratropium bromide, albuterol sulfate for Combivent, Respimat inhaler one puff every 6 hours, pioglitazone for Actos 30 mg once a day, potassium chloride 10 mEq twice a day and simvastatin 80 mg at bedtime. FINAL DISCHARGE DIAGNOSES: 1. Acute respiratory insufficiency, multifactorial including chronic obstructive pulmonary disease exacerbation, diastolic congestive heart failure, morbid obesity with possible obstructive sleep apnea. 2. Opbnh-lm-zqewuoj diastolic congestive heart failure. 3. Elevated troponin with no acute ischemic EKG changes, likely due to demand ischemia. 4. Chronic kidney disease with acute component. His creatinine has risen up to 2.6. 5. Hypertension, well controlled. 6. Hyperlipidemia. 7. Bilateral lymphedema. 8. Type 2 diabetes mellitus, seems to be reasonably controlled. 9. Extreme morbid obesity with suspected obstructive sleep apnea. PLAN: The patient should hold his Lasix and potassium for the next 2 days. He has an appointment with the Cardiology in 2 weeks. We did make an appointment for sleep apnea. The patient will follow with the [facility] for lymphedema, sleep lab for obstructive sleep apnea and the Cardiology team. LEONILA COLMENARES MD DR: TINY/gaurav JOB#: [id number] / [id number]
== END 2018-11-25 16:49 | disposition home health service (06) | DRG 871 ==
LOC: ER 14:33 → ICU 17:15
PROVIDERS: ADMIT Family Medicine; ATTEND Internal Medicine
PROC: 5A09357 Assistance with Respiratory Ventilation, Less than 24 Consecutive Hours, Continuous Positive Airway Pressure (ICD-10-PCS; principal; 2018-11-21)
PROC: 5A09357 Assistance with Respiratory Ventilation, Less than 24 Consecutive Hours, Continuous Positive Airway Pressure (ICD-10-PCS; 2018-11-22)
DX: A41.9 Sepsis, unspecified organism (principal); I50.33 Acute on chronic diastolic (congestive) heart failure; J96.01 Acute respiratory failure with hypoxia; I13.0 Hypertensive heart and chronic kidney disease with heart failure and stage 1 through stage 4 chronic kidney disease, or unspecified chronic kidney disease; I24.8 Other forms of acute ischemic heart disease; J44.1 Chronic obstructive pulmonary disease with (acute) exacerbation; Z68.41 Body mass index [BMI] 40.0-44.9, adult; L03.116 Cellulitis of left lower limb; D64.9 Anemia, unspecified; N18.3 Chronic kidney disease, stage 3 (moderate); E11.22 Type 2 diabetes mellitus with diabetic chronic kidney disease; E66.01 Morbid (severe) obesity due to excess calories; E78.00 Pure hypercholesterolemia, unspecified; E78.5 Hyperlipidemia, unspecified; G47.33 Obstructive sleep apnea (adult) (pediatric); I25.10 Atherosclerotic heart disease of native coronary artery without angina pectoris; I87.2 Venous insufficiency (chronic) (peripheral); I87.8 Other specified disorders of veins; I89.0 Lymphedema, not elsewhere classified; K21.9 Gastro-esophageal reflux disease without esophagitis; R65.20 Severe sepsis without septic shock; Z80.42 Family history of malignant neoplasm of prostate; Z83.3 Family history of diabetes mellitus; Z87.891 Personal history of nicotine dependence; Z90.49 Acquired absence of other specified parts of digestive tract
CPT/HCPCS: 36415; 36600; 71045; 80048; 80053; 80069; 80202; 81001; 82553; 82575; 82803; 82947; 83036; 83540; 83550; 83605; 83880; 83970; 84145; 84439; 84443; 84484; 85025; 85379; 85610; 86140; 87040; 87641; 87804; 93005; 93308; 93320; 93325; 93926; 93970; 94640; 94660; 96361; 96365; 96375; J1100; J1644; J1815; J1940; J2543; J3370; J7040; J7512; J7613; J7620; 97530; 99285-25; J7030

== ENCOUNTER → 2018-11-28 | Outpatient (CLI) | payer OTHER ==
[2018-11-25 12:57] VITALS: BP 154/57
[~2018-11-28] MED LIST changes: +AMOX1TAB10 PO; +DOXY100C2 PO
[2018-11-28 11:57] LABS: ALBUMIN 3.2 g/dL (3.4-5.0); ALBUMIN/GLOBULIN RATIO 0.9 (1.0-1.7); CALCIUM 8.3 mg/dL (8.5-10.1); CREATININE 1.8 mg/dL (0.7-1.3); GFR 45.8; POTASSIUM 3.5 mmol/L (3.5-5.1); TOTAL BILIRUBIN 0.4 mg/dL (0.2-1.0); TOTAL PROTEIN 6.9 g/dL (6.4-8.2)
== END | disposition home or self-care (01) ==
LOC: SPEC 11:33
PROVIDERS: ATTEND Family Medicine
DX: E11.9 Type 2 diabetes mellitus without complications (principal); I10 Essential (primary) hypertension; J44.9 Chronic obstructive pulmonary disease, unspecified; I50.9 Heart failure, unspecified
CPT/HCPCS: 36415; 80053

== ENCOUNTER 2019-02-05 02:36 | Emergency (ER) | payer OTHER ==
[~2019-02-05 02:36] MED LIST changes: +EPINEPHrine SYRINGE 1 MG/10 ML SYRINGE ONE; +ETOMIDATE 40 MG/20 ML VIAL. IV ONE; +ROCURONIUM 50 MG/5 ML VIAL. ONE; +SODIUM BICARB ADULT 8.4% 50 MEQ/50 ML DISP.SYRIN. ONE
--- NOTE | 2019-02-05 04:29 | RAD ---
AP portable chest radiograph 02/04/2019 Clinical History: CODE BLUE. Post intubation. An AP portable digital radiograph of the chest was obtained. Comparison study is dated 11/24/2018. An ET tube is been placed. The tube overlies the trachea. The tip of this tube is obscured by an overlying monitoring lead, but is near the moe. A NG tube has been placed. The tip of this tube overlies the mid thoracic esophagus. The cardiac silhouette is mildly enlarged. The thoracic aorta is mildly tortuous. Perihilar infiltrates are seen involving both lungs. No pneumothorax or pleural effusion is seen. The osseous structures are unchanged. Impression: 1. The tip of the ET tube is obscured by an overlying monitor lead but appears to be near the moe. 2. A NG tube has been placed. The tip of this tube overlies the mid thoracic esophagus. Electronically signed by: Koffi Shine MD (02/05/2019 4:26 AM) [id number]
--- NOTE | 2019-02-05 04:38 | PHYS DOC ---
Past History Past Medical History: Anemia, Asthma, CAD, CHF, Diabetes, High Cholesterol, Heart Disease, Hypertension, Renal Failure, Other Past Medical History Unable to obtain due to acuity of condition Past Surgical History: Appendectomy, Cholecystectomy, Other Past Surgical History Unable to obtain due to acuity of condition Smoking: Non-smoker Alcohol Use: Sober Drug Use: None Social History Unable to obtain due to acuity of condition Adult General Chief Complaint Chief Complaint: SOA HPI HPI 68-year-old morbidly obese male with past medical history of COPD, CHF, CAD, diabetes, high blood pressure, and renal failure presents via EMS with report of sudden shortness of breath which started this evening. Patient was noted to be 95% upon EMS arrival and upon transport patient dropped O2 Sats down to 50s%. CPAP was placed with minimal improvement up to 65%. Per son patient had been "doing well" until tonight. Denies known leg pain or chest pain. Denies known fever or chills. History of present illness limited due to acuity of condition. Review of Systems Review of Systems Respiratory: Reports shortness of breath Review of systems Limited due to acuity of condition. Allergies Allergies Allergies Coded Allergies Type Severity Reaction Last Updated Verified No Known Drug Allergies 06/29/14 No Physical Exam Physical Exam Constitutional: Well developed, well nourished, morbidly obese patient, in severe respiratory distress with agonal respirations HENT: Normocephalic, atraumatic, oropharynx moist, missing upper front tooth due to dental decay Eyes: Conjunctiva normal, no discharge Neck: No crepitance supple Cardiovascular: Remote heart sounds on auscultation, thready pulses to femoral o r carotid arteries Lungs & Thorax: Diminished breath sounds with scattered wheezing, Initial agonal respirations Abdomen: Soft, Obese Skin: Warm, dry, no rash Extremities: Large obese legs with chronic venous stasis changes, 1-2+ nonpitting edema Neurologic: Unresponsive, GCS 3 (eyes1,verbal1,motor1) EKG EKG [] Radiology/Procedures Radiology/Procedures CXR AP: (preliminary interpretation by ED physician): Limited view due to patient's girth. ETT appears to be at moe and possibly partially past into right mainstem. (ETT adjusted back) Course & Med Decision Making Course & Med Decision Making Morbidly obese male with multiple comorbidities presents in respiratory distress with hypoxia. EMS noted patient's O2 sat initially 95% which suddenly dropped in route and was unable to return despite CPAP. Patient with GCS of 3 upon arrival with agonal respirations and thready pulses. Decision to emergently intubate. Patient subsequently without pulses. CPR initiated with ACLS protocol with initial rhythm of PEA at 0252. Blood sugar 140. Intubation preformed with Glidescope with placement of 8.0 ETT which was 27cm at lip. Positive ETCO2 and fogging of tube. Decreased breath sounds on right and CXR with concern for tip at moe and possibly partially down right mainstem. ETT adjusted back to 24cm at lip. OGT placed. ACLS with compressions continued with total of 7 rounds of epi and 1 round of Bicarb given. Patient did have return of spontaneous rhythm at 0310 with bradycardic rate demonstrated on monitoring and bedside ultrasound. Patient began to gabrielle down at 0316 and then loss of pulse at 0321. Continued ACLS. Pulse oximetry continued to decrease even with appropriate chest compressions. Concern for possible PE given obesity, sudden onset of symptoms and marked decrease in pulse oximetry. Discussed with patient's son who accompanied patient and helped make decision to discontinue further resuscitative efforts. Time of called at 0354 as lack of cardiac activity confirmed on bedside ultrasound. Discussed current findings with family, who acknowledge understanding and agreement. Dragon Disclaimer Dragon Disclaimer This electronic medical record was generated, in whole or in part, using a voice recognition dictation system. Intubation Intubation : Time of Intubation: 02:54 Intubation Method: orotracheal Tube Size (cm): 8.0 Breath Sounds after Intubation: right greater than left Intubation Complications: no complications Post Intubation Xray: Yes Progress/Xray Impression: ETT at sandra. ETT adjusted back to 24cm at lip from 27cm at lip. Progress Emergent consent utilized. Hand hygiene utilized. Departure Departure: Impression: Primary Impression: Cardiopulmonary arrest Disposition: 20 Condition: CRITICAL Referrals: MINOR SHIRLEY MD (PCP) Critical Care Time Critical care time was 45 minutes which includes time at bedside, spent in discussion of patient's care with specialists and/or family members, with interpretation of laboratory and/or radiological studies and is exclusive of procedures. JOSE F FAULKNER DO Feb 05, 2019 04:37
== END 2019-02-05 16:01 | disposition expired ==
LOC: ER 02:36
DX: I46.9 Cardiac arrest, cause unspecified (principal); K02.9 Dental caries, unspecified; J45.909 Unspecified asthma, uncomplicated; I25.10 Atherosclerotic heart disease of native coronary artery without angina pectoris; E78.00 Pure hypercholesterolemia, unspecified; I13.0 Hypertensive heart and chronic kidney disease with heart failure and stage 1 through stage 4 chronic kidney disease, or unspecified chronic kidney disease; E11.22 Type 2 diabetes mellitus with diabetic chronic kidney disease; N18.9 Chronic kidney disease, unspecified; I50.9 Heart failure, unspecified; Z86.2 Personal history of diseases of the blood and blood-forming organs and certain disorders involving the immune mechanism
CPT/HCPCS: 31500; 71045; 82947; 92950; 99291; J0171